=== PATIENT | male | born 1935 | race Caucasian/White ===

== ENCOUNTER → 2017-10-07 | Outpatient (CLI) | payer OTHER, MEDICARE | LOC: M RAD 07:36 | DX: Z12.2 Encounter for screening for malignant neoplasm of respiratory organs (principal); R06.02 Shortness of breath; J44.9 Chronic obstructive pulmonary disease, unspecified; I25.10 Atherosclerotic heart disease of native coronary artery without angina pectoris | CPT/HCPCS: G0297 ==

== ENCOUNTER → 2018-07-04 | Outpatient (CLI) | payer MEDICARE ==
[~2018-07-04] MED LIST: /THIA10TA; ACET65TA; AMIO1TAB; ASPI81TA3; COLA100C2; COUM1TAB; COUM1TAB18; COUM1TAB19; FERROUS GLUCONATE; HALO1TAB19; HYDROCODONE-ACETAMIN; KLON0.5T; LASI20TA; LOPR50TA; MILKSUS; MYLATAB; NITR0.4S; PRIL20CA; PROZ20CA; SENN8.6T5; SUCR1TAB56; THERGRAN; TYLENOL
[2018-07-04 09:26] LABS: INR 1.31; PROTHROMBIN TIME 16.5 SECONDS (12.1-14.4)
== END ==
LOC: M LAB 08:11
PROVIDERS: ATTEND Physician Assistant
DX: I48.0 Paroxysmal atrial fibrillation (principal)

== ENCOUNTER 2018-10-18 15:15 | Emergency (ER) | payer MEDICARE ==
[~2018-10-18] VITALS: Ht 170.2 cm; Wt 81.8 kg
[2018-10-18] MEDS ORDERED: IPRATROPIUM 0.5MG/ALBUTEROL 2.5MG INH SOL UD 3ML (DUONEB)(J7620) NEB ONE ×2 (16:00→20:45)
[2018-10-18 16:36] LABS: BASO % 0.4 % (0.0-1.0); EOS # 0.2 10^3/uL (0.0-0.50); EOS % 3.8 % (0.0-3.0); HEMATOCRIT 55.5 % (42.0-52.0); HEMOGLOBIN 18.2 g/dl (13.5-17.5); LYMPH # 1.7 10^3/uL (1.5-4.5); LYMPH % 33.3 % (24.0-44.0); MEAN CORPUSCULAR HEMOGLOBIN 35.3 pg (27.0-33.0); MEAN CORPUSCULAR HGB CONC 32.8 g/dl (32.0-36.5); MEAN CORPUSCULAR VOLUME 107.6 fl (80.0-96.0); MONO # 0.5 10^3/uL (0.0-0.8); MONO % 9.5 % (0.0-5.0); NEUTROPHILS # 2.7 10^3/uL (1.8-7.7); NEUTROPHILS % 52.8 % (36.0-66.0); PLATELET COUNT, AUTOMATED 106 10^3/uL (150-450); RED BLOOD COUNT 5.16 10^6/uL (4.30-6.10); WHITE BLOOD COUNT 5.1 10^3/uL (4.0-10.0)
[2018-10-18 16:43] LABS: INR 1.12; PROTHROMBIN TIME 14.1 SECONDS (11.8-14.0); VENOUS BASE EXCESS 5.3 (-2.0-2.0); VENOUS HCO3 33.1 MEQ/L (23.0-27.0); VENOUS O2 SATURATION 95.4 % (60.0-80.0); VENOUS PARTIAL PRESSURE CO2 58.9 mmHg (38.0-50.0); VENOUS PARTIAL PRESSURE O2 81.8 mmHg (30.0-50.0); VENOUS PH 7.368 UNITS (7.330-7.430); VENOUS STANDARD HCO3 29.1 MEQ/L; VENOUS TOTAL CO2 34.9 MEQ/L (24.0-28.0)
--- NOTE | 2018-10-18 16:50 | REP ---
PA and lateral chest: Comparison is 04/20/2015. Lung churchill are hyperinflated. This is unchanged. There is chronic interstitial coarsening, this is unchanged. The chronic lung findings are compatible with chronic lung disease. There are sternotomy wires, unchanged. Cardiac size is upper normal, unchanged. The arcelia, mediastinum, and skeletal structures are unchanged. Impression: There are chronic findings as described. There are no acute cardiopulmonary findings. Electronically Signed by Jorje Rodriguez MD 10/18/2018 04:41 P
[2018-10-18 17:04] LABS: ALBUMIN 3.3 GM/DL (3.2-5.2); ALT/SGPT 26 U/L (12-78); BILIRUBIN,DIRECT 0.1 MG/DL (0.0-0.2); BILIRUBIN,TOTAL 0.3 MG/DL (0.2-1.0); BLOOD UREA NITROGEN 11 MG/DL (7-18); CALCIUM LEVEL 8.8 MG/DL (8.8-10.2); CARBON DIOXIDE LEVEL 32 MEQ/L (21-32); CHLORIDE LEVEL 102 MEQ/L (98-107); CK-MB VALUE MASS 3.8 NG/ML (<3.6); CPK CREATINE PHOSPHOKINASE 110 U/L (39-308); CREATININE FOR GFR 0.82 MG/DL (0.70-1.30); GLOMERULAR FILTRATION RATE > 60.0 (>35); GLUCOSE, FASTING 114 MG/DL (70-100); MB/CK RELATIVE INDEX 3.45 (< OR =4); NT-PRO BNP 531 PG/ML (<450); POTASSIUM SERUM 4.4 MEQ/L (3.5-5.1); SODIUM LEVEL 139 MEQ/L (136-145); TOTAL PROTEIN 7.1 GM/DL (6.4-8.2); TROPONIN I 0.03 NG/ML (< 0.10)
[2018-10-18] MEDS ORDERED: NS 500 ML IV ONE (17:30)
[2018-10-18] MEDS ORDERED: DOXYCYCLINE HYCLATE 100 MG TAB PO ONE (19:45)
[2018-10-18 20:18] VITALS: O2SAT 89
[2018-10-18] MEDS ORDERED: DOXY100C37 PO (20:47)
[2018-10-18 21:13] VITALS: BP 136/75
[2018-10-19] MEDS ORDERED: MULTCAP PO (02:50)
[2018-10-19] MEDS ORDERED: ACET-683 PO (02:50)
[2018-10-19] MEDS ORDERED: OMEP-218 PO (02:52)
[2018-10-19] MEDS ORDERED: COMBAER6 INH (02:52)
[2018-10-19] MEDS ORDERED: NITR0.4S14 SL (02:52)
[2018-10-19] MEDS ORDERED: ATOR40TA75 PO (02:52)
[2018-10-19] MEDS ORDERED: ELIQ5TAB PO (02:52)
[2018-10-19] MEDS ORDERED: THIA100TA PO (02:52)
--- NOTE | 2018-10-19 21:14 | ECGEPIP ---
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
== END 2018-10-18 21:42 | disposition home or self-care (01) ==
LOC: M ED 15:15
DX: J44.9 Chronic obstructive pulmonary disease, unspecified (principal); I44.4 Left anterior fascicular block; I45.10 Unspecified right bundle-branch block; F33.9 Major depressive disorder, recurrent, unspecified; Z91.048 Other nonmedicinal substance allergy status; Z79.899 Other long term (current) drug therapy; Z79.82 Long term (current) use of aspirin; Z79.01 Long term (current) use of anticoagulants; F17.290 Nicotine dependence, other tobacco product, uncomplicated

== ENCOUNTER 2018-10-18 23:48 | Observation (INO) | payer MEDICARE ==
[~2018-10-18] VITALS: Ht 170.2 cm; Wt 85.2 kg
[~2018-10-18 23:48] MED LIST changes: +DOXY100C37 PO
[2018-10-19] MEDS ORDERED: IPRATROPIUM 0.5MG/ALBUTEROL 2.5MG INH SOL UD 3ML (DUONEB)(J7620) NEB ONE (02:15)
[2018-10-19] MEDS ORDERED: ACET-683 PO (02:50)
[2018-10-19] MEDS ORDERED: MULTCAP PO (02:50)
[2018-10-19] MEDS ORDERED: ELIQ5TAB PO (02:52)
[2018-10-19] MEDS ORDERED: NITR0.4S14 SL (02:52)
[2018-10-19] MEDS ORDERED: THIA100TA PO (02:52)
[2018-10-19] MEDS ORDERED: OMEP-218 PO (02:52)
[2018-10-19] MEDS ORDERED: ATOR40TA75 PO (02:52)
[2018-10-19] MEDS ORDERED: COMBAER6 INH (02:52)
[2018-10-19] MEDS ORDERED: MAALOX 30 ML SUSP *UDC PO PRN (03:00)
[2018-10-19] MEDS ORDERED: MOM 30ML SUSPENSION UDC PO PRN (03:00)
[2018-10-19] MEDS ORDERED: ACETAMINOPHEN TAB 650MG DOSE (2X325MG) PO PRN (03:00)
[2018-10-19] MEDS ORDERED: IPRATROPIUM 0.5MG/ALBUTEROL 2.5MG INH SOL UD 3ML (DUONEB)(J7620) NEB PRN (03:00)
--- NOTE | 2018-10-19 03:00 | HPEPDOC ---
General Date of Admission 10/19/18 Date of Service: Oct 19, 2018 Attending Physician: SUDHEER DENNIS MD Chief Complaint The patient is a 83-year-old male admitted with a reason for visit of Respiratory Iss[place]. Source: Patient, Family Exam Limitations: No limitations Timing/Duration: 1-3 hours Severity: Severe Associated Symptoms: Shortness of breath History of Present Illness 83 years old white male with past medical history of COPD 5. Double bypass pericardial window, aneurysm repair seen and discharged from ED with exacerbation of COPD as he has refused to be admitted and signed out AMA and left ,after about an hour he comes back to the ED and decides that he needs to be admitted as he was having shortness of breath at home. Patient complaining of increasing shortness of breath, no chest pain, nausea, vomiting, syncope, etc. Home Medications Scheduled Apixaban (Eliquis) 5 Mg Tablet, 5 MG PO BID, (Reported) Atorvastatin Calcium (Atorvastatin Calcium) 40 Mg Tablet, 40 MG PO QHS, (Reported) Ipratropium/Albuterol Sulfate (Combivent Respimat 20-100 Mcg) 4 Gm Mist.inhal, 1 PUFF INH QID, (Reported) Multivitamin (Multivitamins) 1 Each Capsule, 1 CAP PO QHS, (Reported) Omeprazole (Omeprazole) 20 Mg Capsule.dr, 20 MG PO DAILY, (Reported) Thiamine Hcl (Vitamin B-1) 100 Mg Tablet, 100 MG PO QHS, (Reported) Scheduled PRN Acetaminophen (Acetaminophen) 500 Mg Tablet, 500 MG PO Q6H PRN for PAIN, (Reported) Nitroglycerin (Nitroglycerin) 0.4 Mg Tab.subl, 0.4 MG SL Q5MP PRN for CHEST PAIN , (Reported) Allergies Coded Allergies: TAPE (Unverified Adverse Reaction, Intermediate, CAUSED REDNESS AND SKIN T EARS, 10/18/18) Past Medical History Medical History COPD, active smoker, bypass surgery, pericardial window, aneurysm repair status, CAD, history of hypertension, GERD Surgical History Hemorrhoidectomy pericardial window, triple bypass surgery and aneurysm repair Family History No pertinent family history Social History * Smoker: current smoker Alcohol: Denies Drugs: denies A-FIB/CHADSVASC A-FIB History Current/History of A-Fib/PAF?: Yes Current PO Anticoag Therapy: Yes Review of Systems Constitutional: Denies: Chills, Fever, Malaise, Night Sweats, Weakness, Fatigue, Weight Loss, Lethargy, Other Eyes: Denies: Pain, Vision change, Conjunctivae inflammation, Eyelid inflammation, Redness, Other ENT: Denies: Head Aches, Ear Pain, Dysphagia, Sinus Congestion, Post Nasal Drip, Sore Throat, Epistaxis, Other Symptoms Skin: Denies: Rash, Lesions, Jaundice, Bruising, Itching, Dry, Breakdown, Nail Changes, Other Pulmonary: Reports: Dyspnea Cardiovascular: Denies: Chest Pain, Palpitations, Orthopnea, Paroxysmal Noc. Dyspnea, Edema, Lt Headedness, Other Symptoms Gastrointestinal: Denies: Nausea, Vomiting, Abdominal Pain, Diarrhea, Consti pation, Melena, Hematochezia, Other Symptoms Genitourinary: Denies: Dysuria, Frequency, Incontinence, Hematuria, Retention, Other Symptoms Hematologic: Denies: Bruising, Bleeding Excessively, Petecchia, Purpura, Enlarged Lymph Nodes, Other Hematologic Endocrine: Denies: Polydipsia, Polyphagia, Polyuria, Heat Intolerance, Cold Intolerance, Other Endocrine Sx Musculoskeletal: Denies: Neck Pain, Back Pain, Shoulder Pain, Arm Pain, Hand Pain, Leg Pain, Foot Pain, Joint Pain, Muscle Pain, Spasms, Other Symptoms Neurological: Denies: Weakness, Numbness, Incoordination, Change in speech, Confusion, Seizures, Other Symptoms Psych: Denies: Mood Normal, Anxiety, Depression, Memory Issues, Thoughts of Self Harm, Anger, Thoughts of Harming Other, Other Psych Physical Examination General Exam: Positive: Alert, Cooperative Eye Exam: Positive: PERRLA, Conjunctiva & lids normal ENT Exam: Positive: Atraumatic, Mucous membr. moist/pink Neck Exam: Positive: Supple Chest Exam: Positive: Wheezing Heart Exam: Positive: Rate Normal, Normal S1, Normal S2 Abdomen Exam: Positive: Normal bowel sounds, Soft Extremity Exam: Positive: Normal pulses Skin Exam: Positive: Nl turgor and temperature Neuro Exam: Positive: Strength at 5/5 X4 ext, Normal Tone, Sensation Intact Psych Exam: Positive: Mental status NL, Mood NL Vital Signs Vital Signs Date Time Temp Pulse Resp B/P (MAP) Pulse Ox O2 Delivery O2 Flow Rate FiO2 10/19/18 02:10 Nasal Cannula 2.0 10/19/18 01:45 64 163/86 (111) 93 10/18/18 23:48 97.2 22 Problems (1) COPD (chronic obstructive pulmonary disease) Status: Acute Problem Text: 83 years old white male who was seen earlier in ED and the sign out AMA, came back again with increasing shortness of breath. Patient has a COPD with X frequent exacerbation and he is not on home oxygen but came in for admission this time Admitted to medical floor , Solu-Medrol 80 mg IV every 8 hours DuoNeb every 6 hours and every 2 hours when necessary Oxygen support Continue home meds Extensive counseling regarding smoking cessation was done. Mom patient is an active smoker DVT prophylaxis with Lovenox Activity as tolerated (2) HTN (hypertension) Status: Chronic Problem Text: Under well control Continue home meds Plan / VTE VTE Prophylaxis Ordered?: Yes SUDHEER DENNIS MD Oct 19, 2018 03:00
[2018-10-19] MEDS: methylPREDNISolone INJ 125 MG/2 ML VIAL (J2930) IV SCH ×3 (03:21→18:48)
[2018-10-19 04:10] VITALS: BP 154/75
[2018-10-19] MEDS: IPRATROPIUM 0.5MG/ALBUTEROL 2.5MG INH SOL UD 3ML (DUONEB)(J7620) NEB SCH ×3 (08:03→20:47)
[2018-10-19] MEDS: APIXABAN 5 MG TAB (ELIQUIS) PO SCH ×2 (08:53→20:29)
[2018-10-19] MEDS: PANTOPRAZOLE 20 MG TAB PO SCH (08:53)
[2018-10-19] MEDS: DOCUSATE SODIUM 100 MG CAP PO SCH ×2 (08:53→20:28)
[2018-10-19] MEDS ORDERED: ENOXAPARIN 40 MG/0.4 ML SYRINGE (J1650) SC SCH (09:00)
[2018-10-19 14:00] VITALS: BP 128/70
[2018-10-19] MEDS: ATORVASTATIN 20 MG TAB PO SCH (20:28)
[2018-10-19] MEDS: THIAMINE 100 MG TAB PO SCH (20:29)
[2018-10-19 22:00] VITALS: BP 125/61
[2018-10-20] MEDS: IPRATROPIUM 0.5MG/ALBUTEROL 2.5MG INH SOL UD 3ML (DUONEB)(J7620) NEB SCH ×4 (01:49→20:00)
[2018-10-20] MEDS: methylPREDNISolone INJ 125 MG/2 ML VIAL (J2930) IV SCH ×2 (02:37→14:46)
[2018-10-20 06:00] VITALS: BP 114/60
[2018-10-20 06:29] LABS: HEMATOCRIT 51.9 % (42.0-52.0); HEMOGLOBIN 16.9 g/dl (13.5-17.5); MEAN CORPUSCULAR HEMOGLOBIN 34.7 pg (27.0-33.0); MEAN CORPUSCULAR HGB CONC 32.6 g/dl (32.0-36.5); MEAN CORPUSCULAR VOLUME 106.6 fl (80.0-96.0); PLATELET COUNT, AUTOMATED 121 10^3/uL (150-450); RED BLOOD COUNT 4.87 10^6/uL (4.30-6.10)
[2018-10-20 06:56] LABS: ALBUMIN 3.1 GM/DL (3.2-5.2); ALT/SGPT 23 U/L (12-78); BILIRUBIN,TOTAL 0.3 MG/DL (0.2-1.0); BLOOD UREA NITROGEN 17 MG/DL (7-18); CALCIUM LEVEL 8.7 MG/DL (8.8-10.2); CARBON DIOXIDE LEVEL 32 MEQ/L (21-32); CHLORIDE LEVEL 102 MEQ/L (98-107); GLOMERULAR FILTRATION RATE > 60.0 (>35); GLUCOSE, FASTING 157 MG/DL (70-100); MAGNESIUM LEVEL 2.1 MG/DL (1.8-2.4); POTASSIUM SERUM 4.4 MEQ/L (3.5-5.1); SODIUM LEVEL 137 MEQ/L (136-145); TOTAL PROTEIN 7.1 GM/DL (6.4-8.2)
[2018-10-20] MEDS: DOCUSATE SODIUM 100 MG CAP PO SCH ×2 (08:31→21:13)
[2018-10-20] MEDS: PANTOPRAZOLE 20 MG TAB PO SCH (08:31)
[2018-10-20] MEDS: APIXABAN 5 MG TAB (ELIQUIS) PO SCH ×2 (08:31→21:13)
--- NOTE | 2018-10-20 10:53 | IPNPDOC ---
Subjective Date Seen The patient was seen on 10/20/18. Subjective Chief Complaint/HPI Patient seen and examined at bedside. He is currently requiring 2 L of oxygen at this time. However, notes that his shortness of breath has improved. States that he has been walking in his room. However, continues to have some wheezing. No acute overnight events noted. Objective Physical Examination General Exam: Positive: Alert, Cooperative, No Acute Distress ENT Exam: Positive: Atraumatic, Mucous membr. moist/pink Neck Exam: Negative: JVD Chest Exam: Positive: Wheezing, Diminished Heart Exam: Positive: Rate Normal, Normal S1, Normal S2 Abdomen Exam: Positive: Soft; Negative: Tenderness Extremity Exam: Negative: Tenderness, Swelling Psych Exam: Positive: Mental status NL, Mood NL, Oriented x 3 Assessment /Plan Problems (1) COPD (chronic obstructive pulmonary disease) Status: Acute Response to Treatment: Improving Problem Text: Reports that his respiratory status is improving, and notes less shortness of breath Solu-Medrol 80 mg IV every 8 hours titrated down to 40mg every 12 DuoNeb every 6 hours scheduled and every 2 hours when necessary Patient requiring 2 L of oxygen via nasal cannula at this time (not on oxygen at baseline), we will down titrate this as tolerated We will continue to monitor patient's respiratory status, and hopefully switch him over to by mouth prednisone taper starting tomorrow. Plan/VTE VTE Prophylaxis Ordered?: Yes VS, I&O, 24H, Fishbone Vital Signs/I&O Vital Signs Date Time Temp Pulse Resp B/P (MAP) Pulse Ox O2 Delivery O2 Flow Rate FiO2 10/20/18 06:00 97.6 74 20 114/60 (78) 95 2.0 10/19/18 03:45 Nasal Cannula I&O- Last 24 Hours up to 6 AM 10/20/18 06:00 Intake Total 1660 ml Output Total 0 ml Balance 1660 ml Laboratory Data 24H LABS Laboratory Tests 2 10/20/18 05:42: Nucleated Red Blood Cells % (auto) 0.0, Anion Gap 3L, Glomerular Filtration Rate > 60.0, Blood Urea Nitrogen 17#, Creatinine 0.90, Sodium Level 137, Potassium Level 4.4, Chloride Level 102, Carbon Dioxide Level 32, Calcium Level 8.7L, Aspartate Amino Transf (AST/SGOT) 17, Alanine Aminotransferase (ALT/SGPT) 23, Alkaline Phosphatase 45, Total Bilirubin 0.3, Total Protein 7.1, Albumin 3.1L, Magnesium Level 2.1, Albumin/Globulin Ratio 0.78L CBC/BMP Laboratory Tests 10/20/18 05:42 Red Blood Count 4.87, Mean Corpuscular Volume 106.6 H, Mean Corpuscular Hemoglobin 34.7 H, Mean Corpuscular Hemoglobin Concent 32.6, Red Cell Distribution Width 12.7, Calcium Level 8.7 L, Aspartate Amino Transf (AST/SGOT) 17, Alanine Aminotransferase (ALT/SGPT) 23, Alkaline Phosphatase 45, Total Bilirubin 0.3, Total Protein 7.1, Albumin 3.1 L MARISABEL HUGHES MD Oct 20, 2018 10:53
[2018-10-20 14:00] VITALS: BP 135/60
[2018-10-20] MEDS: THIAMINE 100 MG TAB PO SCH (21:13)
[2018-10-20] MEDS: ATORVASTATIN 20 MG TAB PO SCH (21:13)
[2018-10-20 22:00] VITALS: BP 132/66
[2018-10-21] MEDS: IPRATROPIUM 0.5MG/ALBUTEROL 2.5MG INH SOL UD 3ML (DUONEB)(J7620) NEB SCH ×2 (01:12→07:12)
[2018-10-21] MEDS: methylPREDNISolone INJ 125 MG/2 ML VIAL (J2930) IV SCH (03:51)
[2018-10-21 06:00] VITALS: BP 123/65
[2018-10-21] MEDS: DOCUSATE SODIUM 100 MG CAP PO SCH (08:26)
[2018-10-21] MEDS: APIXABAN 5 MG TAB (ELIQUIS) PO SCH (08:26)
[2018-10-21] MEDS: PANTOPRAZOLE 20 MG TAB PO SCH (08:26)
[2018-10-21] MEDS ORDERED: PRED20TA PO (08:48)
[2018-10-21] MEDS ORDERED: ALBU8.5H IH (08:48)
--- NOTE | 2018-10-21 08:55 | DS.PDOC ---
Discharge Summary General Date of Admission Oct 18, 2018 at 23:49 Date of Discharge 10/21/18 Primary Care Physician: JAROCHO MONAE Attending Physician: VANESSA ELLISON DO Discharge Summary PROCEDURES PERFORMED DURING STAY:NONE ADMITTING DIAGNOSES: 1.COPD Exacerbation DISCHARGE DIAGNOSES: 1. COPD EXACERBATION COMPLICATIONS/CHIEF COMPLAINT: COPD. HISTORY OF PRESENT ILLNESS: 83 years old white male with past medical history of COPD , Double bypass w pe ricardial window, aneurysm repair who was seen and discharged from ED with exacerbation of COPD as he has refused to be admitted and signed out AMA and left ,after about an hour he comes back to the ED and decides that he needs to be admitted as he was having shortness of breath at home. See H&P for details HOSPITAL COURSE: placed under observation, continued home meds and started on IV steroids and nebulizers. Continued to improve and prior to discharge states he breathing was at baseline and was ambulating in room without supplemental oxygen. DISCHARGE MEDICATIONS: Please see below. ALLERGIES: Please see below. PHYSICAL EXAMINATION ON DISCHARGE: VITAL SIGNS: Please see below. General: pleasant, NAD AAOx3 HRRR LCTA no W/R/R Ext: no edema LABORATORY DATA: Please see below. ACTIVITY: as tolerated; avoid outdoor activity/exercise on hot muggy days DIET:as tolerated DISCHARGE PLAN: discharge home DISCHARGE INSTRUCTIONS: 1. follow up PCP in 5-7 days 2. albuterol rescue inhaler as needed 3. steroid taper ([id number], 30mg x3days, 20mg x2 days, 10mg and stop) DISCHARGE CONDITION: stable TIME SPENT ON DISCHARGE: 20 minutes. Vital Signs/I&Os Vital Signs Date Time Temp Pulse Resp B/P (MAP) Pulse Ox O2 Delivery O2 Flow Rate FiO2 10/21/18 06:00 97.9 73 20 123/65 (84) 91 2.0 10/19/18 03:45 Nasal Cannula I&O- Last 24 Hours up to 6 AM 10/21/18 06:00 Intake Total 1680 ml Output Total 0 ml Balance 1680 ml Laboratory Data Labs 24H Laboratory Tests 10/20/18 05:42 Red Blood Count 4.87, Mean Corpuscular Volume 106.6 H, Mean Corpuscular Hemoglobin 34.7 H, Mean Corpuscular Hemoglobin Concent 32.6, Red Cell Distribution Width 12.7, Calcium Level 8.7 L, Aspartate Amino Transf (AST/SGOT) 17, Alanine Aminotransferase (ALT/SGPT) 23, Alkaline Phosphatase 45, Total Bilirubin 0.3, Total Protein 7.1, Albumin 3.1 L Discharge Medications Scheduled Apixaban (Eliquis) 5 Mg Tablet, 5 MG PO BID, (Reported) Atorvastatin Calcium (Atorvastatin Calcium) 40 Mg Tablet, 40 MG PO QHS, (Reported) Ipratropium/Albuterol Sulfate (Combivent Respimat 20-100 Mcg) 4 Gm Mist.inhal, 1 PUFF INH QID, (Reported) Multivitamin (Multivitamins) 1 Each Capsule, 1 CAP PO QHS, (Reported) Omeprazole (Omeprazole) 20 Mg Capsule.dr, 20 MG PO DAILY, (Reported) Prednisone (Prednisone) 20 Mg Tablet, 1 TAB PO ASDIRECTED 40MG DAILY FOR 4 DAYS, 30MG FOR 3 DAYS, 20MG FOR 2 DAYS, 10MG FOR 1 DAY AND STOP Thiamine Hcl (Vitamin B-1) 100 Mg Tablet, 100 MG PO QHS, (Reported) Scheduled PRN Acetaminophen (Acetaminophen) 500 Mg Tablet, 500 MG PO Q6H PRN for PAIN, (Re ported) Albuterol Sulfate (Albuterol Sulfate Hfa) 8.5 Gm Hfa.aer.ad, 8.5 GM IH Q4HP PRN for SHORTNESS OF BREATH Nitroglycerin (Nitroglycerin) 0.4 Mg Tab.subl, 0.4 MG SL Q5MP PRN for CHEST PAIN , (Reported) Allergies Coded Allergies: TAPE (Unverified Adverse Reaction, Intermediate, CAUSED REDNESS AND SKIN TEARS, 10/18/18) VANESSA ELLISON DO Oct 21, 2018 08:49
== END 2018-10-21 12:28 | disposition home or self-care (01) ==
LOC: M ED 23:48 → M ED INP 23:49 → M MSPAV 10-19 04:08
PROVIDERS: ADMIT Internal Medicine; ATTEND Family Medicine
DX: J44.1 Chronic obstructive pulmonary disease with (acute) exacerbation (principal); I25.10 Atherosclerotic heart disease of native coronary artery without angina pectoris; I10 Essential (primary) hypertension; K21.9 Gastro-esophageal reflux disease without esophagitis; I48.91 Unspecified atrial fibrillation; Z79.01 Long term (current) use of anticoagulants; Z95.1 Presence of aortocoronary bypass graft; Z79.52 Long term (current) use of systemic steroids; Z79.51 Long term (current) use of inhaled steroids; Z79.899 Other long term (current) drug therapy
CPT/HCPCS: 36415; 71046; 80048; 80053; 80076; 82550; 82553; 82803; 83605; 83735; 83880; 84443; 84484; 85025; 85027; 85610; 87040; 93005; 93041; 94640; 96374; 96376; 99285; G0378; J2930

== ENCOUNTER 2018-11-05 09:25 | Inpatient (IN) | payer MEDICARE ==
[~2018-11-05] VITALS: Ht 172.7 cm; Wt 83.0 kg
[~2018-11-05 09:25] MED LIST changes: +ACET-683 PO; +ALBU8.5H IH; +ATOR40TA75 PO; +COMBAER6 INH; +ELIQ5TAB PO; +MULTCAP PO; +NITR0.4S14 SL; +OMEP-218 PO; +PRED20TA PO; +THIA100TA PO
--- NOTE | 2018-11-05 10:32 | REP ---
PROCEDURE: CT scan of the head was performed without IV contrast in the axial plane. INDICATION: Trauma. COMPARISON: CT head of 01/07/2008. FINDINGS: There is minimal thickening of the anterior right frontal scalp. There is no calvarial fracture. There is no acute intracranial hemorrhage, midline shift or basal cisterns effacement. There is similar asymmetry of the frontal horns of the lateral ventricles, right smaller than left. There is no hydrocephalus. There are periventricular hypodensities which are nonspecific but suggestive of microvascular ischemic disease. Note is made intracranial vascular calcifications. The orbits are intact. The visualized paranasal sinuses and mastoid air cells are grossly aerated. IMPRESSION: No acute intracranial abnormality. Electronically Signed by Francheska Santana MD 11/05/2018 10:24 A
[2018-11-05 10:45] LABS: BASO % 0.4 % (0.0-1.0); EOS # 0.2 10^3/uL (0.0-0.50); EOS % 3.8 % (0.0-3.0); HEMATOCRIT 53.7 % (42.0-52.0); HEMOGLOBIN 17.8 g/dl (13.5-17.5); LYMPH % 36.4 % (24.0-44.0); MEAN CORPUSCULAR HEMOGLOBIN 34.2 pg (27.0-33.0); MEAN CORPUSCULAR HGB CONC 33.1 g/dl (32.0-36.5); MEAN CORPUSCULAR VOLUME 103.1 fl (80.0-96.0); MONO # 0.4 10^3/uL (0.0-0.8); MONO % 7.4 % (0.0-5.0); NEUTROPHILS # 2.9 10^3/uL (1.8-7.7); NEUTROPHILS % 51.8 % (36.0-66.0); PLATELET COUNT, AUTOMATED 112 10^3/uL (150-450); RED BLOOD COUNT 5.21 10^6/uL (4.30-6.10); WHITE BLOOD COUNT 5.5 10^3/uL (4.0-10.0)
[2018-11-05 10:54] LABS: INR 1.22; PROTHROMBIN TIME 15.1 SECONDS (11.8-14.0)
[2018-11-05 11:21] LABS: BLOOD UREA NITROGEN 13 MG/DL (7-18); CALCIUM LEVEL 9.1 MG/DL (8.8-10.2); CARBON DIOXIDE LEVEL 32 MEQ/L (21-32); CHLORIDE LEVEL 103 MEQ/L (98-107); CK-MB VALUE MASS 3.2 NG/ML (<3.6); CPK CREATINE PHOSPHOKINASE 109 U/L (39-308); GLOMERULAR FILTRATION RATE > 60.0 (>35); GLUCOSE, FASTING 149 MG/DL (70-100); MAGNESIUM LEVEL 2.1 MG/DL (1.8-2.4); MB/CK RELATIVE INDEX 2.94 (< OR =4); POTASSIUM SERUM 4.5 MEQ/L (3.5-5.1); SODIUM LEVEL 139 MEQ/L (136-145); TROPONIN I < 0.02 NG/ML (< 0.10)
[2018-11-05] MEDS ORDERED: ASPI81TA85 PO (13:08)
[2018-11-05] MEDS ORDERED: PROAAER10 INH (13:08)
[2018-11-05] MEDS ORDERED: OMEG10002 PO (13:08)
[2018-11-05] MEDS ORDERED: NITR0.4S14 SL (13:11)
[2018-11-05] MEDS ORDERED: MOM 30ML SUSPENSION UDC PO PRN (14:00)
[2018-11-05] MEDS ORDERED: ACETAMINOPHEN TAB 650MG DOSE (2X325MG) PO PRN (14:00)
[2018-11-05] MEDS ORDERED: ALBUTEROL 90 MCG/ACT 8GM HFA INHALER INH PRN (14:00)
--- NOTE | 2018-11-05 14:41 | HPEPDOC ---
General Date of Admission 11/05/18 Date of Service: Nov 05, 2018 Attending Physician: STEPHANIE DAS DO Chief Complaint The patient is a 83-year-old male admitted with a reason for visit of Head Inj ury. History of Present Illness Patient is 83 years old male with past medical history COPD, atrial fibrillation, bypass cardiac surgery presented hospital with history of recent syncope. Patient states he developed syncope yesterday when he was walking to the bathroom. Patient did not have any reconciliation of this event, he did not any urinary or fecal incontinence. Patient stated that he had a few episodes of syncope in the past 2 years. Denied any dizziness prior to his syncope. Patient states he drinks 1 glass of hard liquor every day. On admission patient was found to have negative head CAT scan. Patient denies fever, chills, nausea, vomiting, chest pain, palpitations, diarrhea or dysuria. Home Medications Scheduled Apixaban (Eliquis) 5 Mg Tablet, 5 MG PO BID, (Reported) Aspirin (Aspir 81) 81 Mg Tablet.dr, 81 MG PO DAILY, (Reported) Atorvastatin Calcium (Atorvastatin Calcium) 40 Mg Tablet, 40 MG PO QHS, (Reported) Ipratropium/Albuterol Sulfate (Combivent Respimat 20-100 Mcg) 4 Gm Mist.inhal, 1 PUFF INH QID, (Reported) Multivitamin (Multivitamins) 1 Each Capsule, 1 CAP PO QHS, (Reported) [place]-3/Dha/Epa/Fish Oil (Fish Oil 1,000 mg Softgel) 1 Each Capsule, 2 CAP PO DAILY, (Reported) Omeprazole (Omeprazole) 20 Mg Capsule.dr, 20 MG PO DAILY, (Reported) Thiamine Hcl (Vitamin B-1) 100 Mg Tablet, 100 MG PO QHS, (Reported) Scheduled PRN Acetaminophen (Acetaminophen) 500 Mg Tablet, 500 MG PO Q6H PRN for PAIN, (Reported) Albuterol Sulfate (Proair Hfa) 8.5 Gm Hfa.aer.ad, 2 PUFF INH Q4H PRN for SOB/WHEEZING, (Reported) Nitroglycerin (Nitroglycerin) 0.4 Mg Tab.subl, 0.4 MG SL NITRO PRN for CHEST PAIN, (Reported) Allergies Coded Allergies: TAPE (Unverified Adverse Reaction, Intermediate, CAUSED REDNESS AND SKIN TEARS, 10/18/18) Past Medical History Medical History COPD, active smoker, bypass surgery, pericardial window, aneurysm repair status, CAD, history of hypertension, GERD, AFIB Surgical History Hemorrhoidectomy pericardial window, triple bypass surgery and aneurysm repair Family History Significant Family History: No pertinent family hx Social History * Smoker: quit less than 1 year Alcohol: heavy Drugs: denies A-FIB/CHADSVASC A-FIB History Current/History of A-Fib/PAF?: Yes Current PO Anticoag Therapy: Yes Treatment Treatment ordered: Apixaban Review of Systems Other systems A pertinent 10 ROS was completed negative except stated in the HPI Physical Examination General Exam: Positive: Alert, Cooperative, No Acute Distress Eye Exam: Positive: PERRLA, Conjunctiva & lids normal, EOMI ENT Exam: Positive: Atraumatic, Mucous membr. moist/pink Neck Exam: Positive: Supple, +2 carotid pulse wo bruit; Negative: JVD, thyromegaly Chest Exam: Positive: Clear to auscultation, Normal air movement; Negative: Rales Heart Exam: Positive: Rate Normal, Irregular Rhythm Telemetry: Positive: No significant arrhythmia Abdomen Exam: Positive: Normal bowel sounds; Negative: BS Hyperactive, Tenderness Extremity Exam: Negative: Edema Skin Exam: Positive: Nl turgor and temperature; Negative: Rash Neuro Exam: Positive: Normal Speech, Strength at 5/5 X4 ext, Cranial Nerves 3- 12 NL Psych Exam: Positive: Mental status NL, Oriented x 3 Vital Signs Vital Signs Date Time Temp Pulse Resp B/P (MAP) Pulse Ox O2 Delivery O2 Flow Rate FiO2 11/05/18 12:25 60 18 90 Room Air 11/05/18 10:58 123/59 (80) 123/66 (85) 119/68 (85) 11/05/18 09:25 97.6 Laboratory Data Labs 24H Laboratory Tests 2 11/05/18 09:49: Immature Granulocyte % (Auto) 0.2, White Blood Count 5.5, Red Blood Count 5.21, Hemoglobin 17.8H, Hematocrit 53.7H, Mean Corpuscular Volume 103.1H, Mean Corpuscular Hemoglobin 34.2H, Mean Corpuscular Hemoglobin Concent 33.1, Red Cell Distribution Width 12.9, Platelet Count 112L, Neutrophils (%) (Auto) 51.8, Lymphocytes (%) (Auto) 36.4, Monocytes (%) (Auto) 7.4H, Eosinophils (%) (Auto) 3.8H, Basophils (%) (Auto) 0.4, Neutrophils # (Auto) 2.9, Lymphocytes # (Auto) 2.0, Monocytes # (Auto) 0.4, Eosinophils # (Auto) 0.2, Basophils # (Auto) 0.0, Nucleated Red Blood Cells % (auto) 0.0, Prothrombin Time 15.1H, Prothromb Time International Ratio 1.22, Anion Gap 4L, Glomerular Filtration Rate > 60.0, Blood Urea Nitrogen 13, Creatinine 0.90, Sodium Level 139, Potassium Level 4.5, Chloride Level 103, Carbon Dioxide Level 32, Calcium Level 9.1, Total Creatine Kinase 109, Magnesium Level 2.1, Creatine Kinase MB 3.2, Creatine Kinase MB Relative Index 2.94, Troponin I < 0.02, Thyroid Stimulating Hormone (TSH) 1.600 11/05/18 10:33: POC Glucose (Misc Panel) 148H, POC Sodium (Misc Panel) 136, POC Potassium (Misc Panel) 4.5, POC Chloride (Misc Panel) 100, POC Total CO2 (Misc Panel) 27.0, POC Blood Urea Nitrogen (Misc Panel 14, POC Ionized Calcium (Misc Panel) 4.5, POC Creatinine (Misc Panel) 0.8, POC Hematocrit (Misc Panel) 56.0H 11/05/18 10:53: Bedside Glucose (Misc Panel) 148H CBC/BMP Laboratory Tests 11/05/18 09:49 Red Blood Count 5.21, Mean Corpuscular Volume 103.1 H, Mean Corpuscular Hemoglobin 34.2 H, Mean Corpuscular Hemoglobin Concent 33.1, Red Cell Distribution Width 12.9, Neutrophils (%) (Auto) 51.8, Lymphocytes (%) (Auto) 36.4, Monocytes (%) (Auto) 7.4 H, Eosinophils (%) (Auto) 3.8 H, Basophils (%) (Auto) 0.4, Neutrophils # (Auto) 2.9, Lymphocytes # (Auto) 2.0, Monocytes # (Auto) 0.4, Eosinophils # (Auto) 0.2, Basophils # (Auto) 0.0, Calcium Level 9.1, Total Creatine Kinase 109 Assessment/Plan syncopy -Unclear etiology Secondary to dehydration, cardiac arrhythmia Vital signs orthostatic Appreciate/agree with environmental marketer consult Echo Telemetry Atrial fibrillation Continue anticoagulation by mouth Telemetry COPD not in an acute exacerbation Continue home inhalers EtOH abuse Patient is high risk of alcohol withdrawal. Place on alcohol withdrawal protocol DVT prophylaxis Fully anticoagulated Plan / VTE VTE Prophylaxis Ordered?: Yes STEPHANIE DAS DO Nov 05, 2018 14:41
[2018-11-05] MEDS: IPRATROPIUM 0.5MG/ALBUTEROL 2.5MG INH SOL UD 3ML (DUONEB)(J7620) INH SCH ×2 (16:00→19:58)
[2018-11-05 16:16] VITALS: BP 146/75
--- NOTE | 2018-11-05 17:57 | ECGEPIP ---
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
[2018-11-05] MEDS ORDERED: LORazepam 2 MG TAB PO PRN (18:45)
[2018-11-05 18:57] VITALS: BP 146/75
[2018-11-05] MEDS: MULTIVITAMINS/MINERALS THERAP 1 TAB PO SCH (19:03)
[2018-11-05] MEDS: FOLIC ACID 1 MG TAB PO SCH (19:03)
[2018-11-05] MEDS: ATORVASTATIN 20 MG TAB PO SCH (20:54)
[2018-11-05] MEDS: APIXABAN 5 MG TAB (ELIQUIS) PO SCH (20:54)
[2018-11-05] MEDS: THIAMINE 100 MG TAB PO SCH (20:54)
[2018-11-05 22:00] VITALS: BP 132/78
[2018-11-05 22:20] VITALS: BP_SYST 106; BP_SYST 113; BP_SYST 117; BP_DIAS 64; BP_DIAS 65; BP_DIAS 66
--- NOTE | 2018-11-05 23:09 | ECHO ---
DATE OF PROCEDURE: 11/05/2018 Date of : 1935 Age: 83 REFERRING PHYSICIAN: Calvin Barrera MD PATIENT LOCATION: Room 4223 REASON FOR EXAM: Syncope. 2D MEASUREMENTS: IVS: 1.6 cm LV: 4.6 cm LVPW: 1.3 cm LA: 3.6 cm Aorta: 3.4 cm IVC: 1.2 cm DOPPLER MEASUREMENTS: Peak velocity across the aortic valve: 1.5 m/s Peak velocity across the LVOT: 0.56 m/s Mitral E: 0.30, Mitral A: 0.64 with a ratio of 0.5 Maximum tricuspid valve velocity; 2.3 m/s 2D COMMENTS: 1. Normal left ventricular size with moderately increased left ventricular wall thickness and a depressed global left ventricular systolic function. The estimated left ventricular systolic ejection fraction is 40-45%. 2. Normal left atrium. The right atrium and the right ventricle appeared to be mildly enlarged. The right ventricular free wall was not well visualized. 3. The atrial septum appeared to be normal without evidence of defect or shunt. 4. Normal aortic root. 5. No pericardial effusion seen. 6. Mildly calcified aortic valve with normal leaflet excursion. Mildly calcified mitral annulus with normal anterior mitral valve leaflet motion. Normal tricuspid valve and pulmonic valve. The proximal pulmonary artery branches were not well visualized. 7. The inferior vena cava was normal in size, central venous pressure might be normal. DOPPLER: No significant valvular abnormalities detected. There was mild tricuspid regurgitation with a peak velocity across the tricuspid valve of 2.3 m/s corresponding with probably a pulmonary artery systolic pressure of about 30-40 mmHg. Abnormal relaxation pattern was noted across the mitral valve leaflets as well as the mitral valve annulus consistent with features of grade 1 left ventricular diastolic dysfunction. IMPRESSION 1. Mild global left ventricular systolic dysfunction with probably moderate concentric left ventricular hypertrophy. There are some features of grade 1 left ventricular diastolic dysfunction, abnormal relaxation. 2. Aortic valve sclerosis without stenosis or aortic regurgitation. 3. Isolated mitral annulus calcification. No evidence of mitral regurgitation or mitral stenosis. 4. Mild tricuspid regurgitation with probably mild pulmonary hypertension. The right heart chambers appeared to be enlarged in limited views. The right ventricular free wall was not well visualized. MTDD
[2018-11-06] VITALS (14 sets, daily range): BP systolic 106–145; BP diastolic 62–109
--- NOTE | 2018-11-06 06:45 | CR ---
DATE OF CONSULTATION: 11/05/2013 CARDIOLOGY CONSULTATION. REFERRING PHYSICIAN: Dr. Calvin Flores. INDICATION: Recurrent syncopal spell, abnormal EKG. 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 He was last seen in our office June 2018 and at that point was chiefly limited by his chronic smoking induced obstructive lung disease, denying any other cardiovascular complaints including any lightheadedness or dizziness. He was compliant with his combination medical therapy including an anticoagulant and his EKG showed sinus rhythm at 66 bpm with left anterior hemiblock and right bundle branch block and small lateral Q-waves. Repolarization abnormalities were not changed from December 2017. October 18, 2018 presented to the emergency room with an exacerbation of his chronic pulmonary obstructive disease (COPD). He apparently responded well to intravenous (IV) steroid therapy with bronchodilators. Since his discharge October 21, 2018, he had resumed much of his customary activities including cutting his grass and walking on his treadmill at a slow speed for up to 15 minutes. Dyspnea remained his chief ever limiting symptom. Two days ago 70 hours after having cut the lawn just prior to eating dinner at the p.m. he was walking from the kitchen toward the bathroom when he collapsed. His was not in the room heard the crash and came to his attention immediately. By the time she arrived he was awake on the floor but appeared somewhat dazed. There was no seizure activity, incontinence or significant injury. There was no lateralizing neurological event. An ambulance was summoned and on the monitor it showed his conduction problems with occasional frequent irregularities but his blood pressure was fine. His respiratory rate and oxygen levels were fine. He was still urged to come to the hospital for evaluation but refused. The next day his contacted his primary physician and he was made aware of his fall. Knowing he was receiving Eliquis oral anticoagulant therapy he insisted that the patient to present to the emergency room should he develop a headache or neurological symptoms such as change in level awareness. This morning he did wake up with a headache and he was persuaded to seek evaluation. Upon his arrival in the emergency room vital signs recorded. He was alert and bright and orientated; heart rate was 76 beats per minute, blood pressure 139/69 with respiratory rate 16, O2 saturation 91% on room air and he was afebrile. Because of his right-sided headache a CT scan was performed showing a minimal thickening of the anterior right frontal scalp but no fracture, intracranial hemorrhage or midline shift, evidence of microvascular ischemic disease with some intracranial vascular calcifications but no significant abnormality. EKG showed sinus rhythm at 67 bpm with occasional premature ventricular contractions (PVCs), left anterior hemiblock and right bundle branch block. Blood work did not show any significant abnormality. In light of his syncopal spell and bifascicular block his admission was arranged to a telemetry unit for observation. Cardiology consultation was placed. Currently as mentioned dyspnea is his ultimate ever limiting symptom and apparently since his discharge in September he believes his effort tolerance was back to baseline. Has been free of any effort related chest, jaw or arm discomfort, apparently has been sleeping with intermittent difficulties as before with some daytime sleepiness, has been unaware of his heart action and since his event has been free of any lightheadedness. Denies any lateralizing neurological symptoms such as amaurosis fugax, numbness or weakness in an arm or leg or difficulty speaking. Claims to have been compliant with his medical therapy. OTHER PAST CARDIAC PROBLEMS/EVENTS/TESTS: 1. November 2007 cardiac tamponade - hemorrhagic without clear etiology, a pericardial window was performed. 2. In light of abnormal EKG and effort dyspnea and abnormal stress testing underwent cardiac catheterization January 06, 2009 showing a basilar anterior LV aneurysm, left ventricular ejection fraction (LVEF) 50%, 75% proximal left anterior descending, 90% first diagonal and 90% large obtuse marginal branch stenosis. The right coronary was diffusely non critically disease. 3. January 10, 2009 underwent LV aneurysmectomy using a bovine patch, pericardial patch and a CABG times three - left internal mammary artery (WHITLOCK) to left anterior descending (LAD), saphenous vein graft (SVG) to first diagonal (D1) and SVG to obtuse marginal branch (OM1). 4. May 2009 Holter monitor showed sinus rhythm with left anterior hemiblock and right bundle branch block. Heart rate varying from 47-113 beats per minute averaging 64 bpm, rare isolated premature atrial contractions (PACs) and PVCs. No atrial fibrillation though atrial fibrillation was documented following his bypass surgery and subsequently. 5. February 25, 2017 his last stress study - pharmacological stress heart scan showed no low-level exercise or pharmacological induced chest pain or EKG change. There are occasional frequent isolated PACs and PVCs, left ventricle was upper limits of normal with anterolateral akinesis but other wall motion was hyperkinetic with LVEF of 59%. Moderate fixed anterolateral myocardial perfusion defect was present consistent with his known prior injury but unchanged from January 2015. 6. October 15, 2017 echocardiogram showed borderline left ventricle hypertrophy with antral lateral wall motion abnormality, yet preserved global resting systolic function. Borderline left atrial enlargement with impairment of LV diastolic function but normal estimated mean left atrial pressure mildly dilated right heart chambers with normal motion and moderate pulmonary hypertension but normal inferior vena cava (IVC) size and collapse against an elevated central venous pressure. There was moderate aortic valvular sclerosis with marginal stenosis and only trace insufficiency, slight mitral annular calcification and no pericardial effusion. 7. October 18, 2018 PA left lateral chest x-ray [facility] reportedly showed heart size upper limits of normal with the sternotomy wire sutures, hyperinflated lung churchill with chronic interstitial pulmonary fibrosis, no acute change from prior study April 20, 2015. CORONARY RISK FACTORS: Male gender advanced age. Longstanding smoking history. Currently smokes occasional cigar. Hypercholesterolemia since February 2009 but no history of diabetes, hypertension, symptomatic carotid vascular disease, obesity or family history of premature coronary disease. OTHER PAST MEDICAL HISTORY: 1. Smoking induced chronic obstructive pulmonary disease and chronic bronchitis and pulmonary fibrosis. 2. Prior hemorrhoidectomy 1999. 3. Previous endoscopy last study August 2011 benign. 4. Blepharoplasty December 2013. 5. Gastroesophageal reflux disease. 6. Degenerative joint disease with arthralgia. SYSTEMS REVIEW: Describes occasional fatigue with his dyspnea but no recent fever, chills or weight loss. Reduced visual acuity, wears glasses. No apparent hearing problems. Effort dyspnea as mentioned, but no orthopnea. Chronic sleep disturbance. No change in appetite, bowel habit or gastrointestinal (GI) bleeding. Nocturia times two nightly is chronic. Occasional leg cramps. Bruising tendency with his anticoagulant therapy. Other systems review is negative. All other system review is negative. MEDICATIONS: On admission his medications included: - atorvastatin 40 mg nightly - nitroglycerin 0.4 mg SL every minutes as needed for chest pain - Eliquis 5 mg twice a day - aspirin 81 mg daily - Combivent inhaler one inhalation four times a day - albuterol two puffs every 4 hours as needed dyspnea - omeprazole 20 mg daily - thiamine 100 mg by mouth nightly - multivitamin one tablet daily - omega 3 fish oil 1000 mg capsules two capsules daily ALLERGIES: None known. PHYSICAL EXAMINATION: Constitutional: Pleasant, bright elderly male well tanned laying comfortably with the head of the bed elevated 30 degrees. Vital signs: Heart rate 64 beats per minute and regular with frequent irregularities. Blood pressure 118/68 supine, 114/64 sitting with legs dependent and 122/62 standing. Respiratory rate 18, O2 saturation 91 on room air. Afebrile. Weight 184.5 pounds, height 68 inches, body mass index (BMI) 28. Eyes: Normal conjunctivae with senile arcus. No xanthelasma of his lids. Dentition dentures. Normal oral moisture. No cyanosis. Neck: Trachea midline. Thyroid not enlarged. Jugular veins. They are 2 cm above the sternal angle. Respiratory: Increased anteroposterior chest diameter with somewhat reduced chest expansion. Well-healed sternotomy incision. Few scattered inspiratory rales with prolongation of expiration and end-expiratory wheeze. Cardiovascular: Apical impulse not palpable. Distant heart sounds, unable to detect S2 splitting. No audible gallop or murmur. Normal carotid upstrokes and volume with no bruits. Upper extremity pulses and femoral pulses were symmetrical and normal, abdominal aorta not palpable. No bruits. Pedal pulses were symmetrically decreased. Extremities: No dependent edema or varicose veins. Has onychogryphosis of his fingernails but no clubbing, peripheral cyanosis or apparent splinter hemorrhages. GI: Soft, nontender abdomen with no hepatosplenomegaly. Normal bowel sounds. Rectal examination not indicated. Musculoskeletal: No apparent joint deformity. Gait in his room was normal. Normal-appearing muscular strength and tone. Normal spine curvature. Skin: No rashes, ecchymotic lesions, pallor or icterus. Well tanned. Neuro/psych: Bright, alert and oriented, gave a fair history. Eye, facial, extremity movements were symmetrical and normal. No involuntary movements. INVESTIGATIONS: Chest x-ray: PA and left lateral study October 18, [address] ratio measuring 18.8 and 33. Slightly unfolded thoracic aorta with slightly prominent proximal pulmonary vessels but no pulmonary venous congestion. Hyperinflated lung churchill with flattened diaphragms on the lateral projection. Increased interstitial markings in keeping with his known chronic lung disease. Degenerative changes of his thoracic spine. EKG: Tracing taken today in the emergency room was reviewed independently and shows sinus rhythm at 67 bpm. Isolated PVC. 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 Lateral Q-waves with primary ST/T-wave abnormalities but appearance unchanged from our last office tracing July 01, 2018. BLOOD WORK: Hemoglobin is 17.8 with normal white blood cell count and platelet count. PT/INR at 15/1.2 on his Eliquis. Electrolytes were normal with potassium of 4.5, calcium 9.1 with albumin 3.1. Random glucose 149, BUN 13, creatinine 0.9, magnesium level was normal at 2.1. Ultra sensitive TSH was normal at 1.6. Troponin I level was negative. Pro-BNP level measured 531 October 18, 2018. IMPRESSION/PLAN: 1. Syncopal spell: Although the precise etiology cannot be determined at this time the findings are consistent with a cardiovascular etiology. Has no orthostatic blood pressure drop, his chemistry confirms electrolyte balance with normal renal function. His hemoglobin is normal. Has well-documented bifascicular block, occasional isolated premature ventricular contractions (PVCs) and prior history of paroxysmal atrial fibrillation. In the light of these factors we have discussed with the patient and family it would be prudent to consider permanent dual-chamber pacemaker implantation and administration of amiodarone antiarrhythmic therapy. The patient was willing to consider this form of treatment rather than any invasive testing. 2. Bifascicular block - left anterior hemiblock and right bundle branch block: We have not documented high-grade arteriovenous (AV) block in the past but given the circumstances of his abrupt collapse in the absence of other potential explanation, I fear he may have suffered a high-grade AV block - Song-Lamar attack. We have recommended implantation of a permanent dual-chamber pacemaker under monitored local anesthesia. The indication, procedure and potential risks were discussed with the patient and his who appeared to understand and agree. We will arrange this tomorrow morning once he has been off his Eliquis for least 24 hours. 3. PVCs: These currently appear to be more frequent than in the past but have been isolated without complex forms. They are also asymptomatic. He currently is on property assessment monitor and blood work confirms electrolyte balance with normal thyroid stimulating hormone (TSH). EKG does not show any evidence of acute ischemic event and Troponin I is negative. 4. Paroxysmal atrial fibrillation: I documented in the past and could not be a consideration here, i.e. tachy-eleni syndrome with possible asystolic pause following a bout of atrial fibrillation. He is currently not on negative chronotropic therapy but in light of this along with his isolated PVCs we have discussed the introduction of impaired amiodarone following permanent dual-chamber pacemaker implant. 5. Coronary artery disease (belkofski vessel) remote anterior wall myocardial infarction / remote left ventricular (LV) aneurysmectomy and coronary artery bypass grafting (CABG) times three: Has been free of symptomatic myocardial ischemia. Last stress study was five years ago and showed only evidence of his prior infarction. No inducible ischemia. He has been reluctant to consider followup stress testing. Remains on protective atorvastatin, Eliquis and aspirin. He is not a candidate for beta dwight therapy with his advanced pulmonary disease and his current blood pressure would not likely tolerate lisinopril. Has sublingual nitroglycerin for use as necessary. 6. Smoking induced chronic pulmonary obstructive disease (COPD)/chronic bronchitis: Still limited primarily by this condition. Has obvious expiratory rhonchi on examination, remains on regular DuoNeb therapy with albuterol inhaler every four hours as needed. I have discussed the above opinions with the patient and his who appear understand and agree at this point. We will be following him closely with you for the time being. Permanent pacemaker implantation tomorrow prior to initiation of at least low-dose amiodarone antiarrhythmic therapy. I thank you for allowing us to participate in care of your patient. Best regards. Andi Salcedo MD [facility] cc: Estuardo Garay MD
[2018-11-06] MEDS: IPRATROPIUM 0.5MG/ALBUTEROL 2.5MG INH SOL UD 3ML (DUONEB)(J7620) INH SCH ×4 (07:12→20:05)
[2018-11-06 07:59] LABS: ALBUMIN 3.2 GM/DL (3.2-5.2); ALT/SGPT 35 U/L (12-78); BILIRUBIN,TOTAL 0.9 MG/DL (0.2-1.0); BLOOD UREA NITROGEN 13 MG/DL (7-18); CARBON DIOXIDE LEVEL 28 MEQ/L (21-32); CHLORIDE LEVEL 101 MEQ/L (98-107); CREATININE FOR GFR 0.92 MG/DL (0.70-1.30); GLOMERULAR FILTRATION RATE > 60.0 (>35); GLUCOSE, FASTING 118 MG/DL (70-100); MAGNESIUM LEVEL 2.1 MG/DL (1.8-2.4); POTASSIUM SERUM 4.5 MEQ/L (3.5-5.1); SODIUM LEVEL 135 MEQ/L (136-145); TOTAL PROTEIN 7.1 GM/DL (6.4-8.2)
[2018-11-06 08:11] LABS: HEMATOCRIT 57.2 % (42.0-52.0); HEMOGLOBIN 19.1 g/dl (13.5-17.5); MEAN CORPUSCULAR HGB CONC 33.4 g/dl (32.0-36.5); PLATELET COUNT, AUTOMATED 108 10^3/uL (150-450); RED BLOOD COUNT 5.45 10^6/uL (4.30-6.10); WHITE BLOOD COUNT 6.9 10^3/uL (4.0-10.0)
[2018-11-06] MEDS: MULTIVITAMINS/MINERALS THERAP 1 TAB PO SCH (08:29)
[2018-11-06] MEDS: FOLIC ACID 1 MG TAB PO SCH (08:29)
[2018-11-06] MEDS: OMEGA-3 1000MG CAPSULE PO SCH (08:30)
[2018-11-06] MEDS: ASPIRIN 81 MG ENTERIC TAB PO SCH (08:46)
[2018-11-06] MEDS: APIXABAN 5 MG TAB (ELIQUIS) PO SCH (08:46)
[2018-11-06] MEDS ORDERED: LIDOCAINE 1% MDV INJ 50 ML VIAL As Ordered ONE (12:22)
--- NOTE | 2018-11-06 13:26 | IPNPDOC ---
Text Note Date of Service The patient was seen on 11/06/18. NOTE Subjective No any acute events overnight. In the morning patient alert, awake, oriented patient. Telemetry showed some PVCs overnight with sinus rhythm. Patient denies fever, chills, nausea, vomiting, chest pain, palpitations, diarrhea or dysuria Objective General : NAD HEENT : PERRLA, EOMI Neck: Supple CV: S1-S2, no gallop, no murmur Abdomen: Nontender, nondistended, bowel sounds present Extremities: No edema, cyanosis of lower extremities Assessment and plan Patient is 83 years old male with past history advanced COPD, atrial fibrillation on decrease, bypass cardiac surgery, chronic right ventricular and left hemiblock presented to Hospital after syncope. Head CAT scan was negative for bleeding. No electrolytes abnormalities seen. Dr Salcedo consulted patient an d recommended dual-chamber pacemaker placement. Syncope Most likely cardiac etiology. Patient has a chronic right ventricular and left hemiblock on EKG Dual-chamber pacemaker placement planned today Echo was done yesterday shows normal left ventricular size with moderately increased left ventricular wall thickness. Ejection fraction 40-45% Atrial fibrillation We will hold anticoagulation due to upcoming procedure Heart rate is under control. Continue home cardiac meds Due to advanced COPD the patient is not candidate for beta blockers Coronary artery diseases Patient denies any chest pain or palpitations Continue home cardioprotective medication Nicotine abuse Nicotine patch offered Extensive counseling provided COPD Not in acute exacerbation Continue home inhalers VS,Fishbone, I+O VS, Fishbone, I+O Laboratory Tests 11/06/18 05:36 Red Blood Count 5.45, Mean Corpuscular Volume 105.0 H, Mean Corpuscular Hemoglobin 35.0 H, Mean Corpuscular Hemoglobin Concent 33.4, Red Cell Distribution Width 12.7, Calcium Level 9.0, Aspartate Amino Transf (AST/SGOT) 22, Alanine Aminotransferase (ALT/SGPT) 35, Alkaline Phosphatase 55, Total Bilirubin 0.9, Total Protein 7.1, Albumin 3.2 Vital Signs Date Time Temp Pulse Resp B/P (MAP) Pulse Ox O2 Delivery O2 Flow Rate FiO2 11/06/18 06:17 71 133/80 (97) 73 129/109 (116) 80 120/71 (87) 11/06/18 06:00 98.1 18 92 11/05/18 15:20 Room Air I&O- Last 24 Hours up to 6 AM 11/06/18 05:59 Intake Total 480 ml Output Total 400 ml Balance 80 ml STEPHANIE DAS DO Nov 06, 2018 13:26
[2018-11-06] MEDS ORDERED: ceFAZolin 2 GM/D5W 50 ML IV BAG (J0690 PER 500MG) As Ordered ONE (14:11)
[2018-11-06] MEDS ORDERED: fentaNYL 100 MCG/2 ML INJECTION (J3010) As Ordered ONE (14:33)
[2018-11-06] MEDS ORDERED: ONDANSETRON 4MG/2ML VIAL (J2405) As Ordered ONE (14:33)
[2018-11-06] MEDS ORDERED: LIDOCAINE 2% INJ 100 MG/5 ML SDV (FOR ANES.) As Ordered ONE (14:33)
[2018-11-06] MEDS ORDERED: propofoL 200 MG/20 ML VIAL As Ordered ONE (14:33)
[2018-11-06] MEDS ORDERED: LR 1,000 ML IV SCH (15:45)
[2018-11-06] MEDS ORDERED: ONDANSETRON 4MG/2ML VIAL (J2405) IV PRN (15:45)
[2018-11-06] MEDS ORDERED: fentaNYL 100 MCG/2 ML INJECTION (J3010) IV PRN (15:45)
[2018-11-06] MEDS ORDERED: NORCO, ANEXSIA 5/325MG TABLET (HYDROcodone/ACETAMINOPHEN) PO PRN (15:45)
--- NOTE | 2018-11-06 15:50 | RO ---
DATE OF PROCEDURE: 11/06/2018 TITLE OF PROCEDURE: Implantation of permanent dual-chamber pacemaker. IMPLANTING FIRE WATCHER: Dr. Andi Salcedo ANESTHESIOLOGIST: Dr. Biggs PREOPERATIVE DIAGNOSES: 1. Recurrent syncope/bifascicular block. 2. Paroxysmal atrial fibrillation. 3. Frequent PVCs. POSTOPERATIVE DIAGNOSIS 1. Recurrent syncope/bifascicular block. 2. Paroxysmal atrial fibrillation. 3. Frequent premature PVCs. TYPE OF ANESTHESIA: Monitored local anesthesia. DESCRIPTION OF PROCEDURE: We explained to the patient we are not certain of the specific etiology of his recurrent syncope but that it sounds certainly cardiovascular and not related to volume depletion and likely arrhythmia based intermittent high-grade atrioventricular (AV) block - Song Lamar attacks. With his arrhythmias our plan is to introduce amiodarone postoperatively. Following informed consent with the patient in the fasting state having received Ancef 2 grams IV premedication, he was taken to the operating theater. Numerous skin electrodes were applied to facilitate continuous electrocardiographic monitoring. The left subclavian region was prepped and draped in usual fashion and the skin was infiltrated with 1% Xylocaine. The left axillary vein was catheterized using the micropuncture technique. A 5 cm linear incision was then made several centimeters below and parallel to the left clavicle. Dissection was carried down to the level of the pectoralis fascia and a pocket was fashioned below the level of the incision line. Two bipolar screw-in active fixation steroid eluting pacing leads were then positioned to the right ventricular apex and right atrial appendage under fluoroscopic control. The right ventricular lead ([employer] model number [id number], serial number [id number]) measurements were: Stimulation threshold 0.5, V/ 0.4 ms/impedance 756 ohms. The capital R wave amplitude measured 13 mV. The atrial lead ([employer] model number [id number]/[id number], serial number [id number]) measurements were: Stimulation threshold 1.1, V/0.4 ms/impedance 497 ohms. The capital P wave amplitude measured 2.0 mV. These leads were secured in position with sleeves sutured at their insertion site. They were then connected to a dual-chamber pulse generator ([employer] model number [id number], serial number [id number]) MRI compatible - an appropriate DDD pacing was documented. The device was placed in the pocket and secured in position with a suture through the upper right-hand corner of the epoxy header. The subcutaneous tissues were approximated using a running chromic suture and the skin was closed using ajay. Dry dressing was applied. The patient was returned to recovery room in good condition. No apparent complications. Estimated blood loss 10 mL. At this point, we plan to return him to telemetry and will be starting amiodarone antiarrhythmic therapy. His postoperative portable upright chest x-ray showed good lead position with no pneumothorax. His EKG confirmed appropriate pacer function.
--- NOTE | 2018-11-06 16:11 | REP ---
Portable chest x-ray: Single view. History: Post pacemaker implant. Comparison study: October 18, 2018. Findings: A bipolar pacemaker is seen in the right heart via the left side. Skin ajay are noted adjacent to the power plant. There is no evidence of pneumothorax or hydrothorax. Heart size is unchanged. Bibasilar interstitial fibrosis pattern is seen in the lung churchill. Impression: Left-sided transvenous pacemaker in place. No complication is identified. Electronically Signed by Robert Ramirez MD 11/06/2018 04:03 P
[2018-11-06] MEDS ORDERED: SLF 3 ML SYR IV PRN (18:45)
[2018-11-06] MEDS: THIAMINE 100 MG TAB PO SCH (21:02)
[2018-11-06] MEDS: ATORVASTATIN 20 MG TAB PO SCH (21:02)
[2018-11-06] MEDS: AMIODARONE 200 MG TAB (PACERONE) PO SCH (21:02)
[2018-11-06] MEDS: ceFAZolin SOD 1 GM in D5W MINI-BAG PLUS 50 ML IV SCH (22:54)
[2018-11-06] MEDS: SLF 3 ML SYR IV SCH (22:54)
[2018-11-07] VITALS (7 sets, daily range): BP systolic 100–115; BP diastolic 54–68
[2018-11-07 05:40] LABS: HEMATOCRIT 53.8 % (42.0-52.0); HEMOGLOBIN 17.6 g/dl (13.5-17.5); MEAN CORPUSCULAR HEMOGLOBIN 34.4 pg (27.0-33.0); MEAN CORPUSCULAR HGB CONC 32.7 g/dl (32.0-36.5); MEAN CORPUSCULAR VOLUME 105.1 fl (80.0-96.0); RED BLOOD COUNT 5.12 10^6/uL (4.30-6.10); WHITE BLOOD COUNT 8.7 10^3/uL (4.0-10.0)
[2018-11-07] MEDS: SLF 3 ML SYR IV SCH ×3 (05:55→22:19)
[2018-11-07] MEDS: ceFAZolin SOD 1 GM in D5W MINI-BAG PLUS 50 ML IV SCH ×2 (05:55→13:55)
[2018-11-07 05:56] LABS: PLATELET COUNT, AUTOMATED 88 10^3/uL (150-450)
[2018-11-07 05:57] LABS: BLOOD UREA NITROGEN 13 MG/DL (7-18); CALCIUM LEVEL 8.9 MG/DL (8.8-10.2); CARBON DIOXIDE LEVEL 29 MEQ/L (21-32); CHLORIDE LEVEL 102 MEQ/L (98-107); CREATININE FOR GFR 0.86 MG/DL (0.70-1.30); GLOMERULAR FILTRATION RATE > 60.0 (>35); GLUCOSE, FASTING 114 MG/DL (70-100); PHOSPHORUS LEVEL 3.7 MG/DL (2.5-4.9); POTASSIUM SERUM 4.6 MEQ/L (3.5-5.1); SODIUM LEVEL 135 MEQ/L (136-145)
[2018-11-07] MEDS: IPRATROPIUM 0.5MG/ALBUTEROL 2.5MG INH SOL UD 3ML (DUONEB)(J7620) INH SCH ×4 (07:23→19:52)
[2018-11-07] MEDS: OMEGA-3 1000MG CAPSULE PO SCH (09:00)
[2018-11-07] MEDS: AMIODARONE 200 MG TAB (PACERONE) PO SCH (09:23)
[2018-11-07] MEDS: ASPIRIN 81 MG ENTERIC TAB PO SCH (09:23)
[2018-11-07] MEDS: MULTIVITAMINS/MINERALS THERAP 1 TAB PO SCH (09:23)
[2018-11-07] MEDS: FOLIC ACID 1 MG TAB PO SCH (09:23)
--- NOTE | 2018-11-07 09:40 | REP ---
REASON: Status post pacemaker. COMPARISON: 11/06/2018 at 1518. There is a dual-chamber bipolar pacemaker device status quo. The heart is borderline. Basilar fibrotic changes are noted status quo. There are no acute patchy parenchymal opacities or pleural effusions. External device artifact obscures the left CP angle. Mild chronic changes are seen involving the imaged spine. IMPRESSION: Pacemaker and previous median sternotomy status quo. Basilar fibrotic change status quo. No evidence of acute cardiopulmonary disease. Electronically Signed by Sloan Almaguer DO 11/07/2018 02:10 P
--- NOTE | 2018-11-07 14:15 | IPNPDOC ---
Text Note Date of Service The patient was seen on 11/07/18. NOTE Subjective No any acute events overnight. In the morning patient alert, awake, oriented patient. Patient tolerates procedure well. Telemetry showed some PVCs overnight with sinus rhythm. Patient denies fever, chills, nausea, vomiting, chest pain, palpitations, diarrhea or dysuria Objective General : NAD HEENT : PERRLA, EOMI Neck: Supple Chest: Pacemaker in place, dressing intact CV: S1-S2, no gallop, no murmur Abdomen: Nontender, nondistended, bowel sounds present Extremities: No edema, cyanosis of lower extremities Assessment and plan Patient is 83 years old male with past history advanced COPD, atrial fibrillation on decrease, bypass cardiac surgery, chronic right ventricular and left hemiblock presented to Hospital after syncope. Head CAT scan was negative for bleeding. No electrolytes abnormalities seen. Dr Salcedo consulted patient and recommended dual-chamber pacemaker placement. On 11/06/18 dual-chamber pacemaker was placed, postoperative without any complications. Therapy with amiodarone initiated Syncope Most likely cardiac etiology. Patient has a chronic right ventricular and left hemiblock on EKG Dual-chamber pacemaker placement placed Echo was done shows normal left ventricular size with moderately increased left ventricular wall thickness. Ejection fraction 40-45% Atrial fibrillation Resumed anticoagulation Heart rate is under control. Amiodarone 200 mg twice a day started Due to advanced COPD the patient is not candidate for beta blockers Coronary artery diseases Patient denies any chest pain or palpitations Continue home cardioprotective medication Nicotine abuse Nicotine patch offered Extensive counseling provided COPD Not in acute exacerbation Continue home inhalers Anticipated discharge tomorrow VS,Ektae, I+O VS, Fishbone, I+O Laboratory Tests 11/07/18 05:15 Red Blood Count 5.12, Mean Corpuscular Volume 105.1 H, Mean Corpuscular Hemoglobin 34.4 H, Mean Corpuscular Hemoglobin Concent 32.7, Red Cell Distribution Width 12.7, Calcium Level 8.9 Vital Signs Date Time Temp Pulse Resp B/P (MAP) Pulse Ox O2 Delivery O2 Flow Rate FiO2 11/07/18 12:00 97.7 78 17 115/66 (82) 90 11/07/18 04:15 2.0 11/05/18 15:20 Room Air I&O- Last 24 Hours up to 6 AM 11/07/18 06:00 Intake Total 1300 ml Output Total 1025 ml Balance 275 ml STEPHANIE DAS DO Nov 07, 2018 14:15
[2018-11-07] MEDS: THIAMINE 100 MG TAB PO SCH (20:45)
[2018-11-07] MEDS: ATORVASTATIN 20 MG TAB PO SCH (20:45)
[2018-11-08] VITALS: BP 125/62
[2018-11-08 04:00] VITALS: BP 138/62
[2018-11-08 06:01] LABS: HEMATOCRIT 52.4 % (42.0-52.0); HEMOGLOBIN 17.5 g/dl (13.5-17.5); MEAN CORPUSCULAR HEMOGLOBIN 35.1 pg (27.0-33.0); MEAN CORPUSCULAR HGB CONC 33.4 g/dl (32.0-36.5); RED BLOOD COUNT 4.99 10^6/uL (4.30-6.10); WHITE BLOOD COUNT 10.2 10^3/uL (4.0-10.0)
[2018-11-08 06:03] LABS: PLATELET COUNT, AUTOMATED 81 10^3/uL (150-450)
[2018-11-08] MEDS: SLF 3 ML SYR IV SCH (06:09)
[2018-11-08] MEDS: IPRATROPIUM 0.5MG/ALBUTEROL 2.5MG INH SOL UD 3ML (DUONEB)(J7620) INH SCH (07:52)
[2018-11-08 08:00] VITALS: BP 102/57
[2018-11-08] MEDS ORDERED: FOLI1TAB11 PO (08:38)
[2018-11-08] MEDS ORDERED: AMIO200T PO (08:38)
[2018-11-08] MEDS: ASPIRIN 81 MG ENTERIC TAB PO SCH (08:43)
[2018-11-08] MEDS: FOLIC ACID 1 MG TAB PO SCH (08:43)
[2018-11-08] MEDS: MULTIVITAMINS/MINERALS THERAP 1 TAB PO SCH (08:44)
[2018-11-08] MEDS ORDERED: AMIODARONE 200 MG TAB (PACERONE) PO SCH (09:00)
[2018-11-08] MEDS ORDERED: APIXABAN 5 MG TAB (ELIQUIS) PO SCH (09:00)
--- NOTE | 2018-11-08 16:00 | ECGEPIP ---
[facility] Test Date: 2018-11-06 Pat Name: ALVIN BAILEY Department: Room: [place] [address] Gender: Male Mogul Operator: EVE : 1935 Requested By: Alvin Salcedo Order Number: [id number] Reading MD: Jules Liz Measurements Intervals [place] Rate: 72 P: 6 NV: 162 QRS: -59 QRSD: 161 T: 86 QT: 425 QTc: 467 Interpretive Statements ELECTRONIC ATRIAL PACEMAKER RIGHT BUNDLE BRANCH BLOCK LEFT ANTERIOR FASCICULAR BLOCK COMPARED TO THE LAST 2 TRACINGS IN THE SYSTEM, ATRIAL PACEMAKER ACTIVITY WAS NOT SEEN Electronically Signed on 11-08-2018 15:59:49 EDT by Jules Liz
--- NOTE | 2018-11-08 16:02 | ECGEPIP ---
[facility] Test Date: 2018-11-07 Pat Name: ALVIN BAILEY Department: Room: [place] [address] Gender: Male Php Software Engineer: IRLANDA : 1935 Requested By: Alvin Salcedo Order Number: [id number] Reading MD: Jules Liz Measurements Intervals [place] Rate: 74 P: 66 VA: 154 QRS: -70 QRSD: 168 T: 84 QT: 407 QTc: 453 Interpretive Statements ELECTRONIC ATRIAL PACEMAKER RIGHT BUNDLE BRANCH BLOCK LEFT ANTERIOR FASCICULAR BLOCK MOST RECENT TRACING ON 11/06/2018 AT 15:29, NO SIGNIFICANT CHANGES Electronically Signed on 11-08-2018 16:02:11 EDT by Jules Liz
--- NOTE | 2018-11-21 18:42 | DS.PDOC ---
Discharge Summary General Date of Admission Nov 06, 2018 at 16:03 Date of Discharge 11/08/18 Attending Physician: STEPHANIE DAS DO Discharge Summary PROCEDURES PERFORMED DURING STAY: Dual-chamber pacemaker placement ADMITTING DIAGNOSES: Syncope Atrial fibrillation Coronary artery diseases Nicotine abuse COPD DISCHARGE DIAGNOSES: Syncope/ bifascicular block. Atrial fibrillation Coronary artery diseases Nicotine abuse COPD s/p Dual-chamber pacemaker placement COMPLICATIONS/CHIEF COMPLAINT: Afib,Syncope. 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 He was last seen in our office June 2018 and at that point was chiefly limited by his chronic smoking induced obstructive lung disease, denying any other cardiovascular complaints including any lightheadedness or dizziness. He was compliant with his combination medical therapy including an anticoagulant and his EKG showed sinus rhythm at 66 bpm with left anterior hemiblock and right bundle branch block and small lateral Q-waves. Repolarization abnormalities were not changed from December 2017. October 18, 2018 presented to the emergency room with an exacerbation of his chronic pulmonary obstructive disease (COPD). He apparently responded well to intravenous (IV) steroid therapy with bronchodilators. Since his discharge October 21, 2018, he had resumed much of his customary activities including cutting his grass and walking on his treadmill at a slow speed for up to 15 minutes. Dyspnea remained his chief ever limiting symptom. Two days ago 70 hours after having cut the lawn just prior to eating dinner at the p.m. he was walking from the kitchen toward the bathroom when he collapsed. His was not in the room heard the crash and came to his attention immediately. By the time she arrived he was awake on the floor but appeared somewhat dazed. There was no seizure activity, incontinence or significant injury. There was no lateralizing neurological event. An ambulance was summoned and on the monitor it showed his conduction problems with occasional frequent irregularities but his blood pressure was fine. His respiratory rate and oxygen levels were fine. He was still urged to come to the hospital for evaluation but refused. The next day his contacted his primary physician and he was made aware of his fall. Knowing he was receiving Eliquis oral anticoagulant therapy he insisted that the patient to present to the emergency room should he develop a headache or neurological symptoms such as change in level awareness. This morning he did wake up with a headache and he was persuaded to seek evaluation. Upon his arrival in the emergency room vital signs recorded. He was alert and bright and orientated; heart rate was 76 beats per minute, blood pressure 139/69 with respiratory rate 16, O2 saturation 91% on room air and he was afebrile. Because of his right-sided headache a CT scan was performed showing a minimal thickening of the anterior right frontal scalp but no fracture, intracranial hemorrhage or midline shift, evidence of microvascular ischemic disease with some intracranial vascular calcifications but no significant abnormality. EKG showed sinus rhythm at 67 bpm with occasional premature ventricular contractions (PVCs), left anterior hemiblock and right bundle branch block. Blood work did not show any significant abnormality. In light of his syncopal spell and bifascicular block his admission was arranged to a telemetry unit for observation. Cardiology consultation was placed. Currently as mentioned dyspnea is his ultimate ever limiting symptom and apparently since his discharge in September he believes his effort tolerance was back to baseline. Has been free of any effort related chest, jaw or arm discomfort, apparently has been sleeping with intermittent difficulties as before with some daytime sleepiness, has been unaware of his heart action and since his event has been free of any lightheadedness. Denies any lateralizing neurological symptoms such as amaurosis fugax, numbness or weakness in an arm or leg or difficulty speaking. Claims to have been compliant with his medical therapy. HOSPITAL COURSE: During hospital stay patient was found to have chronic right ventricular and left hemiblock on EKG, buffet waiter/waitress recommended biventricular pacemaker placement. Device was placed successfully, patient received prophyl axis with antibiotic therapy. Heart rate was normalized, during the hospital stay patient did not have any syncope. Telemetry showed paced sinus rhythm DISCHARGE MEDICATIONS: Please see below. ALLERGIES: Please see below. PHYSICAL EXAMINATION ON DISCHARGE: VITAL SIGNS: Please see below. General : NAD HEENT : PERRLA, EOMI Neck: Supple Chest: Pacemaker in place, dressing intact CV: S1-S2, no gallop, no murmur Abdomen: Nontender, nondistended, bowel sounds present Extremities: No edema, cyanosis of lower extremities LABORATORY DATA: Please see below. IMAGING: PROCEDURE: CT scan of the head was performed without IV contrast in the axial plane. INDICATION: Trauma. COMPARISON: CT head of 01/07/2008. FINDINGS: There is minimal thickening of the anterior right frontal scalp. There is no calvarial fracture. There is no acute intracranial hemorrhage, midline shift or basal cisterns effacement. There is similar asymmetry of the frontal horns of the lateral ventricles, right smaller than left. There is no hydrocephalus. There are periventricular hypodensities which are nonspecific but suggestive of microvascular ischemic disease. Note is made intracranial vascular calcifications. The orbits are intact. The visualized paranasal sinuses and mastoid air cells are grossly aerated. IMPRESSION: No acute intracranial abnormality. PROGNOSIS: Favorable ACTIVITY: As tolerated. DIET: Cardiac DISCHARGE PLAN: Home DISPOSITION: 01 Home, Self-Care. DISCHARGE INSTRUCTIONS: 1. Stop smoking tobacco, stopped excessively drinking alcohol ITEMS TO FOLLOWUP ON ON OUTPATIENT: 1. Follow-up with buffet waiter/waitress and PCP in one week DISCHARGE CONDITION: Stable. TIME SPENT ON DISCHARGE: Greater than 20 minutes. Discharge Medications Scheduled Amiodarone HCl (Amiodarone HCl) 200 Mg Tablet, 200 MG PO DAILY Apixaban (Eliquis) 5 Mg Tablet, 5 MG PO BID, (Reported) Aspirin (Aspir 81) 81 Mg Tablet.dr, 81 MG PO DAILY, (Reported) Atorvastatin Calcium (Atorvastatin Calcium) 40 Mg Tablet, 40 MG PO QHS, (Reported) Folic Acid (Folic Acid) 1 Mg Tablet, 1 MG PO DAILY Ipratropium/Albuterol Sulfate (Combivent Respimat 20-100 Mcg) 4 Gm Mist.inhal, 1 PUFF INH QID, (Reported) Multivitamin (Multivitamins) 1 Each Capsule, 1 CAP PO QHS, (Reported) Omeprazole (Omeprazole) 20 Mg Capsule.dr, 20 MG PO DAILY, (Reported) Thiamine Hcl (Vitamin B-1) 100 Mg Tablet, 100 MG PO QHS, (Reported) Scheduled PRN Acetaminophen (Acetaminophen) 500 Mg Tablet, 500 MG PO Q6H PRN for PAIN, (Reported) Albuterol Sulfate (Proair Hfa) 8.5 Gm Hfa.aer.ad, 2 PUFF INH Q4H PRN for SOB/WHEEZING, (Reported) Nitroglycerin (Nitroglycerin) 0.4 Mg Tab.subl, 0.4 MG SL NITRO PRN for CHEST PA IN, (Reported) Allergies Coded Allergies: TAPE (Unverified Adverse Reaction, Intermediate, CAUSED REDNESS AND SKIN TEARS, 10/18/18) STEPHANIE DAS DO Nov 21, 2018 18:42
== END 2018-11-08 09:46 | disposition home or self-care (01) | DRG 244 ==
LOC: M ED 09:25 → M ED INP 09:26 → M MSPAV 16:12 → M PCU 11-06 14:54 → OBSVTOIN 11-06 16:03
PROVIDERS: ADMIT Internal Medicine; ATTEND Internal Medicine
PROC: 0JH636Z Insertion of Pacemaker, Dual Chamber into Chest Subcutaneous Tissue and Fascia, Percutaneous Approach (ICD-10-PCS; 2018-11-06)
PROC: 02HK3JZ Insertion of Pacemaker Lead into Right Ventricle, Percutaneous Approach (ICD-10-PCS; 2018-11-06)
PROC: 02H63JZ Insertion of Pacemaker Lead into Right Atrium, Percutaneous Approach (ICD-10-PCS; principal; 2018-11-06 14:00)
DX: I45.2 Bifascicular block (principal); I48.0 Paroxysmal atrial fibrillation; J44.9 Chronic obstructive pulmonary disease, unspecified; Z95.1 Presence of aortocoronary bypass graft; Z79.82 Long term (current) use of aspirin; Z79.899 Other long term (current) drug therapy; Z87.891 Personal history of nicotine dependence; I10 Essential (primary) hypertension; K21.9 Gastro-esophageal reflux disease without esophagitis; F10.10 Alcohol abuse, uncomplicated; I25.2 Old myocardial infarction; I44.4 Left anterior fascicular block

== ENCOUNTER 2018-11-20 21:08 | Emergency (ER) | payer MEDICARE ==
[~2018-11-20] VITALS: Ht 172.7 cm; Wt 81.8 kg
[~2018-11-20 21:08] MED LIST changes: +AMIO200T PO; +ASPI81TA85 PO; +FOLI1TAB11 PO; +OMEG10002 PO; +PROAAER10 INH
--- NOTE | 2018-11-20 22:12 | REPVR ---
EXAM: CT Head Without Contrast EXAM DATE/TIME: 11/20/2018 9:52 PM CLINICAL HISTORY: 83 years old, male; Altered mental status/memory loss; Confusion or disorientation TECHNIQUE: Imaging protocol: Computed tomography of the head without contrast. Radiation optimization: All CT scans at this facility use at least one of these dose optimization techniques: automated exposure control; mA and/or kV adjustment per patient size (includes targeted exams where dose is matched to clinical indication); or iterative reconstruction. COMPARISON: CT Head without contrast 11/05/2018 9:51 AM FINDINGS: Brain: No acute intracranial hemorrhage or mass effect. No discrete geographic area of hypoattenuation to suggest large vessel territorial infarct identified at this time. Mild to moderately advanced generalized involutional and deep white matter microvascular ischemic changes appear grossly stable when compared to prior examination. Vascular calcifications involving the cavernous carotid arteries. Ventricles: Stable asymmetry of the frontal horns of the lateral ventricles. No ventriculomegaly. Bones/joints: No acute fracture. Sinuses: No fluid levels. Mastoid air cells: Visualized mastoid air cells are well aerated. No mastoid effusion. Soft tissues: Unremarkable. IMPRESSION: No acute intracranial abnormality. Chronic appearing changes, as above, are relatively unchanged when compared to the recent prior study. Electronically signed by: Paul Franco On 11/20/2018 22:12:29 PM
[2018-11-20 22:50] LABS: BASO % 0.4 % (0.0-1.0); EOS # 0.3 10^3/uL (0.0-0.50); EOS % 3.6 % (0.0-3.0); HEMATOCRIT 53.4 % (42.0-52.0); HEMOGLOBIN 17.8 g/dl (13.5-17.5); LYMPH # 3.1 10^3/uL (1.5-4.5); LYMPH % 42.6 % (24.0-44.0); MEAN CORPUSCULAR HGB CONC 33.3 g/dl (32.0-36.5); MEAN CORPUSCULAR VOLUME 104.9 fl (80.0-96.0); MONO # 0.7 10^3/uL (0.0-0.8); MONO % 9.1 % (0.0-5.0); NEUTROPHILS # 3.2 10^3/uL (1.8-7.7); PLATELET COUNT, AUTOMATED 141 10^3/uL (150-450); RED BLOOD COUNT 5.09 10^6/uL (4.30-6.10); WHITE BLOOD COUNT 7.2 10^3/uL (4.0-10.0)
[2018-11-20 23:16] LABS: AMPHETAMINES LEVEL URINE NEGATIVE (NEGATIVE); BARBITURATES URINE NEGATIVE (NEGATIVE); BENZODIAZEPINES URINE NEGATIVE (NEGATIVE); CANNABINOIDS URINE NEGATIVE (NEGATIVE); COCAINE METABOLITE URINE NEGATIVE (NEGATIVE); METHADONE URINE NEGATIVE (NEGATIVE); OPIATES URINE NEGATIVE (NEGATIVE); PHENCYCLIDINE URINE NEGATIVE (NEGATIVE)
[2018-11-20 23:27] LABS: ALBUMIN 3.7 GM/DL (3.2-5.2); ALT/SGPT 30 U/L (12-78); BILIRUBIN,DIRECT 0.1 MG/DL (0.0-0.2); BILIRUBIN,TOTAL 0.4 MG/DL (0.2-1.0); BLOOD UREA NITROGEN 12 MG/DL (7-18); CALCIUM LEVEL 9.1 MG/DL (8.8-10.2); CARBON DIOXIDE LEVEL 34 MEQ/L (21-32); CHLORIDE LEVEL 103 MEQ/L (98-107); CK-MB VALUE MASS 3.9 NG/ML (<3.6); CPK CREATINE PHOSPHOKINASE 130 U/L (39-308); CREATININE FOR GFR 0.86 MG/DL (0.70-1.30); ETHYL ALCOHOL (ETHANOL) 0.259 % (0.000-0.010); GLOMERULAR FILTRATION RATE > 60.0 (>35); GLUCOSE, FASTING 114 MG/DL (70-100); POTASSIUM SERUM 4.2 MEQ/L (3.5-5.1); SODIUM LEVEL 142 MEQ/L (136-145); TOTAL PROTEIN 7.1 GM/DL (6.4-8.2); TROPONIN I < 0.02 NG/ML (< 0.10)
[2018-11-21 00:05] LABS: OSMOLALITY SERUM 352 MOSM/KG (280-301)
[2018-11-21] MEDS ORDERED: NS 1,000 ML IV ONE (00:30)
[2018-11-21 01:43] VITALS: BP 121/75
--- NOTE | 2018-11-21 08:00 | REP ---
Portable chest, two AP upright views: Comparison is 2018. Of the chest with wall surgical ajay adjacent to the pacemaker power pack and the removed. The there is a dual-chamber pacemaker entering from left. There is no pneumothorax. There are no focal infiltrates. Lung churchill are hyperinflated, unchanged. There is crowding of the lung, 1 HU in the lower lung zones, unchanged. These findings are compatible with COPD. Sternotomy wires are unchanged. Cardiac size is upper normal, unchanged. Impression: No pneumothorax or other acute cardiopulmonary finding. Chronic stable changes. The surgical skin ajay adjacent to the pacemaker power pack been removed. Electronically Signed by Jorje Rodriguez MD 11/21/2018 07:51 A
--- NOTE | 2018-11-21 08:18 | ECGEPIP ---
[facility] [place] - ED Test Date: 2018-11-20 Pat Name: ALVIN BAILEY Department: Room: - Gender: Male Import/Export Administrator: KCJ : 1935 Requested By: AVIVA Sanders Order Number: [id number] Reading MD: Rosas Calhoun Measurements Intervals [place] Rate: 69 P: 118 WI: 197 QRS: -60 QRSD: 171 T: 85 QT: 459 QTc: 495 Interpretive Statements ELECTRONIC ATRIAL PACEMAKER RIGHT BUNDLE BRANCH BLOCK LEFT ANTERIOR FASCICULAR BLOCK SIMILAR TO 11/07/18 Electronically Signed on 11-21-2018 8:18:27 EDT by Rosas Calhoun
== END 2018-11-21 01:45 | disposition home or self-care (01) ==
LOC: M ED 21:08
DX: F10.120 Alcohol abuse with intoxication, uncomplicated (principal); I48.91 Unspecified atrial fibrillation; I11.0 Hypertensive heart disease with heart failure; I50.9 Heart failure, unspecified; J44.9 Chronic obstructive pulmonary disease, unspecified; K21.9 Gastro-esophageal reflux disease without esophagitis; Z95.1 Presence of aortocoronary bypass graft; Z87.891 Personal history of nicotine dependence; Z95.0 Presence of cardiac pacemaker; Z91.048 Other nonmedicinal substance allergy status; Z79.899 Other long term (current) drug therapy; Z79.01 Long term (current) use of anticoagulants; Z79.82 Long term (current) use of aspirin
CPT/HCPCS: 70450; 71045; 80048; 80076; 80307; 81001; 82140; 82550; 82553; 83605; 83930; 84443; 84484; 85025; 87040; 87077; 93005; 93041; 94760; 96360; 99285; G0480

== ENCOUNTER 2019-05-16 18:52 | Inpatient (IN) | payer MEDICARE ==
[~2019-05-16] VITALS: Ht 170.2 cm; Wt 80.5 kg
[2019-05-16] MEDS ORDERED: IPRATROPIUM 0.5MG/ALBUTEROL 2.5MG INH SOL UD 3ML (DUONEB)(J7620) NEB PRN (19:45)
[2019-05-16] MEDS ORDERED: methylPREDNISolone INJ 125 MG/2 ML VIAL (J2930) IV ONE (19:45)
[2019-05-16 20:03] LABS: BASO % 0.3 % (0.0-1.0); EOS % 0.2 % (0.0-3.0); HEMATOCRIT 47.2 % (42.0-52.0); HEMOGLOBIN 15.3 g/dl (13.5-17.5); LYMPH # 1.3 10^3/uL (1.5-5.0); LYMPH % 22.1 % (24.0-44.0); MEAN CORPUSCULAR HEMOGLOBIN 31.8 pg (27.0-33.0); MEAN CORPUSCULAR HGB CONC 32.4 g/dl (32.0-36.5); MEAN CORPUSCULAR VOLUME 98.1 fl (80.0-96.0); MONO # 0.5 10^3/uL (0.0-0.8); MONO % 8.8 % (0.0-5.0); NEUTROPHILS # 4.1 10^3/uL (1.5-8.5); NEUTROPHILS % 68.3 % (36.0-66.0); PLATELET COUNT, AUTOMATED 110 10^3/uL (150-450); RED BLOOD COUNT 4.81 10^6/uL (4.30-6.10)
[2019-05-16 20:20] LABS: BLOOD UREA NITROGEN 18 MG/DL (7-18); CALCIUM LEVEL 8.5 MG/DL (8.8-10.2); CARBON DIOXIDE LEVEL 31 MEQ/L (21-32); CHLORIDE LEVEL 101 MEQ/L (98-107); CK-MB VALUE MASS 2.7 NG/ML (<3.6); CPK CREATINE PHOSPHOKINASE 117 U/L (39-308); CREATININE FOR GFR 1.04 MG/DL (0.70-1.30); GLOMERULAR FILTRATION RATE > 60.0 (>35); GLUCOSE, FASTING 144 MG/DL (70-100); MB/CK RELATIVE INDEX 2.31 (< OR =4); NT-PRO BNP 703 PG/ML (<450); POTASSIUM SERUM 4.6 MEQ/L (3.5-5.1); SODIUM LEVEL 136 MEQ/L (136-145); TROPONIN I < 0.02 NG/ML (< 0.10)
[2019-05-16] MEDS ORDERED: cefTRIAXone SOD 1 GM in D5W MINI-BAG PLUS 50 ML IV ONE (22:30)
[2019-05-16] MEDS ORDERED: LEVALBUTEROL 1.25 MG/0.5 ML CONCENTRATE NEB INH PRN (23:30)
[2019-05-16] MEDS ORDERED: AMIO200T PO (23:38)
[2019-05-17] MEDS: DOXYCYCLINE HYCLATE 100 MG in D5W MINI-BAG PLUS 100 ML IV SCH ×3 (00:34→22:12)
[2019-05-17] MEDS ORDERED: LEVALBUTEROL 1.25 MG/0.5 ML CONCENTRATE NEB NEB ONE (02:15)
[2019-05-17] MEDS ORDERED: ACETAMINOPHEN 500 MG TAB PO PRN (02:15)
[2019-05-17] MEDS ORDERED: NITROGLYCERIN 0.4 MG SUBL TABLET SL PRN (02:15)
[2019-05-17] MEDS ORDERED: FUROSEMIDE 40 MG/4 ML VIAL (J1940) IV ONE (02:15)
[2019-05-17] MEDS ORDERED: LEVALBUTEROL 1.25 MG/0.5 ML CONCENTRATE NEB INH PRN (02:15)
[2019-05-17] MEDS: THIAMINE 100 MG TAB PO SCH ×2 (03:22→20:34)
[2019-05-17] MEDS: AMIODARONE 200 MG TAB (PACERONE) PO SCH ×2 (03:22→20:34)
[2019-05-17] MEDS: ASPIRIN 81 MG ENTERIC TAB PO SCH ×2 (04:26→20:34)
[2019-05-17] MEDS: ATORVASTATIN 20 MG TAB PO SCH ×2 (04:26→20:34)
[2019-05-17] MEDS: LACTOBACILLUS ACIDOPHILUS CAP (BACID) PO SCH ×5 (04:26→20:34)
[2019-05-17 05:50] VITALS: BP 127/70
[2019-05-17 06:35] LABS: HEMATOCRIT 48.5 % (42.0-52.0); HEMOGLOBIN 15.9 g/dl (13.5-17.5); LYMPH # 0.8 10^3/uL (1.5-5.0); LYMPH % 19.1 % (24.0-44.0); MEAN CORPUSCULAR HGB CONC 32.8 g/dl (32.0-36.5); MEAN CORPUSCULAR VOLUME 97.6 fl (80.0-96.0); MONO # 0.1 10^3/uL (0.0-0.8); MONO % 1.4 % (0.0-5.0); NEUTROPHILS # 3.3 10^3/uL (1.5-8.5); PLATELET COUNT, AUTOMATED 118 10^3/uL (150-450); RED BLOOD COUNT 4.97 10^6/uL (4.30-6.10); WHITE BLOOD COUNT 4.2 10^3/uL (4.0-10.0)
[2019-05-17] MEDS: methylPREDNISolone INJ 125 MG/2 ML VIAL (J2930) IV SCH ×3 (06:47→22:12)
[2019-05-17 06:51] LABS: BLOOD UREA NITROGEN 17 MG/DL (7-18); CALCIUM LEVEL 8.4 MG/DL (8.8-10.2); CARBON DIOXIDE LEVEL 34 MEQ/L (21-32); CHLORIDE LEVEL 100 MEQ/L (98-107); CK-MB VALUE MASS 2.4 NG/ML (<3.6); CPK CREATINE PHOSPHOKINASE 95 U/L (39-308); CREATININE FOR GFR 0.97 MG/DL (0.70-1.30); GLOMERULAR FILTRATION RATE > 60.0 (>35); GLUCOSE, FASTING 166 MG/DL (70-100); MB/CK RELATIVE INDEX 2.53 (< OR =4); POTASSIUM SERUM 4.4 MEQ/L (3.5-5.1); SODIUM LEVEL 137 MEQ/L (136-145); TROPONIN I < 0.02 NG/ML (< 0.10)
[2019-05-17] MEDS: LEVALBUTEROL 1.25 MG/0.5 ML CONCENTRATE NEB INH SCH ×4 (07:22→20:32)
--- NOTE | 2019-05-17 07:59 | REP ---
Portable chest, two AP views, patient sitting, 07:51 p.m.: Comparison is 11/20/2018. The the there is increased density inferiorly in the right lung, likely an acute infiltrate. Lung churchill otherwise clear, unchanged. There are no pleural effusions. Cardiac size is normal. The arcelia, mediastinum, skeletal structures are unremarkable. The dual chamber pacemaker and sternotomy wires are unchanged. Impression: Infiltrate inferiorly in the right lung. Electronically Signed by Jorje Rodriguez MD 05/17/2019 07:51 A
[2019-05-17] MEDS ORDERED: LEVALBUTEROL 1.25 MG/0.5 ML CONCENTRATE NEB INH SCH (08:00)
[2019-05-17] MEDS: OMEPRAZOLE 20 MG CAP PO SCH (08:38)
[2019-05-17] MEDS: APIXABAN 5 MG TAB (ELIQUIS) PO SCH ×2 (08:38→20:34)
--- NOTE | 2019-05-17 13:46 | HPE ---
DATE OF ADMISSION: 05/16/2019 CHIEF COMPLAINT: Shortness of breath. HISTORY OF PRESENTING ILLNESS: An 84-year-old male with history of chronic obstructive pulmonary disease (COPD) not oxygen dependent, quit smoking six months ago, previously used pipe for about 40 years and then cigar recently until six months ago, coronary artery disease (CAD), coronary artery bypass graft (CABG), follows with Dr. Salcedo, atrial fibrillation with pacemaker placement, pericardial window, CAD syncopal episode, presents to the emergency room with worsening shortness of breath since last . Patient described exertional dyspnea initially and then eventually, even at rest, accompanied by dry cough and difficulty expectorate, without fever or chills. Denied any chest pain. Despite nebulizer treatments at home with albuterol, patient has had no improvement. He has had no weight gain or lower extremity edema. He usually sleeps with only one pillow. Denies any orthopnea. Sleeps on the right side with one pillow. He gets winded when he goes up a flight of stairs. No nausea or vomiting, abdominal pain. No diarrhea, bright red blood per rectum, melena or black, tarry stools. Patient complains of slight constipation, has had no sick contacts and no recent travel. In the emergency room (ER), he was found to be afebrile. White count was normal. BNP was slightly elevated at 703. Troponin was negative. EKG was paced rhythm with chronic left anterior fascicular block, rate of 69, with right bundle branch block. He was hypoxic at 83% on room air. Chest x-ray showed dual-chamber pacemaker, hyperinflated lungs, crowding of the lung, COPD, sternotomy wires, no pneumothorax, chronic, stable changes and infiltrates. Hospitalist service was called for a pneumonia/COPD exacerbation for admission. PAST MEDICAL HISTORY: 1. Chronic obstructive pulmonary disease (COPD). 2. Coronary artery disease (CAD). 3. Coronary artery bypass graft (CABG). 4. Pericardial window. 5. Syncope. 6. Atrial fibrillation. 7. Pacemaker. 8. Aneurysm repair. 9. Nicotine abuse with pipe use for 40 years, transitioned to cigar, but quit six months ago. 10. Alcohol abuse, quite about six months ago. 11. Hypertension. 12. Reflux. 13. Chronic thrombocytopenia. PAST SURGICAL HISTORY: 1. Pacemaker. 2. Hemorrhoidectomy. 3. Pericardial window. 4. Coronary artery bypass graft (CABG) times three vessels. 5. Aneurysm repair. FAMILY HISTORY: Father in his 60s, unknown medical problems. Mother at 75, unknown medical problems. Six brothers, three sisters, all , unknown medical problems. SOCIAL HISTORY: Patient lives with , previously was heavy alcohol abuse, quit six months ago. 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 Used a pipe for 40 years and transitioned to cigar until six months ago, when he quit entirely. Patient says that he does not want to be resuscitated (DO NOT RESUSCITATE), no cardiopulmonary resuscitation, no mechanical intubation. HOME MEDICATIONS: - albuterol two puffs every 4 hours. - Combivent one puffs four times a day - multivitamin 1 tablet at bedtime - acetaminophen 1 gram every 6 hours as needed - amiodarone 200 mg at bedtime - Eliquis 5 mg twice a day - aspirin 81 mg at bedtime - atorvastatin 40 mg at bedtime - nitroglycerine 0.4 mg every 5 minutes as needed for chest pain - Prilosec 20 mg daily - thiamine 100 mg at bedtime REVIEW OF SYSTEMS: Per history of present illness (HPI). A 12 point system otherwise negative. PHYSICAL EXAMINATION: Temperature 99.8, pulse 75, respiratory 22, blood pressure 102/59, 83% on room air, 90% on 2 liters nasal cannula. GENERAL: Patient is awake, alert, oriented to person, place and time, answering questions appropriately. He has no respiratory distress. Face is symmetric. Pupils round and reactive. Extraocular muscles are intact. Moist mucous membranes. Unable to assess jugular venous distention (JVD), thick neck. No cervical lymphadenopathy or thyromegaly. LUNGS: Diminished with bilateral rhonchi. HEART: S1, S2. Regular rate and rhythm. ABDOMEN: Obese. Soft, nontender, nondistended. EXTREMITIES: No clubbing, cyanosis or any pitting edema. LABORATORY DATA: White count 6, hemoglobin 15, hematocrit 47, platelet count of 110. Sodium 136, potassium 4.6, chloride 101, bicarbonate 31, BUN 18, creatinine 1.04, glucose of 144, calcium of 8.5. BNP of 703. Troponin less than 0.02. Total CK 117. MB fraction of 2.7. MICROBIOLOGY: Blood culture pending. Respiratory panel negative. IMAGING: Chest x-ray: Official report is pending. ASSESSMENT AND PLAN: This is an 84-year-old male with history of cigar use, COPD not oxygen dependent, syncope, atrial fibrillation with pacemaker, CAD, CABG, pericardial window, aneurysm repair, previous alcohol abuse, presents to the emergency room with worsening shortness of breath since , found to have community-acquired pneumonia, acute hypoxia saturating 83% on room air, and COPD exacerbation. Patient will be admitted as an inpatient for two midnights for the following issues. 1. Community-acquired pneumonia. The patient is currently on ceftriaxone and doxycycline for atypical coverage. Sputum culture, urine Legionella, urine Streptococcal antigen have been ordered. Nebulizer treatment for symptomatic relief and continue with supplemental oxygen until patient clinically improves. 2. COPD exacerbation. Currently with nebulizer treatments four times a day and every hour as needed. On Solu-Medrol 60 mg IV every 8 hours starting at 6:00 a.m. The patient did receive Solu-Medrol in the ER, 125 mg at 1945 p.m. 3. History of CAD/CABG. Continue on home medications, aspirin, atorvastatin. Patient is not on any beta-blockade. 4. Atrial fibrillation with pacemaker. Currently sinus rhythm on amiodarone, which is resumed and Eliquis for cerebrovascular accident (CVA) prophylaxis. 5. Previous tobacco use with COPD. Quit six months ago. 6. History of alcohol abuse. Patient quit six months ago. 7. CODE STATUS: Patient is DO NOT RESUSCITATE/DO NOT INTUBATE. 8. Deep venous thrombosis (DVT) prophylaxis. On chronic Eliquis. MTDD
[2019-05-17 14:00] VITALS: BP 107/56
--- NOTE | 2019-05-17 19:22 | IPNPDOC ---
Date Seen The patient was seen on 05/17/19. Progress Note SUBJECTIVE: 84-year-old male with past medical history of COPD, atrial fibrillation (on Eliquis), coronary artery disease status post CABG and congestive heart failure with reduced ejection fraction was admitted for COPD exacerbation and hypoxemia. Patient is on home oxygen, currently requiring 2 L by nasal cannula to maintain adequate saturation, clinically, reports significant improvement after treatment in the emergency department overnight. Patient ambulating in the room on room air without developing any symptoms, has significant drop in O2 sats when ambulating, although remains a symptomatic. He continues to have mild productive cough, no other symptoms. He denies any chest pain, nausea, vomiting, abdominal pain or diarrhea. 10 point review of systems negative except for above PHYSICAL EXAMINATION: VITAL SIGNS: Please see below. GENERAL: No distress HEENT: Normocephalic, atraumatic, moist mucous membranes NECK: Supple CARDIOVASCULAR EXAMINATION: S1, S2, no murmurs RESPIRATORY EXAMINATION: Poor air movement, mild expiratory wheezing ABDOMINAL EXAMINATION: Soft, nontender, nondistended, positive bowel sounds EXTREMITIES: Range of motion intact SKIN: No rash NEUROLOGICAL EXAMINATION: Alert and oriented 3, no focal deficits PSYCHIATRIC EXAMINATION: Calm and cooperative LABORATORY DATA, IMAGING STUDIES, MICROBIOLOGY: Please see below. DVT prophylaxis ordered?: No ASSESSMENT AND PLAN: 84-year-old male with multiple medical comorbidities is admitted for COPD exacerbation PROBLEMS: 1. COPD exacerbation: Significant drop in O2 saturation when ambulating, requiring supplemental oxygen, continue IV steroids, nebulizers, and doxycycline. Tentatively plan for discharge tomorrow if able to come off of supplemental oxygen. 2. Coronary artery disease: History of CABG, continue optimal medical management with aspirin, statin. 3. Congestive heart failure: Previous echo with EF of 40-45%, at baseline, received 1 dose of Lasix in the ED. 4. Atrial fibrillation: Continue amiodarone and Eliquis DVT prophylaxis: on Eliquis General prophylaxis: Home PPI VS, I&O, 24H, Fishbone Vital Signs/I&O Vital Signs Date Time Temp Pulse Resp B/P (MAP) Pulse Ox O2 Delivery O2 Flow Rate FiO2 05/17/19 14:00 97.8 91 16 107/56 (73) 71 Nasal Cannula 2.0 05/17/19 09:00 92 I&O- Last 24 Hours up to 6 AM 05/17/19 06:00 Intake Total 100 ml Output Total 250 ml Balance -150 ml Laboratory Data 24H LABS Laboratory Tests 2 05/16/19 19:43: Lactic Acid Level 0.9 05/16/19 19:44: Immature Granulocyte % (Auto) 0.3, Neutrophils (%) (Auto) 68.3H, Lymphocytes (%) (Auto) 22.1L, Monocytes (%) (Auto) 8.8H, Eosinophils (%) (Auto) 0.2, Basophils (%) (Auto) 0.3, Neutrophils # (Auto) 4.1, Lymphocytes # (Auto) 1.3L, Monocytes # (Auto) 0.5, Eosinophils # (Auto) 0.0, Basophils # (Auto) 0.0, Nucleated Red Blood Cells % (auto) 0.0, Anion Gap 4L, Glomerular Filtration Rate > 60.0, Calcium Level 8.5L, Total Creatine Kinase 117, Creatine Kinase MB 2.7, Creatine Kinase MB Relative Index 2.31, Troponin I < 0.02, ZQ-Yhu-G-Type Natriuretic Peptide 703H 05/16/19 21:17: POC pH (Misc Panel) 7.388, POC Base Excess (Misc Panel) 5.0H, POC Saturated Percent O2 (Misc) 90L, POC pO2 (Misc Panel) 61.0L, POC pCO2 (Misc Panel) 50.4H, POC HCO3 (Misc Panel) 30.4H, POC Total CO2 (Misc Panel) 32.0H 05/17/19 02:22: IG-Ycv-U-Type Natriuretic Peptide 518H 05/17/19 06:12: Immature Granulocyte % (Auto) 0.5, Neutrophils (%) (Auto) 79.0H, Lymphocytes (%) (Auto) 19.1L, Monocytes (%) (Auto) 1.4, Eosinophils (%) (Auto) 0.0, Basophils (%) (Auto) 0.0, Neutrophils # (Auto) 3.3, Lymphocytes # (Auto) 0.8L, Monocytes # (Auto) 0.1, Eosinophils # (Auto) 0.0, Basophils # (Auto) 0.0, Nucleated Red Blood Cells % (auto) 0.0, Anion Gap 3L, Glomerular Filtration Rate > 60.0, Calc ium Level 8.4L, Total Creatine Kinase 95, Creatine Kinase MB 2.4, Creatine Kinase MB Relative Index 2.53, Troponin I < 0.02 CBC/BMP Laboratory Tests 05/16/19 19:44 05/17/19 06:12 Microbiology Microbiology 05/16/19 Blood Culture, Received Pending 05/16/19 Respiratory Virus Panel (PCR) ([facility]) - Final, Complete 05/16/19 Blood Culture, Received Pending ZAHRAA FRANKLIN MD May 17, 2019 19:22
--- NOTE | 2019-05-17 20:51 | ECGEPIP ---
[facility] - ED Test Date: 2019-05-16 Pat Name: ALVIN BAILEY Department: Room: [place] [address] Gender: Male Pump Installer: sierra : 1935 Requested By: GRAHAM Nolen Order Number: [id number] Reading MD: Patrica Tesfaye Measurements Intervals [place] Rate: 69 P: 166 [place]: 182 QRS: -68 QRSD: 161 T: 87 QT: 457 QTc: 493 Interpretive Statements ELECTRONIC ATRIAL PACEMAKER RIGHT BUNDLE BRANCH BLOCK LEFT ANTERIOR FASCICULAR BLOCK SIMILAR 11/20/18 Electronically Signed on 05-17-2019 20:51:36 EST by Patrica Tesfaye
[2019-05-17 22:00] VITALS: BP 109/57
[2019-05-18] MEDS: LEVALBUTEROL 1.25 MG/0.5 ML CONCENTRATE NEB INH SCH ×7 (00:31→22:36)
[2019-05-18 06:00] VITALS: BP 106/58
[2019-05-18] MEDS: methylPREDNISolone INJ 125 MG/2 ML VIAL (J2930) IV SCH ×3 (06:34→22:29)
[2019-05-18 06:51] LABS: BASO % 0.1 % (0.0-1.0); HEMATOCRIT 42.7 % (42.0-52.0); HEMOGLOBIN 14.6 g/dl (13.5-17.5); LYMPH # 0.6 10^3/uL (1.5-5.0); LYMPH % 6.1 % (24.0-44.0); MEAN CORPUSCULAR HEMOGLOBIN 33.3 pg (27.0-33.0); MEAN CORPUSCULAR HGB CONC 34.2 g/dl (32.0-36.5); MEAN CORPUSCULAR VOLUME 97.3 fl (80.0-96.0); MONO # 0.4 10^3/uL (0.0-0.8); MONO % 4.3 % (0.0-5.0); PLATELET COUNT, AUTOMATED 119 10^3/uL (150-450); RED BLOOD COUNT 4.39 10^6/uL (4.30-6.10); WHITE BLOOD COUNT 10.1 10^3/uL (4.0-10.0)
[2019-05-18 07:15] LABS: BLOOD UREA NITROGEN 21 MG/DL (7-18); CALCIUM LEVEL 9.3 MG/DL (8.8-10.2); CARBON DIOXIDE LEVEL 32 MEQ/L (21-32); CHLORIDE LEVEL 100 MEQ/L (98-107); CREATININE FOR GFR 0.94 MG/DL (0.70-1.30); GLOMERULAR FILTRATION RATE > 60.0 (>35); GLUCOSE, FASTING 182 MG/DL (70-100); POTASSIUM SERUM 4.3 MEQ/L (3.5-5.1); SODIUM LEVEL 135 MEQ/L (136-145)
[2019-05-18] MEDS: LACTOBACILLUS ACIDOPHILUS CAP (BACID) PO SCH ×4 (08:02→20:14)
[2019-05-18] MEDS: APIXABAN 5 MG TAB (ELIQUIS) PO SCH ×2 (08:03→20:14)
[2019-05-18] MEDS: OMEPRAZOLE 20 MG CAP PO SCH (08:03)
[2019-05-18] MEDS: DOXYCYCLINE HYCLATE 100 MG in D5W MINI-BAG PLUS 100 ML IV SCH ×2 (10:46→22:29)
--- NOTE | 2019-05-18 12:02 | REP ---
CHEST X-RAY: Two views. HISTORY: Hypoxia. COMPARISON CHEST X-RAY: May 16, 2019. FINDINGS: Patient status post prior median sternotomy. Bipolar pacemaker leads are seen in place. Heart is not felt to be enlarged overall and is unchanged. The lungs are somewhat hyperinflated. Pleural angles are sharp. Interstitial fibrosis pattern persists in the lung churchill diffusely. Pulmonary vasculature is not increased. IMPRESSION: Prior sternotomy. Pacemaker in place. Mild diffuse interstitial fibrosis pattern again seen. No focal infiltrate visible. Electronically Signed by Robert Ramirez MD 05/18/2019 03:52 P
[2019-05-18 14:33] VITALS: BP 126/65
--- NOTE | 2019-05-18 16:18 | IPNPDOC ---
Date Seen The patient was seen on 05/18/19. Progress Note SUBJECTIVE: 84-year-old male with past medical history of COPD, atrial fibrillation (on Eliquis), coronary artery disease status post CABG and congestive heart failure with reduced ejection fraction was admitted for COPD exacerbation and hypoxemia. Patient is on home oxygen, currently requiring 2 L by nasal cannula to maintain adequate saturation, clinically, reports significant improvement after treatment in the emergency department overnight. Patient ambulating in the room on room air without developing any symptoms, has significant drop in O2 sats when ambulating, although remains a symptomatic. He continues to have mild productive cough, no other symptoms. He denies any chest pain, nausea, vomiting, abdominal pain or diarrhea. 05/18/19 Patient seen in the morning, requiring increased supplemental oxygen despite having improvement in clinical symptoms, repeat chest x-ray showing pulmonary fibrosis, otherwise unchanged from prior. 10 point review of systems negative except for above PHYSICAL EXAMINATION: VITAL SIGNS: Please see below. GENERAL: No distress HEENT: Normocephalic, atraumatic, moist mucous membranes NECK: Supple CARDIOVASCULAR EXAMINATION: S1, S2, no murmurs RESPIRATORY EXAMINATION: mild expiratory wheezing, minimal rhonchi ABDOMINAL EXAMINATION: Soft, nontender, nondistended, positive bowel sounds EXTREMITIES: Range of motion intact SKIN: No rash NEUROLOGICAL EXAMINATION: Alert and oriented 3, no focal deficits PSYCHIATRIC EXAMINATION: Calm and cooperative LABORATORY DATA, IMAGING STUDIES, MICROBIOLOGY: Please see below. DVT prophylaxis ordered?: No ASSESSMENT AND PLAN: 84-year-old male with multiple medical comorbidities is admitted for COPD exacerbation PROBLEMS: 1. COPD exacerbation: continue IV steroids, nebulizers, supplemental oxygen and doxycycline. 2. Acute hypoxemic respiratory failure: Secondary to above, chest x-ray also showing possible primary fibrosis which may be a contributing factor, continue supplemental oxygen as needed to maintain O2 sats between 88-92%. 3. Coronary artery disease: History of CABG, continue optimal medical management with aspirin, statin. 4. Congestive heart failure: Previous echo with EF of 40-45%, at baseline. 5. Atrial fibrillation: Continue amiodarone and Eliquis DVT prophylaxis: on Eliquis General prophylaxis: Home PPI VS, I&O, 24H, Fishbone Vital Signs/I&O Vital Signs Date Time Temp Pulse Resp B/P (MAP) Pulse Ox O2 Delivery O2 Flow Rate FiO2 05/18/19 09:00 4.0 05/18/19 06:00 97.7 71 20 106/58 (74) 94 Nasal Cannula 05/17/19 21:00 90 I&O- Last 24 Hours up to 6 AM 05/18/19 05:59 Intake Total 2140 ml Output Total 250 ml Balance 1890 ml Laboratory Data 24H LABS Laboratory Tests 2 05/18/19 06:13: Immature Granulocyte % (Auto) 0.5, Neutrophils (%) (Auto) 89.0H, Lymphocytes (%) (Auto) 6.1L, Monocytes (%) (Auto) 4.3, Eosinophils (%) (Auto) 0.0, Basophils (%) (Auto) 0.1, Neutrophils # (Auto) 9.0H, Lymphocytes # (Auto) 0.6L, Monocytes # (Auto) 0.4, Eosinophils # (Auto) 0.0, Basophils # (Auto) 0.0, Nucleated Red Blood Cells % (auto) 0.0, Anion Gap 3L, Glomerular Filtration Rate > 60.0, Calcium Level 9.3 CBC/BMP Laboratory Tests 05/18/19 06:13 Microbiology Microbiology 05/16/19 Blood Culture - Preliminary, Resulted No growth after 24 hours . All specim... 05/16/19 Respiratory Virus Panel (PCR) ([facility]) - Final, Complete 05/16/19 Blood Culture - Preliminary, Resulted No growth after 24 hours . All specim... ZAHRAA FRANKLIN MD May 18, 2019 16:18
[2019-05-18] MEDS: ASPIRIN 81 MG ENTERIC TAB PO SCH (20:14)
[2019-05-18] MEDS: THIAMINE 100 MG TAB PO SCH (20:14)
[2019-05-18] MEDS: AMIODARONE 200 MG TAB (PACERONE) PO SCH (20:14)
[2019-05-18] MEDS: ATORVASTATIN 20 MG TAB PO SCH (20:14)
[2019-05-18 20:34] VITALS: BP 124/65
[2019-05-19] MEDS: LEVALBUTEROL 1.25 MG/0.5 ML CONCENTRATE NEB INH SCH ×4 (03:00→15:29)
[2019-05-19] MEDS ORDERED: SENOKOT S TAB PO SCH (03:45)
[2019-05-19 04:53] VITALS: BP 119/66
[2019-05-19] MEDS: methylPREDNISolone INJ 125 MG/2 ML VIAL (J2930) IV SCH (05:14)
[2019-05-19 06:43] LABS: HEMATOCRIT 43.9 % (42.0-52.0); HEMOGLOBIN 14.4 g/dl (13.5-17.5); MEAN CORPUSCULAR HEMOGLOBIN 32.5 pg (27.0-33.0); MEAN CORPUSCULAR HGB CONC 32.8 g/dl (32.0-36.5); MEAN CORPUSCULAR VOLUME 99.1 fl (80.0-96.0); PLATELET COUNT, AUTOMATED 125 10^3/uL (150-450); RED BLOOD COUNT 4.43 10^6/uL (4.30-6.10); WHITE BLOOD COUNT 9.6 10^3/uL (4.0-10.0)
[2019-05-19 07:07] LABS: BLOOD UREA NITROGEN 22 MG/DL (7-18); CALCIUM LEVEL 8.8 MG/DL (8.8-10.2); CARBON DIOXIDE LEVEL 32 MEQ/L (21-32); CHLORIDE LEVEL 103 MEQ/L (98-107); GLOMERULAR FILTRATION RATE > 60.0 (>35); GLUCOSE, FASTING 183 MG/DL (70-100); MAGNESIUM LEVEL 2.1 MG/DL (1.8-2.4); PHOSPHORUS LEVEL 2.5 MG/DL (2.5-4.9); POTASSIUM SERUM 4.6 MEQ/L (3.5-5.1); SODIUM LEVEL 138 MEQ/L (136-145)
[2019-05-19] MEDS: LACTOBACILLUS ACIDOPHILUS CAP (BACID) PO SCH ×2 (08:31→13:35)
[2019-05-19 09:37] VITALS: BP 120/64
[2019-05-19] MEDS: OMEPRAZOLE 20 MG CAP PO SCH (09:53)
[2019-05-19] MEDS: APIXABAN 5 MG TAB (ELIQUIS) PO SCH (09:53)
[2019-05-19] MEDS: DOXYCYCLINE HYCLATE 100 MG in D5W MINI-BAG PLUS 100 ML IV SCH (10:54)
[2019-05-19] MEDS ORDERED: PRED10TA2 PO (12:57)
[2019-05-19] MEDS ORDERED: FLEET ENEMA PR ONE (13:00)
[2019-05-19 13:46] VITALS: BP 122/67
--- NOTE | 2019-05-19 15:12 | DS.PDOC ---
Discharge Summary General Date of Admission May 16, 2019 at 23:27 Date of Discharge 05/19/2019 Attending Physician: ZAHRAA FRANKLIN MD Discharge Summary PROCEDURES PERFORMED DURING STAY: None. ADMITTING DIAGNOSES: 1. COPD exacerbation, acute on chronic hypoxemic respiratory failure. DISCHARGE DIAGNOSES: 1. COPD exacerbation, acute on chronic hypoxemic respiratory failure. COMPLICATIONS/CHIEF COMPLAINT: SOB. HISTORY OF PRESENT ILLNESS: 84-year-old male with past medical history of COPD, not oxygen dependent, coronary artery disease status post CABG, atrial fibrillation and congestive heart failure, was admitted for COPD exacerbation. Patient with significant hypoxemic, currently requiring 3 L of oxygen via nasal cannula to maintain adequate oxygenation, patient's oxygen saturations drops to 84% on room air. Patient's imaging is consistent with COPD and mild pulmonary fibrosis which is likely the etiology of patient's chronic hypoxemia with acute worsening due to COPD exacerbation. Patient most likely never placed on nausea before because clinically he is minimally symptomatic, despite becoming significantly hypoxemic, so the hypoxemia was never picked up or addressed before. Patient will be discharged on home oxygen with outpatient follow with [facility] controller and PCP. Patient also be discharged on a prednisone taper. Patient is clinically and hemodynamically stable for discharge and outpatient follow-up at this time. HOSPITAL COURSE: As above. DISCHARGE MEDICATIONS: Please see below. ALLERGIES: Please see below. PHYSICAL EXAMINATION: VITAL SIGNS: Please see below. GENERAL: No distress HEENT: Normocephalic, atraumatic, moist mucous membranes NECK: Supple CARDIOVASCULAR EXAMINATION: S1, S2, no murmurs RESPIRATORY EXAMINATION: mild expiratory wheezing, minimal rhonchi ABDOMINAL EXAMINATION: Soft, nontender, nondistended, positive bowel sounds EXTREMITIES: Range of motion intact SKIN: No rash NEUROLOGICAL EXAMINATION: Alert and oriented 3, no focal deficits PSYCHIATRIC EXAMINATION: Calm and cooperative LABORATORY DATA: Please see below. IMAGING: Chest x-ray showing COPD and mild pulmonary fibrosis PROGNOSIS: Fair ACTIVITY: As tolerated. DIET: Cardiac DISCHARGE PLAN: Follow with university controller and PCP in 1-2 weeks DISPOSITION: Home with home care. DISCHARGE INSTRUCTIONS: 1. As above. DISCHARGE CONDITION: Stable. TIME SPENT ON DISCHARGE: Greater than 34 minutes. Vital Signs/I&Os Vital Signs Date Time Temp Pulse Resp B/P (MAP) Pulse Ox O2 Delivery O2 Flow Rate FiO2 05/19/19 13:46 98.2 74 18 122/67 (85) 92 Nasal Cannula 3.0 05/19/19 11:17 90 I&O- Last 24 Hours up to 6 AM 05/19/19 06:00 Intake Total 1900 ml Output Total 2945 ml Balance -1045 ml Laboratory Data Labs 24H Laboratory Tests 2 05/19/19 06:31: Nucleated Red Blood Cells % (auto) 0.0, Anion Gap 3L, Glomerular Filtration Rate > 60.0, Calcium Level 8.8, Phosphorus Level 2.5, Magnesium Level 2.1 05/19/19 11:10: Methicillin-Resist S.aureus DNA PCR NOT DETECTED CBC/BMP Laboratory Tests 05/19/19 06:31 Microbiology Microbiology 05/19/19 Gram Stain, Received Pending 05/19/19 Sputum Culture, Received Pending 05/16/19 Blood Culture - Preliminary, Resulted No Growth after 48 hours. All Specime... 05/16/19 Respiratory Virus Panel (PCR) ([facility]) - Final, Complete 05/16/19 Blood Culture - Preliminary, Resulted No Growth after 48 hours. All Specime... Discharge Medications Scheduled Amiodarone HCl (Amiodarone HCl) 200 Mg Tablet, 200 MG PO QHS, (Reported) Apixaban (Eliquis) 5 Mg Tablet, 5 MG PO BID, (Reported) Aspirin (Aspir 81) 81 Mg Tablet.dr, 81 MG PO QHS, (Reported) Atorvastatin Calcium (Atorvastatin Calcium) 40 Mg Tablet, 40 MG PO QHS, (Reported) Ipratropium/Albuterol Sulfate (Combivent Respimat 20-100 Mcg) 4 Gm Mist.inhal, 1 PUFF INH QID, (Reported) Multivitamin (Multivitamins) 1 Each Capsule, 1 CAP PO QHS, (Reported) Omeprazole (Omeprazole) 20 Mg Capsule.dr, 20 MG PO DAILY, (Reported) Prednisone (Prednisone) 10 Mg Tablet, 1 TAB PO DAILY 5 tabs daily x2 days then 4 tabs daily x2 days then 3 tabs daily x2 days then 2 tabs daily x2 days then 1 tab daily x2 days. Thiamine Hcl (Vitamin B-1) 100 Mg Tablet, 100 MG PO QHS, (Reported) Scheduled PRN Acetaminophen (Acetaminophen) 500 Mg Tablet, 1,000 MG PO Q6H PRN for PAIN, (Reported) Albuterol Sulfate (Proair Hfa) 8.5 Gm Hfa.aer.ad, 2 PUFF INH Q4H PRN for SOB/WHEEZING, (Reported) Nitroglycerin (Nitroglycerin) 0.4 Mg Tab.subl, 0.4 MG SL NITRO PRN for CHEST PAIN, (Reported) Allergies Coded Allergies: TAPE (Unverified Adverse Reaction, Intermediate, CAUSED REDNESS AND SKIN TEARS, 10/18/18) ZAHRAA FRANKLIN MD May 19, 2019 15:12
[2019-05-19] MEDS ORDERED: DOXYCYCLINE HYCLATE 100 MG TAB PO SCH (21:00)
[2019-05-20] MEDS ORDERED: predniSONE 50 MG TAB PO SCH (09:00)
== END 2019-05-19 17:05 | disposition home or self-care (01) | DRG 189 ==
LOC: M ED 18:52 → M ED INP 23:27 → ENRESERV 05-17 03:24 → M MS5PR 05-17 05:15
PROVIDERS: ADMIT General Practice; ATTEND Internal Medicine
DX: J96.21 Acute and chronic respiratory failure with hypoxia (principal); J44.1 Chronic obstructive pulmonary disease with (acute) exacerbation; I50.22 Chronic systolic (congestive) heart failure; I25.10 Atherosclerotic heart disease of native coronary artery without angina pectoris; I48.91 Unspecified atrial fibrillation; Z95.1 Presence of aortocoronary bypass graft; Z79.82 Long term (current) use of aspirin; Z79.899 Other long term (current) drug therapy; Z91.048 Other nonmedicinal substance allergy status; Z87.891 Personal history of nicotine dependence; Z95.0 Presence of cardiac pacemaker; I11.0 Hypertensive heart disease with heart failure; K21.9 Gastro-esophageal reflux disease without esophagitis; D69.6 Thrombocytopenia, unspecified; Z66 Do not resuscitate; Z99.81 Dependence on supplemental oxygen

== ENCOUNTER 2019-08-12 16:31 | Emergency (ER) | payer MEDICARE ==
[~2019-08-12] VITALS: Ht 172.7 cm; Wt 90.7 kg
[~2019-08-12 16:31] MED LIST changes: +PRED10TA2 PO
[2019-08-12 16:32] VITALS: BP 137/70
--- NOTE | 2019-08-12 17:28 | REP ---
Clinical: Trauma. Technique: Frontal view of the chest with four views of the right hemithorax. Findings: Frontal view of the chest demonstrates chronic-appearing interstitial changes without acute cardiopulmonary process. Multiple views of the right hemithorax demonstrates no obvious acute rib fracture or pathology. Impression: No acute right rib fracture. Electronically Signed by Bryant Hassan MD 08/12/2019 05:19 P
[2019-08-12] MEDS ORDERED: ACETAMINOPHEN 325 MG TAB PO ONE (17:30)
== END 2019-08-12 16:54 | disposition home or self-care (01) ==
LOC: M ED 16:31
DX: S29.011A Strain of muscle and tendon of front wall of thorax, initial encounter (principal); W08.XXXA Fall from other furniture, initial encounter; Y92.9 Unspecified place or not applicable; I11.0 Hypertensive heart disease with heart failure; I50.9 Heart failure, unspecified; I25.2 Old myocardial infarction; J44.9 Chronic obstructive pulmonary disease, unspecified; K21.9 Gastro-esophageal reflux disease without esophagitis; F32.9 Major depressive disorder, single episode, unspecified; Z95.0 Presence of cardiac pacemaker; Z95.1 Presence of aortocoronary bypass graft; Z87.19 Personal history of other diseases of the digestive system; Z79.01 Long term (current) use of anticoagulants; Z79.899 Other long term (current) drug therapy; Z91.048 Other nonmedicinal substance allergy status

== ENCOUNTER 2019-08-14 17:53 | Emergency (ER) | payer MEDICARE ==
[~2019-08-14] VITALS: Ht 170.2 cm; Wt 81.8 kg
[2019-08-14] MEDS ORDERED: IBUPROFEN 600MG TAB PO ONE (18:30)
[2019-08-14] MEDS ORDERED: diazePAM 5 MG TAB PO ONE (18:30)
[2019-08-14] MEDS ORDERED: NORC1TAB7 PO (19:57)
[2019-08-14] MEDS ORDERED: NORCO 5/325MG TABLET (BULK FOR ED) PO ONE (20:00)
--- NOTE | 2019-08-14 20:00 | REPVR ---
PROCEDURE INFORMATION: Exam: CT Chest Without Contrast Exam date and time: 08/14/2019 7:41 PM Age: 84 years old Clinical indication: Right-sided chest pain; Additional info: R rib pain TECHNIQUE: Imaging protocol: Computed tomography of the chest without contrast. 3D rendering: MIP and/or 3D reconstructed images were created by the technologist. Radiation optimization: All CT scans at this facility use at least one of these dose optimization techniques: automated exposure control; mA and/or kV adjustment per patient size (includes targeted exams where dose is matched to clinical indication); or iterative reconstruction. COMPARISON: CR Ribs uni W-PA CHEST ONLY RIGHT 08/12/2019 4:54 PM FINDINGS: Esophagus: The esophagus is dilated. This esophageal wall is thickened in the mid and distal aspect. Air-fluid level is noted in the mid esophagus. Tubes, catheters and devices: Pacemaker wires are present in the heart. Lungs: Diffuse centrilobular and paraseptal type emphysema. Peripheral ground-glass opacities noted at both lung bases. Subsegmental atelectasis/consolidation in the right lower lobe. Interstitial thickening noted in the mid and lower lung churchill. 8.6 mm pulmonary nodule right middle lobe (series 201, image 84). Pleural space: Unremarkable. No pneumothorax. No pleural effusion. Heart: There is coronary artery calcification. Epicardial/pericardial calcification suggested over the left ventricle superiorly. Mediastinum: Small sliding and paraesophageal hiatal hernia. Aorta: Unremarkable. No aortic aneurysm. Other arteries: Diffuse arterial sclerosis. Lymph nodes: Unremarkable. No enlarged lymph nodes. Gallbladder and bile ducts: Gallstones present within the gallbladder. Spleen: Capsular calcifications noted involving the spleen. Kidneys and ureters: Calcifications noted within both kidneys which appear to be vascular in nature. No hydronephrosis in either kidney. 3.2 cm low-density lesion (10 H) arising from mid left kidney medially. Bones/joints: There has been a median sternotomy. There are fractures of the right anterior 3rd and 4th ribs. Soft tissues: Unremarkable. IMPRESSION: 1. Fractures of the right anterior 3rd and 4th ribs. 2. Diffuse centrilobular and paraseptal type emphysema. 3. Interstitial thickening and peripheral ground-glass opacities particularly at the lung bases suggest interstitial lung disease. 4. Dilated thickened esophagus with air-fluid level suggesting reflux. Differential diagnostic considerations include Olivia's esophagus. In the presence of interstitial lung disease, connective tissue disease such as scleroderma should also be considered. 5. Gallstones Six. Pleural based nodule right middle lobe.For patients at low risk (minimal or absent history of smoking and of other known risk factors), recommend CT at 6-12 months, then consider CT at 18-24 months. For patients at high risk (history of smoking or of other known risk factors), recommend CT at 6-12 months, then CT at 18-24 months. (Ken et al., Fleischner Society, 2017) 7. Low-density lesion in the left kidney. This is likely a simple renal cyst. This could be confirmed with ultrasound. Electronically signed by: Mayuri Soriano On 08/14/2019 20:00:33 PM
[2019-08-14 20:57] VITALS: BP 126/61
--- NOTE | 2019-08-18 19:50 | ED PDOC ---
Post-Departure Follow-Up dr tonio snyder faxed formal report of ct chest for fu Miguel Melendez MD August 18, 2019 19:50
== END 2019-08-14 21:21 | disposition home or self-care (01) ==
LOC: M ED 17:53
DX: J44.9 Chronic obstructive pulmonary disease, unspecified (principal); R91.1 Solitary pulmonary nodule; N28.9 Disorder of kidney and ureter, unspecified; S22.41XA Multiple fractures of ribs, right side, initial encounter for closed fracture; W18.39XA Other fall on same level, initial encounter; Y92.89 Other specified places as the place of occurrence of the external cause; I10 Essential (primary) hypertension; Z79.899 Other long term (current) drug therapy; Z79.82 Long term (current) use of aspirin; Z79.01 Long term (current) use of anticoagulants; Z91.048 Other nonmedicinal substance allergy status; F17.210 Nicotine dependence, cigarettes, uncomplicated

== ENCOUNTER → 2019-08-25 | Outpatient (REF) | payer MEDICARE ==
[~2019-08-25] MED LIST changes: +NORC1TAB7 PO
== END ==
LOC: M LAB REF 15:21
PROVIDERS: ATTEND Internal Medicine Pulmonary Disease
DX: J44.9 Chronic obstructive pulmonary disease, unspecified (principal)

== ENCOUNTER → 2019-09-05 | Outpatient (CLI) | payer MEDICARE ==
[2019-09-05 13:01] LABS: HEMATOCRIT 45.7 % (42.0-52.0); HEMOGLOBIN 14.4 g/dl (13.5-17.5); MEAN CORPUSCULAR HEMOGLOBIN 32.4 pg (27.0-33.0); MEAN CORPUSCULAR HGB CONC 31.5 g/dl (32.0-36.5); MEAN CORPUSCULAR VOLUME 102.7 fl (80.0-96.0); PLATELET COUNT, AUTOMATED 131 10^3/uL (150-450); RED BLOOD COUNT 4.45 10^6/uL (4.30-6.10); WHITE BLOOD COUNT 4.8 10^3/uL (4.0-10.0)
[2019-09-05 13:39] LABS: ALBUMIN 3.4 GM/DL (3.2-5.2); ALT/SGPT 46 U/L (12-78); BILIRUBIN,TOTAL 0.4 MG/DL (0.2-1.0); BLOOD UREA NITROGEN 18 MG/DL (7-18); CALCIUM LEVEL 9.2 MG/DL (8.8-10.2); CARBON DIOXIDE LEVEL 30 MEQ/L (21-32); CHLORIDE LEVEL 105 MEQ/L (98-107); CREATININE FOR GFR 1.05 MG/DL (0.70-1.30); GLOMERULAR FILTRATION RATE > 60.0 (>35); GLUCOSE, FASTING 130 MG/DL (70-100); NT-PRO BNP 428 PG/ML (<450); SODIUM LEVEL 139 MEQ/L (136-145); TOTAL PROTEIN 7.2 GM/DL (6.4-8.2)
== END ==
LOC: M LAB 12:03
PROVIDERS: ATTEND Internal Medicine
DX: I25.10 Atherosclerotic heart disease of native coronary artery without angina pectoris (principal); R60.9 Edema, unspecified

== ENCOUNTER → 2019-12-31 | Outpatient (CLI) | payer MEDICARE ==
[~2019-12-31] MED LIST changes: -AMIO200T PO; +AMIO200T3 PO; -ASPI81TA85 PO; +ASPI81TA86 PO
--- NOTE | 2020-01-04 14:29 | REP ---
CT CHEST WITHOUT CONTRAST HISTORY: Other nonspecific abnormal finding of lung field. COMPARISON CHEST CT STUDY: Reviewed the most recent from 08/14/2019. The most remote CT chest in the patients electronic x-ray jacket is from 12/10/2007. CT FINDINGS: There are fairly advanced emphysematous changes and multifocal areas of interstitial pulmonary fibrosis predominantly peripherally in the lower lobes again seen unchanged. The previously noted pleural nodule in the right middle lobe is again noted actually less prominent than on the 08/14/2019 study. No new pulmonary nodule or mass lesion is seen. Extensive vascular calcification is noted. Pacemaker is seen. Mural thickening is again noted in the distal esophagus. Question reflux esophagitis. A small sliding hiatal hernia is seen. Normal adrenal glands. Cholelithiasis is seen. No mediastinal mass or adenopathy is observed. There is a small stable lymph node to the right of midline at the level of the thoracic inlet just lateral to the upper esophagus. This is unchanged from 2009. IMPRESSION: Evidence of chronic obstructive pulmonary disease (COPD) pulmonary fibrosis changes, which are stable. No new mass or nodule is appreciated. No new area of consolidation seen. Fairly diffuse mural thickening in the distal esophagus associated with hiatal hernia again seen, question reflux esophagitis versus Barretts. MTDD
== END ==
LOC: M RAD 09:00
PROVIDERS: ATTEND Internal Medicine Pulmonary Disease
DX: R91.8 Other nonspecific abnormal finding of lung field (principal); J43.9 Emphysema, unspecified; J84.10 Pulmonary fibrosis, unspecified; K44.9 Diaphragmatic hernia without obstruction or gangrene; K80.20 Calculus of gallbladder without cholecystitis without obstruction

== ENCOUNTER 2020-01-29 09:03 | Inpatient (IN) | payer MEDICARE ==
[~2020-01-29] VITALS: Ht 170.2 cm; Wt 86.0 kg
[2020-01-29] MEDS ORDERED: ACETAMINOPHEN 500 MG TAB PO ONE (09:30)
--- NOTE | 2020-01-29 09:52 | REP ---
INDICATION: SEPSIS/SHOCK. COMPARISON: CT 12/31/2019; chest x-ray 08/12/2019, 05/18/2019. TECHNIQUE: One view FINDINGS: Sternotomy wires and clips in the mediastinum again noted. Dual lead pacer unchanged with leads in the right atrium and right ventricle. There is hyperinflation with changes of COPD. Pattern underlying diffuse interstitial fibrosis is also noted. Patchy airspace opacities are suspected in the perihilar region the right. Some peribronchial thickening is noted. I do not see gross effusion blunting of CP angles. No dense consolidation with air bronchograms. Emphysematous changes seen throughout mid and upper lung zones. Cardiac silhouette mildly prominent. Some venous hypertension seen but no hallie edema. Early interstitial edema difficult to exclude in the setting interstitial fibrosis. Visualized bones show demineralization some degenerative changes spine and shoulders. IMPRESSION: 1. Prior sternotomy, mild cardiomegaly and dual lead pacer again seen. 2. Some mild venous hypertension. Underlying fibrosis makes early interstitial edema difficult to exclude. 3. Patchy right perihilar opacities suggested which may reflect early infiltrates. No gross effusion. <Electronically signed by Alli Sommers > 01/29/20 [id number]
[2020-01-29 10:12] LABS: BASO % 0.2 % (0.0-1.0); EOS # 0.1 10^3/uL (0.0-0.5); EOS % 1.1 % (0.0-3.0); HEMATOCRIT 51.1 % (42.0-52.0); HEMOGLOBIN 16.1 g/dl (13.5-17.5); LYMPH % 8.8 % (24.0-44.0); MEAN CORPUSCULAR HEMOGLOBIN 32.1 pg (27.0-33.0); MEAN CORPUSCULAR HGB CONC 31.5 g/dl (32.0-36.5); MONO # 0.7 10^3/uL (0.0-0.8); MONO % 6.1 % (0.0-5.0); NEUTROPHILS # 9.8 10^3/uL (1.5-8.5); NEUTROPHILS % 83.5 % (36.0-66.0); PLATELET COUNT, AUTOMATED 167 10^3/uL (150-450); RED BLOOD COUNT 5.01 10^6/uL (4.30-6.10); WHITE BLOOD COUNT 11.8 10^3/uL (4.0-10.0)
[2020-01-29] MEDS ORDERED: TREL1AER INH (10:31)
[2020-01-29 10:41] LABS: ALT/SGPT 26 U/L (12-78); BILIRUBIN,DIRECT 0.2 MG/DL (0.0-0.2); BILIRUBIN,TOTAL 0.6 MG/DL (0.2-1.0); TOTAL PROTEIN 8.6 GM/DL (6.4-8.2)
[2020-01-29 10:50] LABS: APPEARANCE, URINE HAZY (CLEAR); BACTERIA, URINE AUTO NEGATIVE (NEGATIVE); BILIRUBIN, URINE AUTO NEGATIVE (NEGATIVE); BLOOD, URINE BLOOD NEGATIVE (NEGATIVE); COLOR, URINE YELLOW (YELLOW); GLUCOSE, URINE (UA) AUTO 1+ mg/dL (NEGATIVE); KETONE, URINE AUTO NEGATIVE (NEGATIVE); LEUKOCYTE ESTERASE, URINE AUTO 1+ (NEGATIVE); NITRITE, URINE AUTO NEGATIVE (NEGATIVE); PROTEIN, URINE AUTO NEGATIVE (NEGATIVE); RBC, URINE AUTO 2 /HPF (0-3); SPECIFIC GRAVITY URINE AUTO 1.017 (1.002-1.035); SQUAMOUS EPITHELIAL CELL UR AU 0 /HPF (0-6); UROBILINOGEN, URINE AUTO 0.2 mg/dL (0.0-2.0); WBC, URINE AUTO 9 /HPF (0-3)
[2020-01-29] MEDS ORDERED: NS 500 ML IV ONE (11:00)
[2020-01-29] MEDS ORDERED: ACETAMINOPHEN TAB 650MG DOSE (2X325MG) PO PRN (12:00)
[2020-01-29] MEDS ORDERED: ISOVUE-370 76% 100ML VIAL As Ordered ONE (12:10)
--- NOTE | 2020-01-29 12:14 | HPEPDOC ---
General Date of Admission 01/29/20 Date of Service: Jan 29, 2020 Chief Complaint The patient is a 84-year-old male admitted with a reason for visit of Chills. Source: Patient Exam Limitations: No limitations Timing/Duration: 4-6 hours Severity: Moderate Associated Symptoms: Fever History of Present Illness Patient is 84 years old male with past medical history of COPD, coronary artery diseases, coronary artery bypass graft (CABG), follows with Dr. Salcedo, atrial fibrillation with pacemaker placement,pericardial window, CAD syncopal episode, presents to the emergency room with fever and chills. Patient stated that in the morning he started feeling chills and weakness. He denied any increased cough or sputum production. In ER she was found to have leukocytosis of 11.8, lactic acid 2.4, negative troponin. Vital signs pertinent for fever of 101.3 and tachypnea. Chest x-ray showed Patchy right perihilar opacities suggested which may reflect early infiltrates Home Medications Scheduled Apixaban (Eliquis) 5 Mg Tablet, 5 MG PO BID, (Reported) Aspirin (Aspir 81) 81 Mg Tablet.dr, 81 MG PO QHS, (Reported) Atorvastatin Calcium (Atorvastatin Calcium) 40 Mg Tablet, 40 MG PO QHS, (Reported) Multivitamin (Multivitamins) 1 Each Capsule, 1 CAP PO QHS, (Reported) Omeprazole (Omeprazole) 20 Mg Capsule.dr, 20 MG PO DAILY, (Reported) Thiamine Hcl (Vitamin B-1) 100 Mg Tablet, 100 MG PO QHS, (Reported) Scheduled PRN Acetaminophen (Acetaminophen) 500 Mg Tablet, 1,000 MG PO Q6H PRN for PAIN, (Reported) Albuterol Sulfate (Proair Hfa) 8.5 Gm Hfa.aer.ad, 2 PUFF INH Q4H PRN for SOB/WHEEZING, (Reported) Nitroglycerin (Nitroglycerin) 0.4 Mg Tab.subl, 0.4 MG SL NITRO PRN for CHEST PAIN, (Reported) Miscellaneous Medications Fluticasone/Umeclidin/Vilanter (Trelegy Ellipta 100-62.5-25) 1 Each Blst.w.dev, (Reported) Allergies Coded Allergies: TAPE (Unverified Adverse Reaction, Intermediate, CAUSED REDNESS AND SKIN TEARS, 10/18/18) Past Medical History Medical History 1. Chronic obstructive pulmonary disease (COPD). 2. Coronary artery disease (CAD). 3. Coronary artery bypass graft (CABG). 4. Pericardial window. 5. Syncope. 6. Atrial fibrillation. 7. Pacemaker. 8. Aneurysm repair. 9. Nicotine abuse with pipe use for 40 years, transitioned to cigar, but quit six months ago. 10. Alcohol abuse, quite about six months ago. 11. Hypertension. 12. Reflux. Surgical History 1. Pacemaker. 2. Hemorrhoidectomy. 3. Pericardial window. 4. Coronary artery bypass graft (CABG) times three vessels. 5. Aneurysm repair. Family History Father in his 60s, unknown medical problems. Mother at 75, unknown medical problems. Six brothers, three sisters, all , unknown medical problems. Social History * Smoker: former Smoker Alcohol: Denies Drugs: denies A-FIB/CHADSVASC A-FIB History Current/History of A-Fib/PAF?: Yes Current PO Anticoag Therapy: Yes Review of Systems Constitutional: Reports: Chills, Fever, Malaise Eyes: Denies: Pain ENT: Denies: Head Aches Skin: Denies: Rash, Lesions Pulmonary: Reports: Dyspnea Cardiovascular: Denies: Chest Pain, Palpitations Gastrointestinal: Denies: Nausea Genitourinary: Denies: Dysuria Hematologic: Denies: Bruising, Bleeding Excessively Endocrine: Denies: Polydipsia Musculoskeletal: Denies: Neck Pain, Back Pain Neurological: Denies: Weakness Psych: Reports: Mood Normal Physical Examination General Exam: Positive: Alert, Cooperative Eye Exam: Positive: PERRLA ENT Exam: Positive: Atraumatic Neck Exam: Positive: Supple; Negative: JVD Chest Exam: Positive: Diminished Heart Exam: Positive: Irregular Rhythm Telemetry: Positive: Atrial fibrillation Abdomen Exam: Positive: Normal bowel sounds Extremity Exam: Negative: Clubbing Skin Exam: Positive: Nl turgor and temperature Neuro Exam: Positive: Strength at 5/5 X4 ext, Cranial Nerves 3-12 NL Psych Exam: Positive: Mental status NL Vital Signs Vital Signs Date Time Temp Pulse Resp B/P (MAP) Pulse Ox O2 Delivery O2 Flow Rate FiO2 01/29/20 11:37 99.4 01/29/20 11:30 69 24 90 Nasal Cannula 2.0 01/29/20 11:20 123/59 (80) Laboratory Data Labs 24H Laboratory Tests 2 01/29/20 09:49: Immature Granulocyte % (Auto) 0.3, Neutrophils (%) (Auto) 83.5H, Lymphocytes (%) (Auto) 8.8L, Monocytes (%) (Auto) 6.1H, Eosinophils (%) (Auto) 1.1, Basophils (%) (Auto) 0.2, Neutrophils # (Auto) 9.8H, Lymphocytes # (Auto) 1.0L, Monocytes # (Auto) 0.7, Eosinophils # (Auto) 0.1, Basophils # (Auto) 0.0, Nucleated Red Blood Cells % (auto) 0.0, Lactic Acid Level 2.4*H, Total Bilirubin 0.6, Direct Bilirubin 0.2, Aspartate Amino Transf (AST/SGOT) 18, Alanine Aminotransferase (ALT/SGPT) 26, Alkaline Phosphatase 72, Total Protein 8.6H, Albumin 4.0, Albumin/Globulin Ratio 0.9 01/29/20 09:55: POC Prothrombin Time (Misc) 15.3H, POC INR (Misc) 1.3 01/29/20 09:59: POC Lactate (Misc Panel) 1.92 01/29/20 10:08: POC Glucose (Misc Panel) 184H, POC Sodium (Misc Panel) 137, POC Potassium (Misc Panel) 4.8, POC Chloride (Misc Panel) 100, POC Total CO2 (Misc Panel) 29.0H, POC Blood Urea Nitrogen (Misc Panel 18, POC Ionized Calcium (Misc Panel) 4.6, POC Creatinine (Misc Panel) 1.0, POC Hematocrit (Misc Panel) 55.0H 01/29/20 10:10: POC Troponin I (Misc) 0.02 01/29/20 10:18: Urine Color YELLOW, Urine Appearance HAZY, Urine pH 5.0, Urine Specific [place] 1.017, Urine Protein NEGATIVE, Urine Glucose (Auto)(UA) 1+H, Urine Ketones (Auto) NEGATIVE, Urine Blood NEGATIVE, Urine Nitrite NEGATIVE, Urine Bilirubin NEGATIVE, Urine Urobilinogen 0.2, Urine Leukocyte Esterase (Auto) 1+H, Urine WBC (Auto) 9H, Urine RBC (Auto) 2, Urine Hyaline Casts (Auto) 0, Urine Bacteria (Auto) NEGATIVE, Urine Squamous Epithelial Cells 0, Urine Sperm (Auto) CBC/BMP Laboratory Tests 01/29/20 09:49 Microbiology Microbiology 01/29/20 Respiratory Virus Panel (PCR) ([facility]) - Final, Complete 01/29/20 Blood Culture, Received Pending 01/29/20 Blood Culture, Received Pending Assessment/Plan Patient is 84 years old male with past medical history of COPD, coronary artery diseases, coronary artery bypass graft (CABG), follows with Dr. Salcedo, atrial fibrillation with pacemaker placement,pericardial window, CAD syncopal episode, presents to the emergency room with fever and chills. Patient stated that in the morning he started feeling chills and weakness. He denied any increased cough or sputum production. In ER she was found to have leukocytosis of 11.8, lactic acid 2.4, negative troponin. Vital signs pertinent for fever of 101.3 and tachypnea. Chest x-ray showed Patchy right perihilar opacities suggested which may reflect early infiltrates Problems (1) Sepsis Status: Acute Problem Text: Patient has leukocytosis, tachypnea, lactic acidosis, fever of 101.3 Chest x-ray showed patchy right perihilar opacities suggested which may reflect early infiltrates Will proceed with CT chest Started cefepime IV, in August 2019 sputum was positive for pseudomonas aeruginosa Incentive spirometry Inhalers (2) Afib Status: Chronic Problem Text: Continue oral targeted anticoagulation Heart rate is under control (3) HTN (hypertension) Status: Chronic Problem Text: General home meds (4) Hypoxia Status: Acute Problem Text: Most likely secondary to acute respiratory distress COPD exacerbation versus pneumonia Will proceed with CT chest Plan / VTE VTE Prophylaxis Ordered?: Yes STEPHANIE DAS DO Jan 29, 2020 12:14
[2020-01-29] MEDS ORDERED: CEFEPIME HCL 1 GM in D5W MINI-BAG PLUS 50 ML IV ONE (12:15)
[2020-01-29] MEDS: NS 1,000 ML IV SCH (12:38)
--- NOTE | 2020-01-29 13:09 | REP ---
INDICATION: PNA. COMPARISON: Comparison CT study of the chest December 31, 2019.. TECHNIQUE: Helical scanning is acquired. 3 mm axial images are re-formatted. Coronal and sagittal MPR and coronal MIP images are generated. CT contrast dose is 75 mL of intravenous Isovue 370. FINDINGS: There is a fairly large new heterogeneous infiltrate in the posterior segment of the right upper lobe with multiple interspersed cystic spaces consistent with a a necrotizing pneumonia. This was not apparent on December 31, 2019. Emphysematous changes are noted throughout the upper lobes and to a lesser extent in the lower lobes. There is dependent subsegmental atelectasis and some linear fibrosis in the lower lobes bilaterally unchanged. No pleural or pericardial effusion is seen. A pacemaker is seen in the right heart which is dilated. There is myocardial thinning and myocardial calcification consistent with an old PA in the anterior wall of the left ventricle. The left ventricle is somewhat dilated as well. Extensive coronary artery vascular calcification is seen. Median sternotomy wires are noted. There is some mild mural thickening and air in the esophagus question reflux esophagitis. A small sliding-type hiatal hernia is noted. No adrenal lesion is seen. No hilar or mediastinal mass or adenopathy is seen. No bony destructive lesion is seen. IMPRESSION: New necrotizing pneumonia infiltrate posterior segment right upper lobe. <Electronically signed by Moshen Ramirez > 01/29/20 0718
[2020-01-29] MEDS ORDERED: ASPI81TA26 PO (13:44)
--- NOTE | 2020-01-29 14:03 | ECGEPIP ---
[facility] - ED Test Date: 2020-01-29 Pat Name: ALVIN ABILEY Department: Room: - Gender: Male [employer] Super[employer]: : [id number] Requested By: RUBIA KYLE Order Number: [id number] Reading MD: Patrica Tesfaye Measurements Intervals [place] Rate: 74 P: 55 TN: 148 QRS: -52 QRSD: 145 T: 38 QT: 391 QTc: 436 Interpretive Statements SINUS RHYTHM WITH OCCASIONAL SUPRAVENTRICULAR PREMATURE COMPLEXES RIGHT BUNDLE BRANCH BLOCK LEFT ANTERIOR FASCICULAR BLOCK SIMILAR 05/16/19 Electronically Signed on 01-29-2020 14:03:10 EST by Patrica Tesfaye
[2020-01-29] MEDS ORDERED: NITROGLYCERIN 0.4 MG SUBL TABLET SL PRN (16:00)
[2020-01-29] MEDS ORDERED: ALBUTEROL 90 MCG/ACT 8GM HFA INHALER INH PRN (16:00)
[2020-01-29] MEDS: SYMBICORT 160/4.5MCG INHALER 6GM INH SCH (19:05)
[2020-01-29] MEDS: APIXABAN 5 MG TAB (ELIQUIS) PO SCH (20:31)
[2020-01-29] MEDS: ATORVASTATIN 20 MG TAB PO SCH (20:31)
[2020-01-29] MEDS: THIAMINE 100 MG TAB PO SCH (20:31)
[2020-01-29] MEDS: CEFEPIME HCL 1 GM in D5W MINI-BAG PLUS 50 ML IV SCH (20:32)
[2020-01-29 22:00] VITALS: BP 124/63
[2020-01-30] MEDS: NS 1,000 ML IV SCH ×2 (02:27→04:55)
[2020-01-30] MEDS: CEFEPIME HCL 1 GM in D5W MINI-BAG PLUS 50 ML IV SCH ×3 (04:03→20:31)
[2020-01-30 06:00] VITALS: BP 122/58
[2020-01-30 06:39] LABS: HEMATOCRIT 43.3 % (42.0-52.0); MEAN CORPUSCULAR HEMOGLOBIN 31.3 pg (27.0-33.0); MEAN CORPUSCULAR HGB CONC 31.2 g/dl (32.0-36.5); MEAN CORPUSCULAR VOLUME 100.2 fl (80.0-96.0); PLATELET COUNT, AUTOMATED 141 10^3/uL (150-450); RED BLOOD COUNT 4.32 10^6/uL (4.30-6.10); WHITE BLOOD COUNT 8.4 10^3/uL (4.0-10.0)
[2020-01-30 06:58] LABS: BLOOD UREA NITROGEN 11 MG/DL (7-18); CALCIUM LEVEL 8.4 MG/DL (8.8-10.2); CARBON DIOXIDE LEVEL 28 MEQ/L (21-32); CHLORIDE LEVEL 105 MEQ/L (98-107); CREATININE FOR GFR 0.85 MG/DL (0.70-1.30); GLOMERULAR FILTRATION RATE > 60.0 (>35); GLUCOSE, FASTING 125 MG/DL (70-100); POTASSIUM SERUM 4.3 MEQ/L (3.5-5.1); SODIUM LEVEL 137 MEQ/L (136-145)
[2020-01-30 07:02] LABS: HEMOGLOBIN 13.5 g/dl (13.5-17.5)
[2020-01-30] MEDS: SYMBICORT 160/4.5MCG INHALER 6GM INH SCH ×2 (07:31→19:42)
[2020-01-30] MEDS: APIXABAN 5 MG TAB (ELIQUIS) PO SCH ×2 (08:12→20:31)
[2020-01-30] MEDS: OMEPRAZOLE 20 MG CAP PO SCH (08:12)
[2020-01-30] MEDS: LevoFLOXacin IV 500 MG in IV 1 EA IV SCH (09:47)
[2020-01-30] MEDS: BISACODYL 5 MG TAB PO SCH (09:47)
[2020-01-30 14:00] VITALS: BP 125/64
--- NOTE | 2020-01-30 15:26 | IPNPDOC ---
Text Note Date of Service The patient was seen on 01/30/20. NOTE Subjective: No any acute events overnight. Patient denied fever, chills, nausea, vomiting, diarrhea or dysuria Objective: GENERAL APPEARANCE: NAD HEENT: no scleral icterus, no JVD, EOMI CARDIOVASCULAR: Irregularly irregular LUNGS: Bilateral rales with mild crackles ABDOMEN: soft & not tender w palpitation MUSCULOSKELETAL: no cyanosis, no swelling INTEGUMENT: no generalized palor NEUROLOGICAL: cranial nerve function from 2-12 intact intact, follows commands, speech not dysarthric Assessment/Plan Patient is 84 years old male with past medical history of COPD, coronary artery diseases, coronary artery bypass graft (CABG), follows with Dr. Salcedo, atrial fibrillation with pacemaker placement,pericardial window, CAD syncopal episode, presents to the emergency room with fever and chills. Patient stated that in the morning he started feeling chills and weakness. He denied any increased cough or sputum production. In ER she was found to have leukocytosis of 11.8, lactic acid 2.4, negative troponin. Vital signs pertinent for fever of 101.3 and tachypnea. Chest x-ray showed Patchy right perihilar opacities suggested which may reflect early infiltrates Problems (1) Sepsis Resolved Patient had leukocytosis, tachypnea, lactic acidosis, fever of 101.[address] chest There is a fairly large new heterogeneous infiltrate in the posterior segment of the right upper lobe with multiple interspersed cystic spaces consistent with a a necrotizing pneumonia. This was not apparent on December 31, 2019. Emphysematous changes are noted throughout the upper lobes and to a lesser extent in the lower lobes. There is dependent subsegmental atelectasis and some linear fibrosis in the lower lobes bilaterally unchanged c/w cefepime IV, in August 2019 sputum was positive for pseudomonas aeruginosa Levofloxacin added Incentive spirometry Inhalers Community acquired pneumonia See above Afib Continue oral targeted anticoagulation Heart rate is under control HTN (hypertension) General home meds Hypoxia Resolved Most likely secondary to acute respiratory distress VS,Fishbone, I+O VS, Fishbone, I+O Laboratory Tests 01/30/20 06:09 Vital Signs Date Time Temp Pulse Resp B/P (MAP) Pulse Ox O2 Delivery O2 Flow Rate FiO2 01/30/20 14:00 97.4 69 16 125/64 (84) 92 Room Air 01/30/20 09:00 1.0 I&O- Last 24 Hours up to 6 AM 01/30/20 06:00 Intake Total 2270 ml Output Total 2000 ml Balance 270 ml STEPHANIE DAS DO Jan 30, 2020 15:26
[2020-01-30] MEDS: THIAMINE 100 MG TAB PO SCH (20:31)
[2020-01-30] MEDS: ATORVASTATIN 20 MG TAB PO SCH (20:31)
[2020-01-30 22:00] VITALS: BP 122/64
[2020-01-31] MEDS: CEFEPIME HCL 1 GM in D5W MINI-BAG PLUS 50 ML IV SCH (05:16)
[2020-01-31 06:00] VITALS: BP 118/66
[2020-01-31] MEDS: SYMBICORT 160/4.5MCG INHALER 6GM INH SCH (08:13)
[2020-01-31 08:51] LABS: BASO % 0.1 % (0.0-1.0); EOS # 0.3 10^3/uL (0.0-0.5); EOS % 3.9 % (0.0-3.0); HEMOGLOBIN 14.4 g/dl (13.5-17.5); LYMPH # 1.8 10^3/uL (1.5-5.0); LYMPH % 21.7 % (24.0-44.0); MEAN CORPUSCULAR HEMOGLOBIN 32.4 pg (27.0-33.0); MEAN CORPUSCULAR HGB CONC 32.7 g/dl (32.0-36.5); MEAN CORPUSCULAR VOLUME 99.1 fl (80.0-96.0); MONO # 0.5 10^3/uL (0.0-0.8); MONO % 6.1 % (0.0-5.0); NEUTROPHILS # 5.6 10^3/uL (1.5-8.5); NEUTROPHILS % 67.8 % (36.0-66.0); PLATELET COUNT, AUTOMATED 160 10^3/uL (150-450); RED BLOOD COUNT 4.44 10^6/uL (4.30-6.10); WHITE BLOOD COUNT 8.3 10^3/uL (4.0-10.0)
[2020-01-31] MEDS: APIXABAN 5 MG TAB (ELIQUIS) PO SCH (09:20)
[2020-01-31] MEDS: BISACODYL 5 MG TAB PO SCH (09:20)
[2020-01-31] MEDS: OMEPRAZOLE 20 MG CAP PO SCH (09:20)
[2020-01-31] MEDS: LevoFLOXacin IV 500 MG in IV 1 EA IV SCH (09:20)
[2020-01-31 09:23] LABS: BLOOD UREA NITROGEN 13 MG/DL (7-18); CALCIUM LEVEL 8.7 MG/DL (8.8-10.2); CARBON DIOXIDE LEVEL 26 MEQ/L (21-32); CHLORIDE LEVEL 103 MEQ/L (98-107); CREATININE FOR GFR 0.98 MG/DL (0.70-1.30); GLOMERULAR FILTRATION RATE > 60.0 (>35); GLUCOSE, FASTING 177 MG/DL (70-100); POTASSIUM SERUM 4.5 MEQ/L (3.5-5.1); SODIUM LEVEL 134 MEQ/L (136-145)
[2020-01-31] MEDS ORDERED: LEVO500T3 PO (11:47)
[2020-01-31] MEDS ORDERED: ROBI1CAP PO (11:48)
--- NOTE | 2020-01-31 18:00 | DS.PDOC ---
Discharge Summary General Date of Admission Jan 29, 2020 at 11:59 Date of Discharge 01/31/20 Discharge Summary PROCEDURES PERFORMED DURING STAY: [None]. ADMITTING DIAGNOSES: Sepsis Afib Hypoxia HTN (hypertension) Community acquired pneumonia DISCHARGE DIAGNOSES: Sepsis Afib Hypoxia HTN (hypertension) Community acquired pneumonia COMPLICATIONS/CHIEF COMPLAINT: Sepsis. HISTORY OF PRESENT ILLNESS: Patient is 84 years old male with past medical history of COPD, coronary artery diseases, coronary artery bypass graft (CABG), follows with Dr. Salcedo, atrial fibrillation with pacemaker placement,pericardial window, CAD syncopal episode, presents to the emergency room with fever and chills. Patient stated that in the morning he started feelin g chills and weakness. He denied any increased cough or sputum production. In ER she was found to have leukocytosis of 11.8, lactic acid 2.4, negative troponin. Vital signs pertinent for fever of 101.3 and tachypnea. Chest x-ray showed Patchy right perihilar opacities suggested which may reflect early infiltrates HOSPITAL COURSE: During hospital stay following showed addressed (1) Sepsis Resolved Patient had leukocytosis, tachypnea, lactic acidosis, fever of 101.[address] chest There is a fairly large new heterogeneous infiltrate in the posterior segment of the right upper lobe with multiple interspersed cystic spaces consistent with a a necrotizing pneumonia. This was not apparent on December 31, 2019. Emphysematous changes are noted throughout the upper lobes and to a lesser extent in the lower lobes. There is dependent subsegmental atelectasis and some linear fibrosis in the lower lobes bilaterally unchanged c/w cefepime IV, in August 2019 sputum was positive for pseudomonas aeruginosa Levofloxacin added Incentive spirometry Inhalers Community acquired pneumonia See above Afib Continue oral targeted anticoagulation Heart rate is under control HTN (hypertension) General home meds Hypoxia Resolved Most likely secondary to acute respiratory distress DISCHARGE MEDICATIONS: Please see below. ALLERGIES: Please see below. PHYSICAL EXAMINATION ON DISCHARGE: VITAL SIGNS: Please see below. GENERAL APPEARANCE: NAD HEENT: no scleral icterus, no JVD, EOMI CARDIOVASCULAR: Irregularly irregular LUNGS: Bilateral rales with mild crackles ABDOMEN: soft & not tender w palpitation MUSCULOSKELETAL: no cyanosis, no swelling INTEGUMENT: no generalized palor NEUROLOGICAL: cranial nerve function from 2-12 intact intact, follows commands, speech not dysarthric LABORATORY DATA: Please see below. IMAGING: See above PROGNOSIS: Fair ACTIVITY: [As tolerated]. DIET: Cardiac DISCHARGE PLAN: Home DISPOSITION: 01 Home, Self-Care. DISCHARGE INSTRUCTIONS: Continue incentive spirometry ITEMS TO FOLLOWUP ON ON OUTPATIENT: Follow-up with PCP in one week DISCHARGE CONDITION: [Stable]. TIME SPENT ON DISCHARGE: Greater than 40 minutes. Vital Signs/I&Os Vital Signs Date Time Temp Pulse Resp B/P (MAP) Pulse Ox O2 Delivery O2 Flow Rate FiO2 01/31/20 06:00 98.1 77 18 118/66 (83) 94 Room Air 01/30/20 09:00 1.0 I&O- Last 24 Hours up to 6 AM 01/31/20 06:00 Intake Total 2900 ml Output Total 2800 ml Balance 100 ml Laboratory Data Labs 24H Laboratory Tests 2 01/31/20 08:40: Immature Granulocyte % (Auto) 0.4, Neutrophils (%) (Auto) 67.8H, Lymphocytes (%) (Auto) 21.7L, Monocytes (%) (Auto) 6.1H, Eosinophils (%) (Auto) 3.9H, Basophils (%) (Auto) 0.1, Neutrophils # (Auto) 5.6, Lymphocytes # (Auto) 1.8, Monocytes # (Auto) 0.5, Eosinophils # (Auto) 0.3, Basophils # (Auto) 0.0, Nucleated Red Blood Cells % (auto) 0.0, Anion Gap 5L, Glomerular Filtration Rate > 60.0, Calcium Level 8.7L CBC/BMP Laboratory Tests 01/31/20 08:40 Microbiology Microbiology 01/29/20 Respiratory Virus Panel (PCR) ([facility]) - Final, Complete 01/29/20 Blood Culture - Preliminary, Resulted No Growth after 48 hours. All Specime... 01/29/20 Blood Culture - Preliminary, Resulted No Growth after 48 hours. All Specime... Discharge Medications Scheduled Apixaban (Eliquis) 5 Mg Tablet, 5 MG PO BID, (Reported) Aspirin (Aspirin EC) 81 Mg Tablet.dr, 81 MG PO QHS, (Reported) Atorvastatin Calcium (Atorvastatin Calcium) 40 Mg Tablet, 40 MG PO QHS, (Reported) Fluticasone/Umeclidin/Vilanter (Trelegy Ellipta 100-62.5-25) 1 Each Blst.w.dev, 1 PUFF INH DAILY, (Reported) Guaifenesin/Dextromethorphan (Robitussin Scrwi-Pgkgj-Okfu Dm) 1 Each Capsule, 1 CAP PO QID Levofloxacin (Levofloxacin) 500 Mg Tablet, 500 MG PO DAILY Multivitamin (Multivitamins) 1 Each Capsule, 1 CAP PO QHS, (Reported) Omeprazole (Omeprazole) 20 Mg Capsule.dr, 20 MG PO DAILY, (Reported) Thiamine Hcl (Vitamin B-1) 100 Mg Tablet, 100 MG PO QHS, (Reported) Scheduled PRN Acetaminophen (Acetaminophen) 500 Mg Tablet, 1,000 MG PO Q6H PRN for PAIN, (Reported) Albuterol Sulfate (Proair Hfa) 8.5 Gm Hfa.aer.ad, 2 PUFF INH Q4H PRN for SOB/WHEEZING, (Reported) Nitroglycerin (Nitroglycerin) 0.4 Mg Tab.subl, 0.4 MG SL NITRO PRN for CHEST PAIN, (Reported) Allergies Coded Allergies: TAPE (Unverified Adverse Reaction, Intermediate, CAUSED REDNESS AND SKIN TEARS, 10/18/18) STEPHANIE DAS DO Jan 31, 2020 18:00
== END 2020-01-31 13:48 | disposition home or self-care (01) | DRG 871 ==
LOC: M ED 09:03 → M ED INP 11:59 → ENRESERVDT 12:26 → ENRESERVTM 12:26 → M MSPAV 14:48
PROVIDERS: ADMIT Internal Medicine; ATTEND Internal Medicine
DX: A41.9 Sepsis, unspecified organism (principal); J85.0 Gangrene and necrosis of lung; J18.9 Pneumonia, unspecified organism; E87.2 Acidosis; J44.1 Chronic obstructive pulmonary disease with (acute) exacerbation; J44.0 Chronic obstructive pulmonary disease with (acute) lower respiratory infection; I48.20 Chronic atrial fibrillation, unspecified; I10 Essential (primary) hypertension; I25.10 Atherosclerotic heart disease of native coronary artery without angina pectoris; Z95.1 Presence of aortocoronary bypass graft; Z95.0 Presence of cardiac pacemaker; Z79.82 Long term (current) use of aspirin; Z79.899 Other long term (current) drug therapy; Z87.891 Personal history of nicotine dependence; K21.9 Gastro-esophageal reflux disease without esophagitis

== ENCOUNTER → 2020-02-25 | Outpatient (CLI) | payer MEDICARE ==
[~2020-02-25] MED LIST changes: +ASPI81TA26 PO; +LEVO500T3 PO; +ROBI1CAP PO; +TREL1AER INH
--- NOTE | 2020-02-26 05:48 | REP ---
INDICATION: PNEUMONIA COMPARISON: 01/29/2020 TECHNIQUE: PA and lateral. FINDINGS: The mediastinum and cardiac silhouette are stable. Evidence for prior sternotomy, CABG, and pacemaker again noted. The lung churchill demonstrate chronic appearing changes without acute consolidation, effusion, or pneumothorax. The skeletal structures are intact and normal. Previously identified necrotizing pneumonia in the right lung on CT dated 01/29/2020 is not definitively visible by x-ray. IMPRESSION: Chronic stable changes. Previously noted necrotizing pneumonia by CT dated 01/29/2020 is not identifiable by x-ray, and follow-up should be based on CT recommendations. <Electronically signed by Bryant Hassan > 02/26/20 [id number]
== END ==
LOC: M RAD 13:17
PROVIDERS: ATTEND Internal Medicine
DX: Z95.1 Presence of aortocoronary bypass graft (principal); Z95.0 Presence of cardiac pacemaker; Z87.01 Personal history of pneumonia (recurrent)

== ENCOUNTER 2020-07-12 16:40 | Emergency (ER) | payer MEDICARE ==
[~2020-07-12] VITALS: Ht 170.2 cm; Wt 86.6 kg
[2020-07-12 16:42] VITALS: BP 133/61
[2020-07-12 17:42] LABS: BASO % 0.5 % (0.0-1.0); EOS # 0.4 10^3/uL (0.0-0.5); EOS % 5.3 % (0.0-3.0); HEMATOCRIT 50.2 % (42.0-52.0); HEMOGLOBIN 16.2 g/dl (13.5-17.5); LYMPH % 30.7 % (24.0-44.0); MEAN CORPUSCULAR HGB CONC 32.3 g/dl (32.0-36.5); MEAN CORPUSCULAR VOLUME 102.2 fl (80.0-96.0); MONO # 0.5 10^3/uL (0.0-0.8); MONO % 8.1 % (2.0-8.0); NEUTROPHILS # 3.6 10^3/uL (1.5-8.5); NEUTROPHILS % 55.1 % (36.0-66.0); PLATELET COUNT, AUTOMATED 142 10^3/uL (150-450); RED BLOOD COUNT 4.91 10^6/uL (4.30-6.10); WHITE BLOOD COUNT 6.6 10^3/uL (4.0-10.0)
[2020-07-12 17:57] LABS: BLOOD UREA NITROGEN 14 MG/DL (7-18); CALCIUM LEVEL 9.3 MG/DL (8.8-10.2); CARBON DIOXIDE LEVEL 29 MEQ/L (21-32); CHLORIDE LEVEL 105 MEQ/L (98-107); CREATININE FOR GFR 0.93 MG/DL (0.70-1.30); GLOMERULAR FILTRATION RATE > 60.0 (>35); GLUCOSE, FASTING 137 MG/DL (70-100); POTASSIUM SERUM 4.3 MEQ/L (3.5-5.1); SODIUM LEVEL 139 MEQ/L (136-145)
[2020-07-12 18:13] LABS: ERYTHROCYTE SEDIMENTATION RATE 2 mm/hr (0-20)
[2020-07-12] MEDS ORDERED: VOLT1GEL15 TOP (19:22)
== END 2020-07-12 19:38 | disposition home or self-care (01) ==
LOC: M ED 16:40
DX: M70.21 Olecranon bursitis, right elbow (principal); I11.0 Hypertensive heart disease with heart failure; I25.2 Old myocardial infarction; J44.9 Chronic obstructive pulmonary disease, unspecified; K21.9 Gastro-esophageal reflux disease without esophagitis; F17.200 Nicotine dependence, unspecified, uncomplicated; Z79.899 Other long term (current) drug therapy; Z79.01 Long term (current) use of anticoagulants; Z79.82 Long term (current) use of aspirin

== ENCOUNTER → 2020-08-25 | Outpatient (REF) | payer MEDICARE ==
[~2020-08-25] MED LIST changes: +VOLT1GEL15 TOP
== END ==
LOC: M LAB REF 13:16
PROVIDERS: ATTEND Internal Medicine Pulmonary Disease
DX: J44.9 Chronic obstructive pulmonary disease, unspecified (principal)

== ENCOUNTER 2020-09-16 20:20 | Observation (INO) | payer MEDICARE ==
[~2020-09-16] VITALS: Ht 165.1 cm; Wt 85.0 kg
[~2020-09-16 20:20] MED LIST changes: -DOXY100C37 PO; +DOXY1CAP62 PO
[2020-09-16] MEDS ORDERED: methylPREDNISolone 125MG 2ML VIAL IV ONE (20:50)
[2020-09-16] MEDS ORDERED: ACETAMINOPHEN TAB 650MG DOSE (2X325MG) PO ONE (20:50)
[2020-09-16] MEDS ORDERED: COMBIVENT RESPIMAT 100-20MCG INHALER 4GM INH ONE (20:50)
[2020-09-16 21:11] LABS: ABG BASE EXCESS -0.2 (-2.0-2.0); ABG HCO3 23.6 MEQ/L (22.0-26.0); ABG O2 SATURATION 87.7 % (95.0-99.0); ABG PARTIAL PRESSURE CO2 36.6 mmHg (35.0-45.0); ABG TOTAL CO2 24.8 MEQ/L (23.0-31.0); ABG pH (ARTERIAL) 7.428 UNITS (7.350-7.450)
[2020-09-16 21:12] LABS: ABG PARTIAL PRESSURE O2 49.9 mmHg (75.0-100.0)
--- NOTE | 2020-09-16 21:24 | REPVR ---
PROCEDURE INFORMATION: Exam: XR Chest Exam date and time: 09/16/2020 9:01 PM Age: 85 years old Clinical indication: Chest wall pain; Additional info: Chest pain TECHNIQUE: Imaging protocol: XR of the chest. Views: 1 view. COMPARISON: CR Chest, 2 view PA, Lat 02/25/2020 1:25 PM FINDINGS: Tubes, catheters and devices: Dual chamber cardiac pacer with intact pacer wires demonstrated. Lungs: Increased parenchymal markings demonstrated at both lung bases which appear to be chronic and grossly unchanged in comparison to the prior study. Pleural spaces: Unremarkable. No pleural effusion. No pneumothorax. Heart/Mediastinum: Unremarkable. Moderate cardiomegaly. Status post sternotomy. Bones/joints: Status post sternotomy. IMPRESSION: 1. No acute findings. 2. Moderate cardiomegaly. Status post CABG. Electronically signed by: Jaydon Corbin On 09/16/2020 21:23:58 PM
[2020-09-16 21:35] LABS: BASO % 0.2 % (0.0-1.0); EOS # 0.1 10^3/uL (0.0-0.5); EOS % 0.9 % (0.0-3.0); HEMATOCRIT 48.5 % (42.0-52.0); HEMOGLOBIN 15.7 g/dl (13.5-17.5); LYMPH # 1.4 10^3/uL (1.5-5.0); MEAN CORPUSCULAR HEMOGLOBIN 33.5 pg (27.0-33.0); MEAN CORPUSCULAR HGB CONC 32.4 g/dl (32.0-36.5); MEAN CORPUSCULAR VOLUME 103.6 fl (80.0-96.0); MONO # 0.6 10^3/uL (0.0-0.8); MONO % 6.1 % (2.0-8.0); NEUTROPHILS # 7.2 10^3/uL (1.5-8.5); NEUTROPHILS % 77.5 % (36.0-66.0); RED BLOOD COUNT 4.68 10^6/uL (4.30-6.10); WHITE BLOOD COUNT 9.3 10^3/uL (4.0-10.0)
[2020-09-16 22:07] LABS: PLATELET COUNT, AUTOMATED 91 10^3/uL (150-450)
[2020-09-16 22:23] LABS: ALBUMIN 3.6 GM/DL (3.2-5.2); ALT/SGPT 30 U/L (12-78); BILIRUBIN,DIRECT 0.1 MG/DL (0.0-0.2); BILIRUBIN,TOTAL 0.5 MG/DL (0.2-1.0); BLOOD UREA NITROGEN 9 MG/DL (7-18); CALCIUM LEVEL 8.5 MG/DL (8.8-10.2); CARBON DIOXIDE LEVEL 26 MEQ/L (21-32); CHLORIDE LEVEL 107 MEQ/L (98-107); CK-MB VALUE MASS 2.6 NG/ML (<3.6); CPK CREATINE PHOSPHOKINASE 151 U/L (39-308); CREATININE FOR GFR 0.79 MG/DL (0.70-1.30); FREE T4 0.94 NG/DL (0.76-1.46); GLOMERULAR FILTRATION RATE > 60.0 (>35); GLUCOSE, FASTING 138 MG/DL (70-100); MB/CK RELATIVE INDEX 1.72 (< OR =4); NT-PRO BNP 375 PG/ML (<450); POTASSIUM SERUM 4.4 MEQ/L (3.5-5.1); SODIUM LEVEL 141 MEQ/L (136-145); THYROID STIMULATING HORMONE 0.848 uIU/ML (0.358-3.740); TOTAL PROTEIN 7.1 GM/DL (6.4-8.2); TROPONIN I < 0.02 NG/ML (< 0.10)
[2020-09-16] MEDS ORDERED: IPRATROPIUM 0.5MG/ALBUTEROL 2.5MG INH SOL UD 3ML (DUONEB) NEB ONE ×2 (22:50→23:20)
[2020-09-16] MEDS ORDERED: ISOVUE-370 76% 100ML VIAL As Ordered ONE (23:08)
[2020-09-16] MEDS ORDERED: IBUPROFEN 600MG TAB PO ONE (23:20)
--- NOTE | 2020-09-17 01:01 | REPVR ---
PROCEDURE INFORMATION: Exam: CTA Chest With Contrast Exam date and time: 09/16/2020 11:36 PM Age: 85 years old Clinical indication: Shortness of breath and other: Hypoxia; Additional info: SOB hypoxia TECHNIQUE: Imaging protocol: Computed tomographic angiography of the chest with contrast. 3D rendering (Not supervised by radiologist): MIP and/or 3D reconstructed images were created by the technologist. Radiation optimization: All CT scans at this facility use at least one of these dose optimization techniques: automated exposure control; mA and/or kV adjustment per patient size (includes targeted exams where dose is matched to clinical indication); or iterative reconstruction. Contrast material: ISOVUE 370; Contrast volume: 75 ml; Contrast route: INTRAVENOUS (IV); COMPARISON: CT Chest with contrast 01/29/2020 12:14 PM Study limitations: Diagnostic evaluation is slightly compromised by motion related misregistration artifact. FINDINGS: PULMONARY ARTERIES: The pulmonary trunk at 2.7 cm is within normal range. Enhancement within the pulmonary arteries is preserved bilaterally through the distal segmental levels, without evidence of acute appearing occlusive pulmonary emboli. Beyond the distal segmental levels evaluation of some smaller distal branches is compromised by misregistration artifacts. HEART AND AORTA: Cardiac size is borderline. There is slight prominence of right-sided chambers compared to left. There is slight deviation of the interventricular septum towards the left ventricle. These findings are suggestive of right heart strain. No tricuspid regurgitation of contrast seen into the IVC. Pacemaker leads are noted in the right heart. No pericardial effusion. There is some calcification at the aortic valve. Coronary arterial calcifications noted. The thoracic aorta is not aneurysmal. No thoracic aortic dissection is seen. There is atherosclerotic disease. Calcified plaque at the proximal left subclavian artery could be hemodynamically significant. MEDIASTINUM: No mediastinal gas. The visualized thyroid gland is homogeneous. No mediastinal hematoma. Mediastinal and hilar lymph nodes are noted but not appearing pathologic by size criteria. There is a small gas containing hiatal hernia. The esophagus appears moderately thick walled from the level of the alejandro to the gastroesophageal junction. This is slightly greater than on the prior study. Clinical correlation for esophagitis. Consider dedicated evaluation of the esophagus non emergently with endoscopy or esophagram. LUNGS: The lungs are symmetric in expansion. There is confluent patchy airspace infiltrate within the left lower lobe, greater than on the prior study. This may be secondary to atelectasis and pneumonia. There appears to be lower lobe bronchial thickening and bronchial opacification, suggesting bronchitis bilaterally. Previously seen right upper lobe pulmonary infiltrate has resolved. Scattered emphysematous changes and parenchymal fibrotic changes are noted. There is a new 2.8 cm focal opacity within the right upper lobe, likely acute pneumonitis. A tiny area of a few mildly confluent ground-glass opacity seen within the left upper lobe, new compared to the prior study likely representing minimal pneumonitis. For these findings, follow-up is advised in 3 months to confirm resolution. Mild dependent atelectasis seen at the right lung base. There is no pneumothorax or pleural effusion. UPPER ABDOMEN: No free air or free fluid within the visualized upper most abdomen. MSK AND BODY WALL: Median sternotomy changes noted. Mild degenerative changes of the thoracic spine and bony thorax. No acute fracture. Left anterior chest wall implanted pacer device noted. IMPRESSION: No evidence for acute pulmonary embolus through the distal segmental levels. Scattered pulmonary infiltrates, greatest within the left lower lobe worrisome for acute infiltrate/pneumonitis. Differential and recommendations discussed above. Emphysematous changes and parenchymal fibrotic changes noted. Lower lobe bronchitis. Thick-walled esophagus to be correlated for esophagitis. Findings discussed above in detail. Electronically signed by: Ezekiel Mondragon On 09/17/2020 01:01:14 AM
[2020-09-17] MEDS ORDERED: AZITHROMYCIN INJ 500 MG, VIAL MATE ADAPTER 1 EACH in NS 250 ML IV ONE (01:10)
[2020-09-17] MEDS ORDERED: cefTRIAXone SOD 2 GM in D5W MINI-BAG PLUS 50 ML IV ONE (01:10)
[2020-09-17] MEDS ORDERED: FLUT1BLS8 IH (01:29)
[2020-09-17] MEDS ORDERED: MULT-90 PO (01:29)
[2020-09-17] MEDS ORDERED: IPRA0.00 NEB (01:31)
[2020-09-17] MEDS ORDERED: MOM 30ML SUSPENSION UDC PO PRN (02:50)
[2020-09-17] MEDS ORDERED: ALBUTEROL 90 MCG/ACT 8GM HFA INHALER INH PRN (02:50)
[2020-09-17] MEDS ORDERED: IPRATROPIUM 0.5MG/ALBUTEROL 2.5MG INH SOL UD 3ML (DUONEB) NEB PRN (02:50)
[2020-09-17] MEDS ORDERED: ACETAMINOPHEN TAB 650MG DOSE (2X325MG) PO PRN (02:50)
[2020-09-17] MEDS ORDERED: NITROGLYCERIN 0.4 MG SUBL TABLET SL PRN (02:50)
[2020-09-17] MEDS ORDERED: MAALOX 30 ML SUSP *UDC PO PRN (02:50)
--- NOTE | 2020-09-17 03:15 | HPEPDOC ---
[facility] Medical History & Physical Date of Admission Sep 17, 2020 Date of Service: Sep 17, 2020 Attending Physician: CHAVA SALEH MD History and Physical CHIEF COMPLAINT: [85 y/o male c/o sob x3 days] HISTORY OF PRESENT ILLNESS: [This is a 85 y/o male with a pmh of COPD, CAD s/p CABG, CHF, a-fib s/p pacemaker and htn who presents to the ED with cc of increasing sob x3 days. Patient states that he was becoming increasing sob that was having impact on his adl's so decided to come to the hospital for evaluation and breathing treatments. As of my exam of pt, he states he is feeling much bet ter after duonebs tx and solumedrol. Patient denies fevers, chills, cough, chest tightness, chest pain, wheezing, abd pain, n/v/d/c. Patient found to have a pneumonia on CTA chest.] PAST MEDICAL HISTORY: 1. [See HPI PAST SURGICAL HISTORY: 1. [Tonsillectomy]. 2. [CABG]. 3. [Pericardial window]. SOCIAL HISTORY: Tobacco use:[Current pipe smoker] ETOH: [Denies] Illicit drug use: [Denies] FAMILY HISTORY: Reviewed - none pertinent ALLERGIES: Please see below. REVIEW OF SYSTEMS: CONSTITUTIONAL: [See HPI]. HEENT: [Denies uri sx]. CARDIOVASCULAR: [See HPI]. RESPIRATORY: [See HPI]. GASTROINTESTINAL: [See HPI]. GENITOURINARY: [Denies dysuria]. SKIN: [Denies rash]. MUSCULOSKELETAL: [Denies acute joint/back pain]. NEUROLOGICAL: [Denies syncope, paresthesias]. ENDOCRINE: [Denies hx of DM]. HEMATOLOGIC/LYMPHATIC: [Denies easy bruising]. HOME MEDICATIONS: Please see below. PHYSICAL EXAMINATION: VITAL SIGNS: Please see below. GENERAL APPEARANCE: [This is an 85 y/o male who does not appear to be in any respiratory distress.]. HEENT: [No mass or lesion. EOMI. No scleral icterus. Nares patent. Oral mucosa moist]. CARDIOVASCULAR: [Regular rate, rhythm. No murmurs, rubs, gallops]. LUNGS: [Decreased breath sounds b/l. No wheezing, crackles.]. ABDOMEN: [Soft, nontender]. MUSCULOSKELETAL: [No joint deformity]. EXTREMITIES: [No peripheral edema. no overlying skin changes. pulses intact]. NEUROLOGICAL: [Speech clear. A+Ox3. No focal deficits]. PSYCHIATRIC: [Mood and affect appear appropriate.]. LABORATORY DATA: See below. IMAGING: [CXR: FINDINGS: Tubes, catheters and devices: Dual chamber cardiac pacer with intact pacer wires demonstrated. Lungs: Increased parenchymal markings demonstrated at both lung bases which appear to be chronic and grossly unchanged in comparison to the prior study. Pleural spaces: Unremarkable. No pleural effusion. No pneumothorax. Heart/Mediastinum: Unremarkable. Moderate cardiomegaly. Status post sternotomy. Bones/joints: Status post sternotomy. IMPRESSION: 1. No acute findings. 2. Moderate cardiomegaly. Status post CABG. CTA Chest: Study limitations: Diagnostic evaluation is slightly compromised by motion related misregistration artifact. FINDINGS: PULMONARY ARTERIES: The pulmonary trunk at 2.7 cm is within normal range. Enhancement within the pulmonary arteries is preserved bilaterally through the distal segmental levels, without evidence of acute appearing occlusive pulmonary emboli. Beyond the distal segmental levels evaluation of some smaller distal branches is compromised by misregistration artifacts. HEART AND AORTA: Cardiac size is borderline. There is slight prominence of right-sided chambers compared to left. There is slight deviation of the interventricular septum towards the left ventricle. These findings are suggestive of right heart strain. No tricuspid regurgitation of contrast seen into the IVC. Pacemaker leads are noted in the right heart. No pericardial effusion. There is some calcification at the aortic valve. Coronary arterial calcifications noted. The thoracic aorta is not aneurysmal. No thoracic aortic dissection is seen. There is atherosclerotic disease. Calcified plaque at the proximal left subclavian artery could be hemodynamically significant. MEDIASTINUM: No mediastinal gas. The visualized thyroid gland is homogeneous. No mediastinal hematoma. Mediastinal and hilar lymph nodes are noted but not appearing pathologic by size criteria. There is a small gas containing hiatal hernia. The esophagus appears moderately thick walled from the level of the alejandro to the gastroesophageal junction. This is slightly greater than on the prior study. Clinical correlation for esophagitis. Consider dedicated evaluation of the esophagus non emergently with endoscopy or esophagram. LUNGS: The lungs are symmetric in expansion. There is confluent patchy airspace infiltrate within the left lower lobe, greater than on the prior study. This may be secondary to atelectasis and pneumonia. There appears to be lower lobe bronchial thickening and bronchial opacification, suggesting bronchitis bilaterally. Previously seen right upper lobe pulmonary infiltrate has resolved. Scattered emphysematous changes and parenchymal fibrotic changes are noted. There is a new 2.8 cm focal opacity within the right upper lobe, likely acute pneumonitis. A tiny area of a few mildly confluent ground-glass opacity seen within the left upper lobe, new compared to the prior study likely representing minimal pneumonitis. For these findings, follow-up is advised in 3 months to confirm resolution. Mild dependent atelectasis seen at the right lung base. There is no pneumothorax or pleural effusion. UPPER ABDOMEN: No free air or free fluid within the visualized upper most abdomen. MSK AND BODY WALL: Median sternotomy changes noted. Mild degenerative changes of the thoracic spine and bony thorax. No acute fracture. Left anterior chest wall implanted pacer device noted. IMPRESSION: No evidence for acute pulmonary embolus through the distal segmental levels. Scattered pulmonary infiltrates, greatest within the left lower lobe worrisome for acute infiltrate/pneumonitis. Differential and recommendations discussed above. Emphysematous changes and parenchymal fibrotic changes noted. Lower lobe bronchitis. Thick-walled esophagus to be correlated for esophagitis. ] MICROBIOLOGY: Please see below. ASSESSMENT: [This is a 85 y/o male with a pmh of COPD, CAD s/p CABG, CHF, a-fib s/p pacemaker and htn who presents to the ED with cc of increasing sob x3 days.]. . PLAN: 1. [SIRS 2/2 pneumonia - patient meets sirs criteria with fever of 101.2, hypoxia of 85, lung infiltrate - patient received azithromycin and rocephin in the ed - will switch to levaquin on the floor - tylenol for fevers - admit to med surg tele under obs for iv abx 2. COPD with possible exacerbation - Patient's sob more likely secondary to pneumonia - Patient's sob was mostly resolved by the time of my exam s/p solumedrol and combivent/duonebs treatment - continue duonebs on the floor - continue at home inhalers - supplemental o2 titrated to 88-92% 3. CAD - continue nitro, asa 4. A-fib - continue eliquis - tele 5. HLD - continue atorvastatin 6. GERD - continue omeprazole 7. Nicotine use - patch ordered DVT prophylaxis - eliquis]. Vital Signs Vital Signs Date Time Temp Pulse Resp B/P (MAP) Pulse Ox O2 Delivery O2 Flow Rate FiO2 09/17/20 02:00 98.6 75 18 125/65 (85) 88 09/16/20 21:00 Nasal Cannula 4.0 Laboratory Data Labs 24H Laboratory Tests 2 09/16/20 21:00: Blood Gas Bicarbonate Standard 24.0, Arterial Blood pH 7.428, Arterial Blood Partial Pressure CO2 36.6, Arterial Blood Partial Pressure O2 49.9*L, Arterial Blood Total CO2 24.8, Arterial Blood HCO3 23.6, Arterial Blood Base Excess -0.2, Arterial Blood Oxygen Saturation 87.7L 09/16/20 21:20: Immature Granulocyte % (Auto) 0.3, Neutrophils (%) (Auto) 77.5H, Lymphocytes (%) (Auto) 15.0L, Monocytes (%) (Auto) 6.1, Eosinophils (%) (Auto) 0.9, Basophils (%) (Auto) 0.2, Neutrophils # (Auto) 7.2, Lymphocytes # (Auto) 1.4L, Monocytes # (Auto) 0.6, Eosinophils # (Auto) 0.1, Basophils # (Auto) 0.0, Nucleated Red Blood Cells % (auto) 0.0, Immature Platelet Fraction 5.8, Anion Gap 8, Glomerular Filtration Rate > 60.0, Calcium Level 8.5L, Total Bilirubin 0.5, Direct Bilirubin 0.1, Aspartate Amino Transf (AST/SGOT) 27, Alanine Aminotransferase (ALT/SGPT) 30, Alkaline Phosphatase 67, Total Creatine Kinase 151, Creatine Kinase MB 2.6, Creatine Kinase MB Relative Index 1.72, Troponin I < 0.02, MC-Sat-H-Type Natriuretic Peptide 375, Total Protein 7.1, Albumin 3.6, Albumin/Globulin Ratio 1.0, Thyroid Stimulating Hormone (TSH) 0.848, Free Thyroxine 0.94 CBC/BMP Laboratory Tests 09/16/20 21:20 Microbiology Microbiology 09/16/20 Blood Culture, Received Pending 09/16/20 Blood Culture, Received Pending 09/16/20 Respiratory Virus Panel (PCR) ([facility]) - Final, Complete Human Rhinovirus/Enterovirus Home Medications Scheduled Apixaban (Eliquis) 5 Mg Tablet, 5 MG PO BID Aspirin (Aspirin EC) 81 Mg Tablet.dr, 81 MG PO QHS Atorvastatin Calcium (Atorvastatin Calcium) 40 Mg Tablet, 40 MG PO QHS Fluticasone/Umeclidin/Vilanter (Trelegy Ellipta 200-62.5-25) 200-62.5 Blst.w.dev, 1 EACH IH DAILY Ipratropium/Albuterol Sulfate (Iprat-Albut 0.5-3(2.5) mg/3 ml) 3 Ml Ampul.neb, 1 VIAL NEB BID Multivitamin (Multivitamin) 1 Each Tablet, 1 EACH PO QHS Omeprazole (Omeprazole) 20 Mg Capsule.dr, 20 MG PO DAILY Thiamine Hcl (Vitamin B-1) 100 Mg Tablet, 100 MG PO QHS Scheduled PRN Acetaminophen (Acetaminophen) 500 Mg Tablet, 1,000 MG PO Q6H PRN for PAIN Albuterol Sulfate (Proair Hfa) 8.5 Gm Hfa.aer.ad, 2 PUFF INH Q4H PRN for SOB/WHEEZING Nitroglycerin (Nitroglycerin) 0.4 Mg Tab.subl, 0.4 MG SL NITRO PRN for CHEST PAIN Allergies Coded Allergies: No Known Drug Allergies (Verified Allergy, Unknown, 07/12/20) A-FIB/CHADSVASC A-FIB History Current/History of A-Fib/PAF?: Yes Current PO Anticoag Therapy: Yes ELEONORA SELLERS Sep 17, 2020 03:15
[2020-09-17] MEDS: ASPIRIN 81MG ENTERIC TABLET PO SCH ×2 (05:51→21:00)
[2020-09-17] MEDS: LevoFLOXacin IV 750 MG in IV 1 EA IV SCH (05:52)
[2020-09-17] MEDS: THIAMINE 100 MG TAB PO SCH ×2 (05:52→21:00)
[2020-09-17] MEDS: ATORVASTATIN 20 MG TAB PO SCH ×2 (05:52→21:00)
[2020-09-17 06:00] VITALS: BP 115/60
[2020-09-17 07:05] VITALS: O2SAT 88
[2020-09-17] MEDS: ADVAIR HFA 115/21MCG INHALER INH SCH ×2 (07:21→19:46)
[2020-09-17] MEDS: DOCUSATE SODIUM 100MG CAPSULE PO SCH ×2 (07:44→21:00)
[2020-09-17] MEDS: APIXABAN 5 MG TAB (ELIQUIS) PO SCH ×2 (07:44→21:00)
[2020-09-17] MEDS: OMEPRAZOLE 20 MG CAP PO SCH (07:45)
[2020-09-17] MEDS: NICOTINE 14 MG/24 HR TRANSDERMAL TD SCH (07:45)
[2020-09-17] MEDS ORDERED: FLUTICASONE HFA 220 MCG 12 GM INHALER (FLOVENT) INH SCH (09:00)
[2020-09-17 10:00] VITALS: BP 111/59
[2020-09-17] MEDS: IPRATROPIUM 0.5MG/ALBUTEROL 2.5MG INH SOL UD 3ML (DUONEB) NEB SCH ×4 (12:35→23:49)
[2020-09-17] MEDS ORDERED: predniSONE 20 MG TAB PO ONE (12:45)
--- NOTE | 2020-09-17 13:20 | IPNPDOC ---
Subjective Date Seen The patient was seen on 09/17/20. Subjective Chief Complaint/HPI Feels much better this morning and requesting to go home. Denies any SOB though remains on 4 liters. Objective Physical Examination General Exam: Positive: Alert, Cooperative, No Acute Distress Eye Exam: Positive: PERRLA, Conjunctiva & lids normal, EOMI; Negative: Sclera icteric ENT Exam: Positive: Atraumatic, Mucous membr. moist/pink, Pharynx Normal Neck Exam: Positive: Supple; Negative: JVD, thyromegaly Chest Exam: Positive: Rhonchi, Wheezing, Diminished Heart Exam: Positive: Rate Normal, Regular Rhythm, Normal S1, Normal S2; Negative: Murmurs, Rubs Abdomen Exam: Positive: Normal bowel sounds, Soft; Negative: Tenderness, Hepatospenomegaly Extremity Exam: Negative: Clubbing, Cyanosis, Edema Neuro Exam: Positive: Normal Speech, Strength at 5/5 X4 ext Assessment /Plan Assessment This is a 85 y/o male with a pmh of COPD, CAD s/p CABG, systolic CHF, a-fib s/p pacemaker and htn who presents to the ED with cc of increasing sob x3 days.]. Bacterial Pneumonia secondary to viral infection with Sepsis. CT chest shows confluent patchy airspace infiltrate within the left lower lobe atelectasis or pneumonia, lower lobe bronchial thickening and bronchial opacification, suggesting bronchitis bilaterally. There is a new 2.8 cm focal opacity within the right upper lobe, likely acute pneumonitis. A tiny area of a few mildly confluent ground-glass opacity seen within the left upper lobe, new compared to the prior study likely representing minimal pneumonitis. Levofloxacin. Sputum and blood culture ordered sputum culture form 08/25 stenotrophomonas. H/o necrotizing pneumonia in Jan 2020. COPD exacerbation due to Rhinovirus infection and pneumonia duonebs, prednisone, symbicort, levofloxacin Acute on chronic respiratory failure Spo2 was low to 85% with his home 2 liters Now requiring 4 ls to maintain at 88% at rest. Systolic CHF with grade 1 diastolic dysfunction and mild pulmonary hypertension. with EF of 40% to 45%. not in exacerbation at this time. Thrombocytopenia Patient has h/o thrombocytopenia in the past. Cause not apparent from chart review. patient does have a history of daily alcohol use in the past. CAD/ CABG/ continue nitro, asa Paroxysmal A-fib/ pacemaker in place continue eliquis H/o DVT with h/o positive lupus anticoagulant, low Protein c an protein s activity remains on eliquis. 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 H/o Hemorrhagic Pericardial tamponade in 2007 s/p pericardiotomy and pericardial window creation. Spontaneous hemorrhagic effusion was felt to be due to coagulopathy form alcohol intake. Alcohol use disorder Plan/VTE VTE Prophylaxis Ordered?: Yes VS, I&O, 24H, Fishbone Vital Signs/I&O Vital Signs Date Time Temp Pulse Resp B/P (MAP) Pulse Ox O2 Delivery O2 Flow Rate FiO2 09/17/20 10:00 97.7 71 16 111/59 (76) 88 Nasal Cannula 4.0 I&O- Last 24 Hours up to 6 AM 09/17/20 06:00 Intake Total 305 ml Balance 305 ml Laboratory Data 24H LABS Laboratory Tests 2 09/16/20 21:00: Blood Gas Bicarbonate Standard 24.0, Arterial Blood pH 7.428, Arterial Blood Partial Pressure CO2 36.6, Arterial Blood Partial Pressure O2 49.9*L, Arterial Blood Total CO2 24.8, Arterial Blood HCO3 23.6, Arterial Blood Base Excess -0.2, Arterial Blood Oxygen Saturation 87.7L 09/16/20 21:20: Immature Granulocyte % (Auto) 0.3, Neutrophils (%) (Auto) 77.5H, Lymphocytes (%) (Auto) 15.0L, Monocytes (%) (Auto) 6.1, Eosinophils (%) (Auto) 0.9, Basophils (%) (Auto) 0.2, Neutrophils # (Auto) 7.2, Lymphocytes # (Auto) 1.4L, Monocytes # (Auto) 0.6, Eosinophils # (Auto) 0.1, Basophils # (Auto) 0.0, Nucleated Red Blood Cells % (auto) 0.0, Immature Platelet Fraction 5.8, Anion Gap 8, Glomer ular Filtration Rate > 60.0, Calcium Level 8.5L, Total Bilirubin 0.5, Direct Bilirubin 0.1, Aspartate Amino Transf (AST/SGOT) 27, Alanine Aminotransferase (ALT/SGPT) 30, Alkaline Phosphatase 67, Total Creatine Kinase 151, Creatine Kinase MB 2.6, Creatine Kinase MB Relative Index 1.72, Troponin I < 0.02, UH-Yuf-M-Type Natriuretic Peptide 375, Total Protein 7.1, Albumin 3.6, Albumin/Globulin Ratio 1.0, Thyroid Stimulating Hormone (TSH) 0.848, Free Thyroxine 0.94 CBC/BMP Laboratory Tests 09/16/20 21:20 Microbiology Microbiology 09/16/20 Blood Culture, Received Pending 09/16/20 Blood Culture, Received Pending 09/16/20 Respiratory Virus Panel (PCR) ([facility]) - Final, Complete Human Rhinovirus/Enterovirus YANIQUE ROY MD Sep 17, 2020 13:20
[2020-09-17 14:00] VITALS: BP 121/61
--- NOTE | 2020-09-17 20:45 | ECGEPIP ---
[facility] - ED Test Date: 2020-09-16 Pat Name: ALVIN BAILEY Department: Room: [place] [address] Gender: Male Registered Nurse Fetal: KATIE : [id number] Requested By: LEONID Quintanilla Order Number: [id number] Reading MD: Patrica Tesfaye Measurements Intervals [place] Rate: 86 P: 80 [place]: 162 QRS: -66 QRSD: 148 T: 82 QT: 394 QTc: 471 Interpretive Statements Sinus rhythm with premature atrial complexes in a pattern of bigeminy Right bundle branch block Left anterior fascicular block Bifascicular block T wave abnormality, consider ischemia Electronically Signed on 09-17-2020 20:45:39 EDT by Patrica Tesfaye
[2020-09-17 21:00] VITALS: O2SAT 91
[2020-09-18] MEDS: IPRATROPIUM 0.5MG/ALBUTEROL 2.5MG INH SOL UD 3ML (DUONEB) NEB SCH ×3 (03:42→11:11)
[2020-09-18] MEDS: LevoFLOXacin IV 750 MG in IV 1 EA IV SCH (04:50)
[2020-09-18 06:00] VITALS: BP 130/62
[2020-09-18 06:53] LABS: HEMATOCRIT 43.3 % (42.0-52.0); MEAN CORPUSCULAR HEMOGLOBIN 33.2 pg (27.0-33.0); MEAN CORPUSCULAR HGB CONC 32.3 g/dl (32.0-36.5); MEAN CORPUSCULAR VOLUME 102.6 fl (80.0-96.0); PLATELET COUNT, AUTOMATED 113 10^3/uL (150-450); RED BLOOD COUNT 4.22 10^6/uL (4.30-6.10)
[2020-09-18 07:10] LABS: BLOOD UREA NITROGEN 14 MG/DL (7-18); CALCIUM LEVEL 8.7 MG/DL (8.8-10.2); CARBON DIOXIDE LEVEL 29 MEQ/L (21-32); CHLORIDE LEVEL 102 MEQ/L (98-107); CREATININE FOR GFR 0.85 MG/DL (0.70-1.30); GLOMERULAR FILTRATION RATE > 60.0 (>35); GLUCOSE, FASTING 181 MG/DL (70-100); POTASSIUM SERUM 4.2 MEQ/L (3.5-5.1); SODIUM LEVEL 138 MEQ/L (136-145)
[2020-09-18] MEDS: ADVAIR HFA 115/21MCG INHALER INH SCH (07:25)
[2020-09-18] MEDS: DOCUSATE SODIUM 100MG CAPSULE PO SCH (08:16)
[2020-09-18] MEDS: NICOTINE 14 MG/24 HR TRANSDERMAL TD SCH (08:16)
[2020-09-18] MEDS: OMEPRAZOLE 20 MG CAP PO SCH (08:16)
[2020-09-18] MEDS: APIXABAN 5 MG TAB (ELIQUIS) PO SCH (08:16)
[2020-09-18] MEDS ORDERED: predniSONE 20 MG TAB PO SCH (09:00)
[2020-09-18] MEDS ORDERED: LEVO750T13 PO (10:11)
[2020-09-18] MEDS ORDERED: PRED10TA2 PO (10:11)
--- NOTE | 2020-09-18 10:25 | IPNPDOC ---
Subjective Date Seen The patient was seen on 09/18/20. Subjective Chief Complaint/HPI Feels well, Deneis any SOB today. No fever for 24 hours. Wants to go home. Objective Physical Examination General Exam: Positive: Alert, Cooperative, No Acute Distress Eye Exam: Positive: PERRLA, Conjunctiva & lids normal, EOMI; Negative: Sclera icteric ENT Exam: Positive: Atraumatic, Mucous membr. moist/pink, Pharynx Normal Neck Exam: Positive: Supple; Negative: JVD, thyromegaly Chest Exam: Positive: Rhonchi, Wheezing, Diminished Heart Exam: Positive: Rate Normal, Regular Rhythm, Normal S1, Normal S2; Negative: Murmurs, Rubs Abdomen Exam: Positive: Normal bowel sounds, Soft; Negative: Tenderness, Hepatospenomegaly Extremity Exam: Negative: Clubbing, Cyanosis, Edema Neuro Exam: Positive: Normal Speech, Strength at 5/5 X4 ext Assessment /Plan Assessment This is a 85 y/o male with a pmh of COPD, CAD s/p CABG, systolic CHF, a-fib s/p pacemaker and htn who presents to the ED with cc of increasing sob x3 days.]. Bacterial Pneumonia secondary to viral infection with Sepsis. CT chest shows confluent patchy airspace infiltrate within the left lower lobe atelectasis or pneumonia, lower lobe bronchial thickening and bronchial opacification, suggesting bronchitis bilaterally. There is a new 2.8 cm focal opacity within the right upper lobe, likely acute pneumonitis. A tiny area of a few mildly confluent ground-glass opacity seen within the left upper lobe, new compared to the prior study likely representing minimal pneumonitis. Levofloxacin. Sputum and blood culture pending final reports. sputum culture form 08/25 stenotrophomonas. H/o necrotizing pneumonia in Jan 2020. COPD exacerbation due to Rhinovirus infection and pneumonia Continue home inhalers. prednisone, levofloxacin Acute on chronic respiratory failure Spo2 was low to 85% with his home 2 liters Now requiring 4 ls to maintain at 88% at rest. Systolic CHF with grade 1 diastolic dysfunction and mild pulmonary hypertension. with EF of 40% to 45%. not in exacerbation at this time. Thrombocytopenia Patient has h/o thrombocytopenia in the past. Cause not apparent from chart review. Platelet was 91 on admission up to 113 today Follow up with PCP CAD/ CABG/ continue nitro, asa Paroxysmal A-fib/ pacemaker in place continue eliquis H/o DVT with h/o positive lupus anticoagulant, low Protein c and protein s activity in the past 2007 remains on eliquis. 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 H/o Hemorrhagic Pericardial tamponade in 2007 s/p pericardiotomy and pericardial window creation. Spontaneous hemorrhagic effusion was felt to be due to coagulopathy form alcohol intake. H/o Alcohol use disorder occasionally drinks. Does not drink every week. Dispo: Home. Plan/VTE VTE Prophylaxis Ordered?: Yes VS, I&O, 24H, Fishbone Vital Signs/I&O Vital Signs Date Time Temp Pulse Resp B/P (MAP) Pulse Ox O2 Delivery O2 Flow Rate FiO2 09/18/20 08:00 2.0 09/18/20 06:00 97.2 84 19 130/62 (84) 90 Room Air I&O- Last 24 Hours up to 6 AM 09/18/20 06:00 Intake Total 1550 ml Output Total 1300 ml Balance 250 ml Laboratory Data 24H LABS Laboratory Tests 2 09/18/20 05:51: Nucleated Red Blood Cells % (auto) 0.0, Anion Gap 7L, Glomerular Filtration Rate > 60.0, Calcium Level 8.7L CBC/BMP Laboratory Tests 09/18/20 05:51 Microbiology Microbiology 09/17/20 Gram Stain - Final, Resulted 09/17/20 Sputum Culture, Resulted Pending 09/16/20 Blood Culture - Preliminary, Resulted No growth after 24 hours . All specim... 09/16/20 Blood Culture - Preliminary, Resulted No growth after 24 hours . All specim... 09/16/20 Respiratory Virus Panel (PCR) ([facility]) - Final, Complete Human Rhinovirus/Enterovirus YANIQUE ROY MD Sep 18, 2020 10:25
--- NOTE | 2020-09-20 11:34 | ED PDOC ---
Post-Departure Follow-Up radiology rpeort faxed to Patrica Mejia MD Sep 20, 2020 11:34
== END 2020-09-18 12:15 | disposition home or self-care (01) ==
LOC: M ED 20:20 → M ED INP 20:21 → ENRESERV 09-17 03:14 → M MSPAV 09-17 05:25
PROVIDERS: ADMIT Family Medicine; ATTEND Internal Medicine Nephrology
DX: J18.9 Pneumonia, unspecified organism (principal); J96.21 Acute and chronic respiratory failure with hypoxia; B34.8 Other viral infections of unspecified site; J44.1 Chronic obstructive pulmonary disease with (acute) exacerbation; I25.10 Atherosclerotic heart disease of native coronary artery without angina pectoris; Z95.1 Presence of aortocoronary bypass graft; Z95.0 Presence of cardiac pacemaker; I48.0 Paroxysmal atrial fibrillation; I50.20 Unspecified systolic (congestive) heart failure; I11.0 Hypertensive heart disease with heart failure; D69.6 Thrombocytopenia, unspecified; Z86.718 Personal history of other venous thrombosis and embolism; K21.9 Gastro-esophageal reflux disease without esophagitis; E78.49 Other hyperlipidemia; F17.218 Nicotine dependence, cigarettes, with other nicotine-induced disorders; Z79.01 Long term (current) use of anticoagulants; Z79.82 Long term (current) use of aspirin; Z79.899 Other long term (current) drug therapy
CPT/HCPCS: 36415; 36600; 71045; 71275; 80048; 80076; 82550; 82553; 82803; 83880; 84439; 84443; 84484; 85025; 85027; 85049; 85055; 87040; 87070; 87077; 87186; 87205; 87798; 93005; 93041; 94640; 96365; 96366; 96375; 99285; G0378; J0456; J0696; J1956; J2930; J7512; Q9967

== ENCOUNTER → 2021-01-26 | Outpatient (CLI) | payer MEDICARE ==
[~2021-01-26] MED LIST changes: +DOXY-443 PO; -DOXY1CAP62 PO; +FLUT1BLS8 IH; +IPRA0.00 NEB; +LEVO750T13 PO; +MULT-90 PO
--- NOTE | 2021-01-26 12:22 | REP ---
INDICATION: ABNORMAL FINDING OF LUNG FIELD. COMPARISON: 09/16/2020, 01/29/2020, 12/31/2019 and 08/14/2019 CT TECHNIQUE: Axial soft tissue and lung windows with both coronal and sagittal reconstructions provided. FINDINGS: Fax Machine Repairer image shows a dual lead pacer over the left upper chest with leads terminating in the region of the right atrium and ventricle sternotomy wires and mediastinal clips again noted. Of the lung churchill again show hyperinflation symmetric appearance. There are centrilobular emphysematous and bullous changes bilaterally. Some cylindrical bronchiectasis is noted. The patchy infiltrate in the left lower lobe on previous study is resolved. There is some minor dependent atelectatic change, peripheral fibrotic changes and some apical pleuroparenchymal scarring bilaterally, as before. The peripheral infiltrate in the right upper lobe on the previous study is improved with some nodular residual opacity or scar seen on images 38 and 39. No calcified pleural plaque, pleural based mass, parenchymal mass or new/acute infiltrate. Atherosclerotic calcifications are noted in the coronaries as well as the ascending, arch and descending aorta without aneurysm. No pericardial thickening or effusion. Small hiatal hernia and some thickening of the distal esophagus again seen and unchanged. Bone windows show the sternum and manubrium healed from prior sternotomy with wires intact. Clavicles, AC joints, glenohumeral joints, visualized scapulae and humeral heads are without acute finding. Ribs show no fracture or destructive lesion on either side spine is without compression deformity. Portion of upper abdomen included shows spleen not enlarged and normal in appearance. The liver is homogeneous and not enlarged. It is without a mass. There are a few calcified gallstones seen in the dependent portion of the gallbladder. The portion of pancreas and upper poles of kidneys seen were unchanged without definite acute finding adrenal glands intact. Upper abdominal aorta with atherosclerotic calcification but no aneurysm. IMPRESSION: 1. Advanced COPD with bullous emphysematous changes, peripheral fibrotic changes and interval clearing of the left lower lobe infiltrate. 2. The right upper lobe infiltrate from the prior exam shows improvement but with small nodular residual infiltrate or scarring in this same region. No effusion, new infiltrates, calcified pleural plaque or masses. 3. Heart unchanged. Sternotomy wires, mediastinal clips and dual lead pacer as before. 4. Small hiatal hernia and thickened distal esophagus. See the comments about this on the multiple prior CT studies. 5. Few small calcified gallstones seen in the gallbladder which is only partly visualized. No biliary dilatation nor any other significant upper abdominal findings. <Electronically signed by Alli Sommers > 01/26/21 [id number]
== END ==
LOC: M PLAIMG 10:31
PROVIDERS: ATTEND Internal Medicine Pulmonary Disease
DX: R91.8 Other nonspecific abnormal finding of lung field (principal)

== ENCOUNTER 2021-05-23 19:19 | Emergency (ER) | payer MEDICARE ==
[~2021-05-23] VITALS: Ht 170.2 cm; Wt 86.4 kg
[~2021-05-23 19:19] MED LIST changes: -AMIO200T3 PO; +AMIO200T49 PO; -LEVO500T3 PO; +LEVO500T4 PO; +OMEP-173 PO; -OMEP-218 PO
[2021-05-23] MEDS ORDERED: METF500T13 PO (19:37)
[2021-05-23] MEDS ORDERED: LIDOCAINE 2% 5ML JELLY UROJET TOP ONE (23:35)
[2021-05-23] MEDS ORDERED: MAGNESIUM CITRATE 300 ML BTL PO ONE (23:55)
[2021-05-24 00:27] LABS: BASO % 0.3 % (0.0-1.0); EOS # 0.1 10^3/uL (0.0-0.5); EOS % 1.5 % (0.0-3.0); HEMATOCRIT 46.1 % (42.0-52.0); HEMOGLOBIN 15.2 g/dl (13.5-17.5); LYMPH % 21.1 % (24.0-44.0); MEAN CORPUSCULAR HEMOGLOBIN 33.9 pg (27.0-33.0); MEAN CORPUSCULAR VOLUME 102.9 fl (80.0-96.0); MONO # 0.7 10^3/uL (0.0-0.8); MONO % 7.9 % (2.0-8.0); NEUTROPHILS # 6.4 10^3/uL (1.5-8.5); NEUTROPHILS % 68.9 % (36.0-66.0); PLATELET COUNT, AUTOMATED 162 10^3/uL (150-450); RED BLOOD COUNT 4.48 10^6/uL (4.30-6.10); WHITE BLOOD COUNT 9.3 10^3/uL (4.0-10.0)
[2021-05-24] MEDS ORDERED: FLOM0.4C39 PO (01:23)
[2021-05-24] MEDS ORDERED: COLA100C5 PO (01:23)
[2021-05-24] MEDS ORDERED: TAMSULOSIN 0.4 MG CAP PO ONE (01:25)
[2021-05-24 01:29] VITALS: BP 144/78
== END 2021-05-24 02:13 | disposition home or self-care (01) ==
LOC: M ED 19:19
DX: K56.41 Fecal impaction (principal); R33.9 Retention of urine, unspecified; I10 Essential (primary) hypertension; I25.2 Old myocardial infarction; J44.9 Chronic obstructive pulmonary disease, unspecified; F17.200 Nicotine dependence, unspecified, uncomplicated; Z79.811 Long term (current) use of aromatase inhibitors; Z79.899 Other long term (current) drug therapy

== ENCOUNTER 2021-05-28 16:32 | Emergency (ER) | payer MEDICARE ==
[~2021-05-28] VITALS: Ht 170.2 cm; Wt 84.1 kg
[~2021-05-28 16:32] MED LIST changes: +COLA100C5 PO; +FLOM0.4C39 PO; +METF500T13 PO
[2021-05-28 17:25] LABS: BASO % 0.3 % (0.0-1.0); EOS # 0.4 10^3/uL (0.0-0.5); EOS % 5.5 % (0.0-3.0); HEMATOCRIT 46.2 % (42.0-52.0); HEMOGLOBIN 15.1 g/dl (13.5-17.5); LYMPH # 1.7 10^3/uL (1.5-5.0); LYMPH % 26.7 % (24.0-44.0); MEAN CORPUSCULAR HEMOGLOBIN 33.6 pg (27.0-33.0); MEAN CORPUSCULAR HGB CONC 32.7 g/dl (32.0-36.5); MEAN CORPUSCULAR VOLUME 102.7 fl (80.0-96.0); MONO # 0.6 10^3/uL (0.0-0.8); MONO % 8.8 % (2.0-8.0); NEUTROPHILS # 3.7 10^3/uL (1.5-8.5); NEUTROPHILS % 58.4 % (36.0-66.0); PLATELET COUNT, AUTOMATED 161 10^3/uL (150-450); WHITE BLOOD COUNT 6.4 10^3/uL (4.0-10.0)
[2021-05-28 17:49] LABS: BLOOD UREA NITROGEN 11 MG/DL (7-18); CALCIUM LEVEL 9.4 MG/DL (8.8-10.2); CARBON DIOXIDE LEVEL 31 MEQ/L (21-32); CHLORIDE LEVEL 102 MEQ/L (98-107); CREATININE FOR GFR 0.88 MG/DL (0.70-1.30); GLOMERULAR FILTRATION RATE > 60.0 (>35); GLUCOSE, FASTING 105 MG/DL (70-100); SODIUM LEVEL 137 MEQ/L (136-145)
[2021-05-28 20:45] VITALS: BP 144/73
== END 2021-05-28 21:42 | disposition home or self-care (01) ==
LOC: EDBD 16:32 → M ED 16:32
DX: T83.091A Other mechanical complication of indwelling urethral catheter, initial encounter (principal); I10 Essential (primary) hypertension; K21.9 Gastro-esophageal reflux disease without esophagitis; I25.2 Old myocardial infarction; Z86.79 Personal history of other diseases of the circulatory system; Z98.84 Bariatric surgery status; F10.10 Alcohol abuse, uncomplicated; F17.200 Nicotine dependence, unspecified, uncomplicated; Z79.51 Long term (current) use of inhaled steroids; Z79.899 Other long term (current) drug therapy

== ENCOUNTER → 2021-08-09 | Outpatient (CLI) | payer MEDICARE ==
[~2021-08-09] MED LIST changes: +TAMS1CAP17 PO
== END ==
LOC: M LABSMTC 10:57
PROVIDERS: ATTEND Anesthesiology
DX: Z01.818 Encounter for other preprocedural examination (principal); Z11.52 Encounter for screening for COVID-19

== ENCOUNTER 2021-08-14 06:21 | Day surgery (SDC) | payer MEDICARE ==
[~2021-08-14] VITALS: Ht 172.7 cm; Wt 83.5 kg
[2021-08-14] MEDS ORDERED: ACETYLCHOLINE OPHTH SOLN 1% 2ML (MIOCHOL-E) As Ordered ONE (06:33)
[2021-08-14] MEDS ORDERED: LIDOCAINE 1% SDV 5ML VIAL As Ordered ONE (06:33)
[2021-08-14] MEDS ORDERED: PHENYLEPHRINE 2.5% OPHTH SOL 2ML OD SCH (06:40)
[2021-08-14] MEDS ORDERED: TROPICAMIDE 1% OPHTH SOLN 2ML OD SCH (06:40)
[2021-08-14] MEDS ORDERED: PROPARACAINE 0.5% OPHTH SOL 15ML OD ONE (06:40)
[2021-08-14] MEDS ORDERED: OFLOXACIN 0.3 % (OCUFLOX) OPTH SOL 5ML OD SCH (06:40)
[2021-08-14] MEDS ORDERED: fentaNYL 100 MCG/2 ML INJECTION As Ordered ONE (07:17)
[2021-08-14] MEDS ORDERED: MIDAZOLAM INJ 2MG/2ML VIAL (J2250 PER 1MG) As Ordered ONE (07:18)
[2021-08-14] MEDS ORDERED: INSULIN LISPRO (NovoLOG) PER UNIT SC PRN (07:30)
[2021-08-14] MEDS ORDERED: hydrALAZINE 20MG/ML 1ML VIAL (J0360 PER 20MG) As Ordered ONE (08:26)
[2021-08-14 08:50] VITALS: BP 123/59
== END 2021-08-14 09:02 | disposition home or self-care (01) ==
LOC: M SDC 06:21
PROVIDERS: ATTEND Ophthalmology
DX: H25.11 Age-related nuclear cataract, right eye (principal); I10 Essential (primary) hypertension; I25.10 Atherosclerotic heart disease of native coronary artery without angina pectoris; I25.2 Old myocardial infarction; E11.9 Type 2 diabetes mellitus without complications; E78.5 Hyperlipidemia, unspecified; Z95.0 Presence of cardiac pacemaker; Z79.01 Long term (current) use of anticoagulants; Z79.51 Long term (current) use of inhaled steroids; J44.9 Chronic obstructive pulmonary disease, unspecified; Z79.82 Long term (current) use of aspirin; N40.0 Benign prostatic hyperplasia without lower urinary tract symptoms; F32.A Depression, unspecified
CPT/HCPCS: 66984; J0360; J2250; J3010; V2632

== ENCOUNTER → 2021-09-13 | Outpatient (CLI) | payer MEDICARE | LOC: M LABSMTC 09:41 | PROVIDERS: ATTEND Anesthesiology | DX: Z01.812 Encounter for preprocedural laboratory examination (principal); Z20.822 Contact with and (suspected) exposure to COVID-19 ==

== ENCOUNTER 2021-09-18 08:04 | Day surgery (SDC) | payer MEDICARE ==
[~2021-09-18] VITALS: Ht 170.2 cm; Wt 84.8 kg
[~2021-09-18 08:04] MED LIST changes: +LIDOCAINE 1% SDV 5ML VIAL As Ordered ONE; +LR 1,000 ML IV SCH
[2021-09-18] MEDS ORDERED: INSULIN LISPRO (NovoLOG) PER UNIT SC PRN (08:20)
[2021-09-18] MEDS: CYCLOPENTOLATE 1% OPHTH SOLN 2 ML BTL OS SCH ×3 (08:23→08:50)
[2021-09-18] MEDS: TETRACAINE 0.5% OPHTH SOLN 4ML OS SCH ×2 (08:23→08:44)
[2021-09-18] MEDS: FLURBIPROFEN 0.03% OPHTH SOLN 2.5 ML OS SCH ×3 (08:24→08:50)
[2021-09-18] MEDS: PHENYLEPHRINE 2.5% OPHTH SOL 2ML OS SCH ×3 (08:24→08:50)
[2021-09-18] MEDS ORDERED: MIDAZOLAM INJ 2MG/2ML VIAL (J2250 PER 1MG) As Ordered ONE (09:38)
[2021-09-18] MEDS ORDERED: fentaNYL 100 MCG/2 ML INJECTION As Ordered ONE (09:38)
[2021-09-18 09:52] VITALS: BP 125/74
== END 2021-09-18 10:23 | disposition home or self-care (01) ==
LOC: M SDC 08:04
PROVIDERS: ATTEND Ophthalmology
DX: H25.12 Age-related nuclear cataract, left eye (principal); I25.10 Atherosclerotic heart disease of native coronary artery without angina pectoris; I50.9 Heart failure, unspecified; I11.9 Hypertensive heart disease without heart failure; Z79.51 Long term (current) use of inhaled steroids; J44.9 Chronic obstructive pulmonary disease, unspecified; E11.9 Type 2 diabetes mellitus without complications; D69.6 Thrombocytopenia, unspecified; F32.A Depression, unspecified; K59.00 Constipation, unspecified; Z79.01 Long term (current) use of anticoagulants; Z79.84 Long term (current) use of oral hypoglycemic drugs; Z79.899 Other long term (current) drug therapy
CPT/HCPCS: 66183; 66984; J2250; J3010; V2632

== ENCOUNTER → 2021-11-23 | Outpatient (CLI) | payer MEDICARE ==
[~2021-11-23] MED LIST changes: +LEVO1TAB39 PO; +LEVO1TAB40 PO; -LEVO500T4 PO; -LEVO750T13 PO; -LIDOCAINE 1% SDV 5ML VIAL As Ordered ONE; -LR 1,000 ML IV SCH
[2021-11-23 11:04] LABS: BASO % 0.5 % (0.0-1.0); EOS # 0.2 10^3/uL (0.0-0.5); EOS % 3.5 % (0.0-3.0); HEMATOCRIT 50.2 % (42.0-52.0); HEMOGLOBIN 16.7 g/dl (13.5-17.5); LYMPH # 1.5 10^3/uL (1.5-5.0); LYMPH % 23.9 % (24.0-44.0); MEAN CORPUSCULAR HEMOGLOBIN 33.8 pg (27.0-33.0); MEAN CORPUSCULAR HGB CONC 33.3 g/dl (32.0-36.5); MEAN CORPUSCULAR VOLUME 101.6 fl (80.0-96.0); MONO # 0.5 10^3/uL (0.0-0.8); MONO % 7.4 % (2.0-8.0); NEUTROPHILS # 3.9 10^3/uL (1.5-8.5); NEUTROPHILS % 64.4 % (36.0-66.0); PLATELET COUNT, AUTOMATED 131 10^3/uL (150-450); RED BLOOD COUNT 4.94 10^6/uL (4.30-6.10); WHITE BLOOD COUNT 6.1 10^3/uL (4.0-10.0)
[2021-11-23 11:24] LABS: ALT/SGPT 25 U/L (12-78); BILIRUBIN,TOTAL 0.8 MG/DL (0.2-1.0); BLOOD UREA NITROGEN 10 MG/DL (7-18); CALCIUM LEVEL 9.8 MG/DL (8.8-10.2); CARBON DIOXIDE LEVEL 26 MEQ/L (21-32); CHLORIDE LEVEL 102 MEQ/L (98-107); CHOLESTEROL LEVEL 125 MG/DL (<200); CHOLESTEROL RISK RATIO 2.659 (<5); CREATININE FOR GFR 0.91 MG/DL (0.70-1.30); GLOMERULAR FILTRATION RATE > 60.0 (>35); GLUCOSE, FASTING 131 MG/DL (70-100); HDL CHOLESTEROL 47 MG/DL (>40); LDL CHOLESTEROL 52 MG/DL (<100); NON-HDL-C 78 MG/DL; POTASSIUM SERUM 4.5 MEQ/L (3.5-5.1); SODIUM LEVEL 135 MEQ/L (136-145); TOTAL PROTEIN 7.3 GM/DL (6.4-8.2); TRIGLYCERIDES LEVEL 129 MG/DL (<150)
== END ==
LOC: M LAB 09:51
PROVIDERS: ATTEND Internal Medicine
DX: E78.5 Hyperlipidemia, unspecified (principal); E11.9 Type 2 diabetes mellitus without complications

== ENCOUNTER → 2022-08-22 | Outpatient (CLI) | payer MEDICARE | LOC: M WUC 12:56 | PROVIDERS: ATTEND Nurse Practitioner Family | DX: M79.674 Pain in right toe(s) (principal) ==

== ENCOUNTER 2023-08-29 13:32 | Emergency (ER) | payer MEDICARE ==
[~2023-08-29] VITALS: Ht 175.3 cm; Wt 81.8 kg
[~2023-08-29 13:32] MED LIST changes: +DOXY-323 PO; -DOXY-443 PO
[2023-08-29 13:34] VITALS: TEMP 99.1
[2023-08-29 14:37] LABS: BASO % 0.2 % (0.0-1.0); EOS % 0.1 % (0.0-3.0); HEMATOCRIT 44.4 % (42.0-52.0); HEMOGLOBIN 14.9 g/dl (13.5-17.5); LYMPH # 1.1 10^3/uL (1.5-5.0); LYMPH % 10.5 % (24.0-44.0); MEAN CORPUSCULAR HEMOGLOBIN 34.5 pg (27.0-33.0); MEAN CORPUSCULAR HGB CONC 33.6 g/dl (32.0-36.5); MEAN CORPUSCULAR VOLUME 102.8 fl (80.0-96.0); MONO # 0.8 10^3/uL (0.0-0.8); NEUTROPHILS # 8.5 10^3/uL (1.5-8.5); NEUTROPHILS % 80.8 % (36.0-66.0); PLATELET COUNT, AUTOMATED 132 10^3/uL (150-450); RED BLOOD COUNT 4.32 10^6/uL (4.30-6.10); WHITE BLOOD COUNT 10.5 10^3/uL (4.0-10.0)
[2023-08-29 14:48] LABS: INR 1.25; PARTIAL THROMBOPLASTIN TIME 29.9 SECONDS (24.8-34.2); PROTHROMBIN TIME 15.3 SECONDS (12.5-14.5)
[2023-08-29 15:02] LABS: LIPASE 27 U/L (12-53)
[2023-08-29 15:05] LABS: ALBUMIN 3.6 G/DL (3.2-5.2); ALKALINE PHOSPHATASE 51 U/L (46-116); ALT/SGPT 23 U/L (7.0-40); AST/SGOT 26 U/L (<34); BILIRUBIN,DIRECT 0.3 MG/DL (<0.4); BILIRUBIN,TOTAL 0.9 MG/DL (0.3-1.2); BLOOD UREA NITROGEN 13 MG/DL (9-23); CARBON DIOXIDE LEVEL 30 MMOL/L (20-31); CHLORIDE LEVEL 100 MMOL/L (98-107); CK-MB VALUE MASS 1.8 NG/ML (<3.6); CREATININE FOR GFR 0.77 MG/DL (0.70-1.30); GLOMERULAR FILTRATION RATE > 60.0 (>35); GLUCOSE, FASTING 146 MG/DL (74-106); POTASSIUM SERUM 4.8 MMOL/L (3.5-5.1); SODIUM LEVEL 134 MMOL/L (136-145); TOTAL PROTEIN 6.9 G/DL (5.7-8.2)
[2023-08-29 15:08] LABS: FREE T4 0.96 NG/DL (0.89-1.76)
[2023-08-29 15:09] LABS: CPK CREATINE PHOSPHOKINASE 116 U/L (46-171); MB/CK RELATIVE INDEX 1.55 (< OR =4); THYROID STIMULATING HORMONE 1.226 uIU/ML (0.55-4.78)
[2023-08-29] MEDS: IPRATROPIUM 0.5MG/ALBUTEROL 2.5MG INH SOL UD 3ML (DUONEB) NEB SCH (16:22)
[2023-08-29] MEDS: dexAMETHasone 20MG/5ML VIAL IV ONE (16:25)
[2023-08-29] MEDS: NS 2,450 ML in IV 1 EA IV ONE (18:33)
[2023-08-29] MEDS: cefTRIAXone SOD 2 GM in D5W MINI-BAG PLUS 50 ML IV ONE (18:36)
[2023-08-29] MEDS ORDERED: PRED20TA PO (19:35)
[2023-08-29] MEDS ORDERED: MUCI1TAB16 PO (19:35)
[2023-08-29] MEDS ORDERED: LEVO750T14 PO (19:35)
[2023-08-29] MEDS ORDERED: LevoFLOXacin 750 MG TABLET PO ONE (19:40)
[2023-08-29 19:58] VITALS: O2SAT 92
[2023-08-29 20:01] VITALS: BP 127/58
== END 2023-08-29 20:21 | disposition home or self-care (01) ==
LOC: M ED 13:32 → M ED INP 19:13 → UNDOADMOB 19:13 → M ED 20:21
DX: J18.1 Lobar pneumonia, unspecified organism (principal); A41.9 Sepsis, unspecified organism; I10 Essential (primary) hypertension; K21.9 Gastro-esophageal reflux disease without esophagitis; J44.9 Chronic obstructive pulmonary disease, unspecified; Z86.79 Personal history of other diseases of the circulatory system; Z87.891 Personal history of nicotine dependence; Z79.52 Long term (current) use of systemic steroids; Z79.4 Long term (current) use of insulin; Z79.01 Long term (current) use of anticoagulants; Z79.02 Long term (current) use of antithrombotics/antiplatelets; Z79.82 Long term (current) use of aspirin; Z79.899 Other long term (current) drug therapy; Z95.0 Presence of cardiac pacemaker
CPT/HCPCS: 36415; 71045; 71250; 80048; 80076; 82550; 82553; 83605; 83690; 83880; 84439; 84443; 84484; 85025; 85610; 85730; 87040; 87486; 87581; 87633; 87798; 93005; 93041; 94640; 94760; 96374; 96375; 99285; J0696; J1100

== ENCOUNTER → 2023-09-11 | Outpatient (CLI) | payer MEDICARE ==
[~2023-09-11] MED LIST changes: +LEVO750T14 PO; +MUCI1TAB16 PO
[2023-09-11 18:37] LABS: BASO % 0.3 % (0.0-1.0); EOS # 0.1 10^3/uL (0.0-0.5); EOS % 1.8 % (0.0-3.0); HEMOGLOBIN 15.1 g/dl (13.5-17.5); LYMPH # 1.9 10^3/uL (1.5-5.0); LYMPH % 29.2 % (24.0-44.0); MEAN CORPUSCULAR HEMOGLOBIN 33.9 pg (27.0-33.0); MEAN CORPUSCULAR HGB CONC 32.1 g/dl (32.0-36.5); MEAN CORPUSCULAR VOLUME 105.4 fl (80.0-96.0); MONO # 0.4 10^3/uL (0.0-0.8); MONO % 5.9 % (2.0-8.0); NEUTROPHILS # 4.1 10^3/uL (1.5-8.5); NEUTROPHILS % 62.3 % (36.0-66.0); PLATELET COUNT, AUTOMATED 134 10^3/uL (150-450); RED BLOOD COUNT 4.46 10^6/uL (4.30-6.10); WHITE BLOOD COUNT 6.6 10^3/uL (4.0-10.0)
[2023-09-11 18:40] LABS: ALBUMIN 3.3 G/DL (3.2-5.2); ALKALINE PHOSPHATASE 54 U/L (46-116); ALT/SGPT 27 U/L (7.0-40); AST/SGOT 18 U/L (<34); BILIRUBIN,TOTAL 0.6 MG/DL (0.3-1.2); BLOOD UREA NITROGEN 14 MG/DL (9-23); CALCIUM LEVEL 9.4 MG/DL (8.3-10.6); CARBON DIOXIDE LEVEL 33 MMOL/L (20-31); CHLORIDE LEVEL 101 MMOL/L (98-107); CHOLESTEROL LEVEL 126 MG/DL (<200); CHOLESTEROL RISK RATIO 2.85 (<5); CREATININE FOR GFR 0.85 MG/DL (0.70-1.30); GLOMERULAR FILTRATION RATE > 60.0 (>35); GLUCOSE, FASTING 215 MG/DL (74-106); HDL CHOLESTEROL 44.1 MG/DL (>40); LDL CHOLESTEROL 47.3 MG/DL (<100); NON-HDL-C 81.9 MG/DL; POTASSIUM SERUM 4.5 MMOL/L (3.5-5.1); SODIUM LEVEL 136 MMOL/L (136-145); TOTAL PROTEIN 6.2 G/DL (5.7-8.2); TRIGLYCERIDES LEVEL 173 MG/DL (<150)
[2023-09-11 18:58] LABS: HEMOGLOBIN A1c 7.4 % (4.0-6.0)
== END ==
LOC: M WUC 12:25
PROVIDERS: ATTEND Internal Medicine
DX: E11.9 Type 2 diabetes mellitus without complications (principal); E78.5 Hyperlipidemia, unspecified

== ENCOUNTER → 2023-10-16 | Outpatient (CLI) | payer MEDICARE | LOC: M RAD 13:19 | PROVIDERS: ATTEND Internal Medicine | DX: J18.9 Pneumonia, unspecified organism (principal) ==

== ENCOUNTER → 2023-12-10 | Outpatient (CLI) | payer MEDICARE | LOC: M RAD 13:54 | PROVIDERS: ATTEND Internal Medicine | DX: J18.9 Pneumonia, unspecified organism (principal) ==

== ENCOUNTER → 2023-12-11 | Outpatient (CLI) | payer MEDICARE ==
[2023-12-11 18:51] LABS: BASO % 0.5 % (0.0-1.0); EOS # 0.1 10^3/uL (0.0-0.5); HEMATOCRIT 47.6 % (42.0-52.0); HEMOGLOBIN 15.3 g/dl (13.5-17.5); LYMPH # 1.7 10^3/uL (1.5-5.0); LYMPH % 26.2 % (24.0-44.0); MEAN CORPUSCULAR HEMOGLOBIN 33.8 pg (27.0-33.0); MEAN CORPUSCULAR HGB CONC 32.1 g/dl (32.0-36.5); MEAN CORPUSCULAR VOLUME 105.3 fl (80.0-96.0); MONO # 0.5 10^3/uL (0.0-0.8); MONO % 8.2 % (2.0-8.0); NEUTROPHILS % 62.8 % (36.0-66.0); PLATELET COUNT, AUTOMATED 160 10^3/uL (150-450); RED BLOOD COUNT 4.52 10^6/uL (4.30-6.10); WHITE BLOOD COUNT 6.4 10^3/uL (4.0-10.0)
[2023-12-11 19:22] LABS: HEMOGLOBIN A1c 7.1 % (4.0-6.0)
[2023-12-11 19:24] LABS: ALBUMIN 3.7 G/DL (3.2-5.2); ALKALINE PHOSPHATASE 66 U/L (46-116); ALT/SGPT 22 U/L (7.0-40); AST/SGOT 19 U/L (<34); BILIRUBIN,TOTAL 0.6 MG/DL (0.3-1.2); BLOOD UREA NITROGEN 15 MG/DL (9-23); CALCIUM LEVEL 9.1 MG/DL (8.3-10.6); CARBON DIOXIDE LEVEL 31 MMOL/L (20-31); CHLORIDE LEVEL 103 MMOL/L (98-107); CHOLESTEROL LEVEL 122 MG/DL (<200); GLOMERULAR FILTRATION RATE > 60.0 (>35); GLUCOSE, FASTING 146 MG/DL (74-106); HDL CHOLESTEROL 50.8 MG/DL (>40); LDL CHOLESTEROL 36.4 MG/DL (<100); NON-HDL-C 71.2 MG/DL; POTASSIUM SERUM 4.6 MMOL/L (3.5-5.1); SODIUM LEVEL 139 MMOL/L (136-145); TOTAL PROTEIN 7.1 G/DL (5.7-8.2); TRIGLYCERIDES LEVEL 174 MG/DL (<150)
== END ==
LOC: M WUC 12:36
PROVIDERS: ATTEND Internal Medicine
DX: I48.91 Unspecified atrial fibrillation (principal); E78.5 Hyperlipidemia, unspecified; E11.9 Type 2 diabetes mellitus without complications

== ENCOUNTER → 2024-05-06 | Outpatient (CLI) | payer MEDICARE ==
[~2024-05-06] MED LIST changes: -DOXY-323 PO; +DOXY-441 PO; -LEVO750T14 PO; +LEVO75TAB PO
[2024-05-06 16:47] LABS: ALBUMIN 3.6 G/DL (3.2-5.2); ALKALINE PHOSPHATASE 60 U/L (40-129); ALT/SGPT 21 U/L (7.0-40); AST/SGOT 22 U/L (<34); BILIRUBIN,TOTAL 0.7 MG/DL (0.3-1.2); BLOOD UREA NITROGEN 12 MG/DL (9-23); CALCIUM LEVEL 9.5 MG/DL (8.3-10.6); CARBON DIOXIDE LEVEL 32 MMOL/L (20-31); CHLORIDE LEVEL 102 MMOL/L (98-107); CHOLESTEROL LEVEL 123 MG/DL (<200); CHOLESTEROL RISK RATIO 2.12 (<5); CREATININE FOR GFR 0.72 MG/DL (0.70-1.30); GLOMERULAR FILTRATION RATE > 60.0 (>35); GLUCOSE, FASTING 146 MG/DL (74-106); HDL CHOLESTEROL 57.8 MG/DL (>40); LDL CHOLESTEROL 47.8 MG/DL (<100); NON-HDL-C 65.2 MG/DL; POTASSIUM SERUM 4.2 MMOL/L (3.5-5.1); SODIUM LEVEL 140 MMOL/L (136-145); TOTAL PROTEIN 7.1 G/DL (5.7-8.2); TRIGLYCERIDES LEVEL 87 MG/DL (<150)
== END ==
LOC: M WUC 10:59
PROVIDERS: ATTEND Internal Medicine
DX: E78.5 Hyperlipidemia, unspecified (principal); E11.9 Type 2 diabetes mellitus without complications

== ENCOUNTER 2024-11-12 18:05 | Emergency (ER) | payer MEDICARE ==
[~2024-11-12] VITALS: Ht 170.2 cm; Wt 72.8 kg
[~2024-11-12 18:05] MED LIST changes: -AMIO200T49 PO; +AMIO200T54 PO; -FLOM0.4C39 PO; +TAMS-18 PO
[2024-11-12] MEDS: CYCLOBENZAPRINE 5 MG TABLET PO ONE (20:11)
[2024-11-12] MEDS: ACETAMINOPHEN 500 MG TAB PO ONE (20:11)
[2024-11-12] MEDS ORDERED: METH-1164 PO (20:59)
[2024-11-12] MEDS ORDERED: LIDO1ADH93 TOP (20:59)
[2024-11-12] MEDS ORDERED: MEDR4PAK PO (20:59)
[2024-11-12 21:16] VITALS: BP 128/65; TEMP 99.1; O2SAT 92
== END 2024-11-12 21:19 | disposition home or self-care (01) ==
LOC: M ED 18:05
DX: M43.12 Spondylolisthesis, cervical region (principal); M62.838 Other muscle spasm; I50.22 Chronic systolic (congestive) heart failure; E11.9 Type 2 diabetes mellitus without complications; G47.33 Obstructive sleep apnea (adult) (pediatric); Z79.1 Long term (current) use of non-steroidal anti-inflammatories (NSAID); Z79.51 Long term (current) use of inhaled steroids; Z79.01 Long term (current) use of anticoagulants; Z79.84 Long term (current) use of oral hypoglycemic drugs; Z79.899 Other long term (current) drug therapy; Z79.810 Long term (current) use of selective estrogen receptor modulators (SERMs)